=== PATIENT | female | born 1945 | race Caucasian/White ===

== ENCOUNTER 2017-09-20 18:25 | Inpatient (IN) | payer MEDICARE, OTHER ==
[~2017-09-20] VITALS: Ht 157.5 cm; Wt 59.2 kg
--- NOTE | 2017-09-20 18:32 | ED.ADGEN ---
Past History Past Medical History: Dementia, Depression, Other Adult General Chief Complaint Chief Complaint ".. Why am I here... I don't want to be here.. 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 I don't need to be here... My brother.. Juwan Camargo... I am really mad.. 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 Pt. recently in rehab. [facility] since after a fall. Pt. discharged today to [facility]. eval. to be completed by Dr. Bunn. Pt. POA is Juwan Camargo- brother [phone]. Pt. felt to have presentation of alcoholic encephalopathy, GERD, Neuropathy peripheral, delirium, alcoholic, T-4 compression fx, agitation, and depression. Pt. Follows with Dr. Lm Franz. Pt. follows agitation has not been moderated with Seroquel and Ativan. Review of Systems Review of Systems Pt. has no complaints- other than chronic pain Constitutional: Denies fever or chills [] Eyes: Denies change in visual acuity, redness, or eye pain [] HENT: Denies nasal congestion or sore throat [] Respiratory: Denies cough or shortness of breath [] Cardiovascular: No additional information not addressed in HPI [] GI: Denies abdominal pain, nausea, vomiting, bloody stools or diarrhea [] : Denies dysuria or hematuria [] Musculoskeletal: Denies back pain or joint pain [] Integument: Denies rash or skin lesions [] Neurologic: Denies headache, focal weakness or sensory changes [] Endocrine: Denies polyuria or polydipsia [] All other systems were reviewed and found to be within normal limits, except as documented in this note. Family History Family History Denies Current Medications Current Medications Current Medications Medications (Trade) Dose Ordered Sig/Yue Start Time Stop Time Status Last Admin Dose Admin Lactated Ringer's 1,000 ml @ 1,000 mls/hr 1X ONCE 09/20/17 21:00 09/20/17 21:59 Lorazepam (Ativan) 2 mg 1X ONCE 09/20/17 20:00 09/20/17 20:01 DC 09/20/17 20:00 2 MG Oxycodone/ Acetaminophen (Percocet 7.5/ 325) 2 tab 1X ONCE 09/20/17 20:00 09/20/17 20:01 DC 09/20/17 19:45 2 TAB See Nursing for homoe meds Allergies Allergies Allergies Coded Allergies Type Severity Reaction Last Updated Verified Sulfa (Sulfonamide Antibiotics) Allergy Unknown 09/20/17 Yes Physical Exam Physical Exam Constitutional: In acute emotional distress, non-toxic appearance. [] HENT: Normocephalic, atraumatic, bilateral external ears normal, oropharynx moist, no oral exudates, nose normal. [] Eyes: PERRLA, EOMI, conjunctiva normal, no discharge. [] Neck: Normal range of motion, no tenderness, supple, no stridor. [] Cardiovascular: Tachycardia Heart rate regular rhythm, no murmur [] Lungs & Thorax: Bilateral breath sounds equal at apex and few scattered wheezes on auscultation [] Abdomen: Bowel sounds normal, soft, no tenderness, no masses, no pulsatile masses. [] Old scar. Skin: Warm, dry, no erythema, no rash. [] Back: No tenderness, no CVA tenderness. [] Extremities: No tenderness, no cyanosis, no clubbing, ROM intact, no edema. [] Neurologic: Alert and oriented X 3, normal motor function, decrease plantar sensory function, no focal deficits noted. [] Psychologic: Affect anxious, judgement limited insight, mood depressed. Current Patient Data Vital Signs Vital Signs Date Time Temp Pulse Resp B/P (MAP) Pulse Ox O2 Delivery O2 Flow Rate FiO2 09/20/17 21:03 98.1 106 20 122/57 (78) 98 Room Air Lab Results Laboratory Tests Test 09/20/17 18:48 White Blood Count 5.5 x10^3/uL (4.0-11.0) Red Blood Count 3.03 x10^6/uL (3.50-5.40) L Hemoglobin 9.8 g/dL (12.0-15.5) L Hematocrit 29.0 % (36.0-47.0) L Mean Corpuscular Volume 96 fL (79-100) Mean Corpuscular Hemoglobin 33 pg (25-35) Mean Corpuscular Hemoglobin Concent 34 g/dL (31-37) Red Cell Distribution Width 16.1 % (11.5-14.5) H Platelet Count 442 x10^3/uL (140-400) H Neutrophils (%) (Auto) 59 % (31-73) Lymphocytes (%) (Auto) 26 % (24-48) Monocytes (%) (Auto) 11 % (0-9) H Eosinophils (%) (Auto) 4 % (0-3) H Basophils (%) (Auto) 1 % (0-3) Neutrophils # (Auto) 3.2 x10^3uL (1.8-7.7) Lymphocytes # (Auto) 1.4 x10^3/uL (1.0-4.8) Monocytes # (Auto) 0.6 x10^3/uL (0.0-1.1) Eosinophils # (Auto) 0.2 x10^3/uL (0.0-0.7) Basophils # (Auto) 0.0 x10^3/uL (0.0-0.2) Erythrocyte Sedimentation Rate 73 (0-25) H Prothrombin Time < 9.3 SEC (9.4-11.4) L Prothrombin Time INR 0.9 (0.9-1.1) PTT 22 SEC (23-33) L Urine Collection Type Unknown Urine Color Yellow Urine Clarity Clear Urine pH 6.0 Urine Specific [place] 1.015 Urine Protein Neg (NEG-TRACE) Urine Glucose (UA) Neg mg/dL (NEG) Urine Ketones (Stick) Neg mg/dL (NEG) Urine Blood Neg (NEG) Urine Nitrite Neg (NEG) Urine Bilirubin Neg (NEG) Urine Urobilinogen Dipstick 0.2 mg/dL (0.2 mg/dL) Urine Leukocyte Esterase Neg (NEG) Urine RBC Occ /HPF (0-2) Urine WBC 1-4 /HPF (0-4) Urine Squamous Epithelial Cells Few /LPF Urine Bacteria Few /HPF (0-FEW) Sodium Level 141 mmol/L (136-145) Potassium Level 4.3 mmol/L (3.5-5.1) Chloride Level 103 mmol/L (98-107) Carbon Dioxide Level 27 mmol/L (21-32) Anion Gap 11 (6-14) Blood Urea Nitrogen 15 mg/dL (7-20) Creatinine 0.9 mg/dL (0.6-1.0) Estimated GFR (Cockcroft-Gault) 61.9 Glucose Level 85 mg/dL (70-99) Calcium Level 8.9 mg/dL (8.5-10.1) Magnesium Level 1.9 mg/dL (1.8-2.4) Creatine Kinase 88 U/L (26-192) Creatine Kinase MB (Mass) 0.8 ng/mL (0.0-3.6) Creatine Kinase MB Relative Index 0.9 % (0-4) Troponin I Quantitative < 0.017 ng/mL (0-0.055) VY-Orz-T-Type Natriuretic Peptide 234 pg/mL (0-124) H Urine Opiates Screen Pos (NEG) Urine Methadone Screen Neg (NEG) Urine Barbiturates Neg (NEG) Urine Phencyclidine Screen Neg (NEG) Urine Amphetamine/Methamphetamine Neg (NEG) Urine Benzodiazepines Screen Neg (NEG) Urine Cocaine Screen Neg (NEG) Urine Cannabinoids Screen Neg (NEG) Urine Ethyl Alcohol Neg (NEG) EKG EKG My interpretation EKG shows a sinus tachycardia 109 bpm. No findings acute STEMI with contralateral changes.[] Radiology/Procedures Radiology/Procedures My interpretation of chest x-ray shows emphysematous type changes. Some blunting a left closed phrenic angle. Old clips right abdomen. Scoliosis, my interpretation CT shows no shift, mass, edema, bleed, or fracture. Does have findings of atrophy. I interpretation CT cervical shows multilevel degenerative joint changes. No finding to acute fracture. Course & Med Decision Making Course & Med Decision Making Pertinent Labs and Imaging studies reviewed. (See chart for details)- Admit to , Consult Dr. Andrew to follow up pending labs and medical issues. [] Final Impression Final Impression 1. Mental Status Change 2. Anxiety 3. Depression 4. Hx. of Alcoholic Encephalopathy 5. Anemia 6. Dehydration[] Problems: Dragon Disclaimer Dragon Disclaimer This electronic medical record was generated, in whole or in part, using a voice recognition dictation system. JUAN MORALES MD Sep 20, 2017 18:32
[2017-09-20 19:18] LABS: BASO % 1 % (0-3); EOS # 0.2 x10^3/uL (0.0-0.7); EOS % 4 % (0-3); HEMOGLOBIN 9.8 g/dL (12.0-15.5); LYMPH # 1.4 x10^3/uL (1.0-4.8); LYMPH % 26 % (24-48); MEAN CORPUSCULAR HEMOGLOBIN 33 pg (25-35); MEAN CORPUSCULAR HGB CONC 34 g/dL (31-37); MEAN CORPUSCULAR VOLUME 96 fL (79-100); MONO # 0.6 x10^3/uL (0.0-1.1); MONO % 11 % (0-9); NEUT # 3.2 x10^3uL (1.8-7.7); NEUT % 59 % (31-73); PLATELET COUNT 442 x10^3/uL (140-400); RED BLOOD COUNT 3.03 x10^6/uL (3.50-5.40); RED CELL DISTRIBUTION WIDTH 16.1 % (11.5-14.5); WHITE BLOOD COUNT 5.5 x10^3/uL (4.0-11.0)
[2017-09-20 19:22] LABS: AMPHETAMINE/METHAMPHETAMINE NEG (NEG); BARBITURATES NEG (NEG); BENZODIAZEPINES NEG (NEG); CANNABINOIDS NEG (NEG); COCAINE NEG (NEG); METHADONE NEG (NEG); OPIATES POS (NEG); PHENCYCLIDINE NEG (NEG)
[2017-09-20 19:34] LABS: BILIRUBIN,URINE NEG (NEG); CLARITY,URINE CLEAR; COLOR,URINE YELLOW; GLUCOSE,URINE NEG (NEG)
[2017-09-20 19:36] LABS: CALCIUM 8.9 mg/dL (8.5-10.1); CREATININE 0.9 mg/dL (0.6-1.0); GFR 61.9; MAGNESIUM 1.9 mg/dL (1.8-2.4); POTASSIUM 4.3 mmol/L (3.5-5.1)
[2017-09-20 19:37] LABS: BACTERIA,URINE FEW /HPF (0-FEW); NITRITE,URINE NEG (NEG); RBC,URINE OCC /HPF (0-2); SQUAMOUS EPITHELIAL CELL,UR FEW /LPF; UROBILINOGEN,URINE 0.2 mg/dL (0.2 mg/dL)
[2017-09-20] MEDS ORDERED: oxyCODONE/APAP 7.5/325 1 TAB TABLET ONE (19:44)
[2017-09-20] MEDS ORDERED: LORazepam 2 MG/ML VIAL IV ONE (20:00)
[2017-09-20] MEDS ORDERED: oxyCODONE/APAP 7.5/325 1 TAB TABLET PO ONE (20:00)
--- NOTE | 2017-09-20 20:22 | RAD ---
Indication: Confusion, possible fall. TECHNIQUE: CT had without IV contrast. CT cervical spine without IV contrast. COMPARISON: None FINDINGS: No pathologic extra-axial or intra-axial fluid collection. Mild diffuse cerebral and cerebellar atrophy noted. The ventricles and basal cisterns are within normal limits. No acute intracranial bleed. No focal loss of goode-white differentiation. Visualized orbits within normal limits. No calvarial fractures. There is opacification of the partially visualized ethmoid air cells and left sinus. IMPRESSION: 1. No acute intracranial process on this noncontrast CT. 2. Left frontal and ethmoid sinus disease. CT cervical spine: FINDINGS: Cervical spine is in normal anatomic alignment. Atlantoaxial joint interval is preserved with degenerative changes. No compression deformities. Facet joints are in normal anatomic alignment. Multilevel intervertebral disc space narrowing is seen with anterior and posterior osteophyte formation. No acute fractures. Visualized noncontrast soft tissues within the neck are within normal limits. IMPRESSION: 1. No acute fractures. 2. Multilevel degenerative disc disease with advanced facet arthropathy. Electronically signed by: Duke Siegel DO (09/20/2017 8:19 PM) [facility]
[2017-09-20 20:35] LABS: SEDIMENTATION RATE 73 (0-25)
--- NOTE | 2017-09-20 20:38 | EKG ---
[address] [address] Test Date: 2017-09-20 Test Time: 18:53:17 Pat Name: EMANUEL XIAO Department: Room: Gender: F Respiratory Manager: CASEY : 1945 Requested By: JUAN MORALES Order Number: [id number] Reading MD: Demetrius Stiles MD Measurements Intervals [place] Rate: 109 P: 42 ID: [id number] QRS: 67 QRSD: 66 T: 22 QT: 310 QTc: 419 Interpretive Statements SINUS TACHYCARDIA Electronically Signed On 09-23-2017 16:33:07 CDT by Demetrius Stiles MD
[2017-09-20] MEDS ORDERED: CALC500T PO (20:58)
[2017-09-20] MEDS ORDERED: LORA10TA68 PO (20:58)
[2017-09-20] MEDS ORDERED: FOLI1TAB16 PO (20:58)
[2017-09-20] MEDS ORDERED: MENT118G TP (20:58)
[2017-09-20] MEDS ORDERED: TRAM-48 PO (20:58)
[2017-09-20] MEDS ORDERED: FLUT16SP21 NS (20:58)
[2017-09-20] MEDS ORDERED: THIA100T22 PO (20:58)
[2017-09-20] MEDS ORDERED: DIPH25CA58 PO (20:58)
[2017-09-20] MEDS ORDERED: MULT-638 PO (20:58)
[2017-09-20] MEDS ORDERED: HYDR-971 PO (20:58)
[2017-09-20] MEDS ORDERED: LIDO700A39 TP (20:58)
[2017-09-20] MEDS ORDERED: QUET25TA5 PO (20:58)
[2017-09-20] MEDS ORDERED: LACT10SO PO (20:58)
[2017-09-20] MEDS ORDERED: LORA0.5T96 PO (20:58)
[2017-09-20] MEDS ORDERED: SODI44SP NS (20:58)
[2017-09-20] MEDS: PATCH REMOVAL. MC SCH (21:00)
[2017-09-20] MEDS ORDERED: IV RINGERS SOLUTION,LACTATED 1,000 ML IV ONE (21:00)
[2017-09-20] MEDS ORDERED: NON FORMULARY ITEM (Menthol (Biofreeze) 1 APP) TP PRN (22:00)
[2017-09-20] MEDS ORDERED: MAG HYDROX/AL HYDROX/SIMETH 30 ML ORAL.SUSP PO PRN (22:00)
[2017-09-20] MEDS ORDERED: METHYL SALICYLATE/MENTHOL TOPICAL OINTMENT 29GM TUBE. TP PRN (22:00)
[2017-09-20] MEDS ORDERED: MAGNESIUM HYDROXIDE 2,400 MG/30 ML ORAL.SUSP. PO PRN (22:00)
[2017-09-20] MEDS ORDERED: LACTULOSE 20 GM/30 ML SOLUTION. PO PRN (22:15)
[2017-09-20] MEDS: diphenhydrAMINE HCL 25 MG CAPSULE PO PRN (23:03)
[2017-09-20] MEDS: QUEtiapine 25 MG TABLET. PO SCH (23:15)
[2017-09-20 23:22] VITALS: BP 122/72
[2017-09-21] MEDS: HYDROcodone/APAP 5/325MG 1 TAB TABLET PO PRN ×3 (03:55→19:37)
[2017-09-21] MEDS: LORazepam 0.5 MG TABLET PO PRN ×3 (06:18→19:52)
[2017-09-21 06:31] VITALS: BP 105/51
[2017-09-21 08:10] LABS: BASO # 0.1 x10^3/uL (0.0-0.2); BASO % 2 % (0-3); EOS # 0.2 x10^3/uL (0.0-0.7); EOS % 5 % (0-3); HEMATOCRIT 27.3 % (36.0-47.0); HEMOGLOBIN 9.2 g/dL (12.0-15.5); LYMPH # 1.2 x10^3/uL (1.0-4.8); LYMPH % 26 % (24-48); MEAN CORPUSCULAR HEMOGLOBIN 33 pg (25-35); MEAN CORPUSCULAR HGB CONC 34 g/dL (31-37); MEAN CORPUSCULAR VOLUME 97 fL (79-100); MONO # 0.5 x10^3/uL (0.0-1.1); MONO % 11 % (0-9); NEUT # 2.5 x10^3uL (1.8-7.7); NEUT % 55 % (31-73); PLATELET COUNT 424 x10^3/uL (140-400); RED BLOOD COUNT 2.83 x10^6/uL (3.50-5.40); RED CELL DISTRIBUTION WIDTH 16.1 % (11.5-14.5); WHITE BLOOD COUNT 4.6 x10^3/uL (4.0-11.0)
[2017-09-21 08:25] LABS: CALCIUM 9.1 mg/dL (8.5-10.1); CREATININE 0.8 mg/dL (0.6-1.0); GFR 70.9; POTASSIUM 3.8 mmol/L (3.5-5.1)
--- NOTE | 2017-09-21 09:10 | RAD ---
EXAM: Chest one view. HISTORY: Dyspnea. COMPARISON: None. FINDINGS: A frontal view of the chest is obtained. There is rotation to the left. Mild opacities in the left base most likely indicate atelectasis or scarring. There is no pneumothorax or pleural effusion. The heart is not enlarged. Cholecystectomy clips are noted. IMPRESSION: 1. No confluent infiltrates. Mild opacities in the left base most likely indicate atelectasis or scarring. Comparison with older radiographs could confirm long-term stability.
[2017-09-21] MEDS: CETIRIZINE HCL 10 MG TABLET PO SCH (09:24)
[2017-09-21] MEDS: MULTIVITAMIN with MINERAL TABLET. PO SCH (09:24)
[2017-09-21] MEDS: FOLIC ACID 1 MG TABLET PO SCH (09:24)
[2017-09-21] MEDS: QUEtiapine 25 MG TABLET. PO SCH ×2 (09:24→14:08)
[2017-09-21] MEDS: THIAMINE 100 MG TABLET. PO SCH ×2 (09:24→19:33)
[2017-09-21] MEDS: LIDOCAINE (700MG/PATCH) PATCH. TP SCH (09:25)
[2017-09-21] MEDS: FLUTICASONE 50MCG/NASAL SPRAY 16GM BOTTLE. NS SCH ×2 (09:25→19:36)
[2017-09-21 14:08] LABS: THYROXINE 4.9 ug/dL (4.5-12.0)
--- NOTE | 2017-09-21 16:02 | EKG ---
[address] [address] Test Date: 2017-09-21 Test Time: 15:54:34 Pat Name: EMANUEL XIAO Department: Room: [address] [place] [address] Gender: F Sample Sawyer: ROBERT : 1945 Requested By: TEO FINN Order Number: [id number] Reading MD: Demetrius Stiles MD Measurements Intervals [place] Rate: 119 P: 42 IA: 140 QRS: 57 QRSD: 72 T: 16 QT: 302 QTc: 431 Interpretive Statements SINUS TACHYCARDIA LOW VOLTAGE Electronically Signed On 09-30-2017 11:44:55 CDT by Demetrius Stiles MD
[2017-09-21 16:30] VITALS: BP 117/58
--- NOTE | 2017-09-21 18:24 | PDOC ---
Exam Note: Brandon Note: Please also refer to the separate dictated note~for this date of service dictated separately.~Patient seen individually. Discussed the patient with Nursing staff reviewed the chart.~Reviewed interim history and current functioning. Reviewed vital signs,~Labs/ Radiology~and current medications noted below. Continue current treatment with the changes noted in the dictated addendum note Assessment: Vital Signs: Vital Signs Date Time Temp Pulse Resp B/P (MAP) Pulse Ox O2 Delivery O2 Flow Rate FiO2 09/21/17 16:30 97.3 126 18 117/58 (77) 100 Room Air I&O Intake and Output 09/21/17 07:00 Intake Total 120 ml Balance 120 ml Intake Oral 120 ml Labs: Laboratory Tests Test 09/20/17 18:48 09/20/17 20:25 09/20/17 20:36 09/21/17 07:44 White Blood Count 5.5 x10^3/uL (4.0-11.0) 4.6 x10^3/uL (4.0-11.0) Red Blood Count 3.03 x10^6/uL (3.50-5.40) L 2.83 x10^6/uL (3.50-5.40) L Hemoglobin 9.8 g/dL (12.0-15.5) L 9.2 g/dL (12.0-15.5) L Hematocrit 29.0 % (36.0-47.0) L 27.3 % (36.0-47.0) L Mean Corpuscular Volume 96 fL (79-100) 97 fL (79-100) Mean Corpuscular Hemoglobin 33 pg (25-35) 33 pg (25-35) Mean Corpuscular Hemoglobin Concent 34 g/dL (31-37) 34 g/dL (31-37) Red Cell Distribution Width 16.1 % (11.5-14.5) H 16.1 % (11.5-14.5) H Platelet Count 442 x10^3/uL (140-400) H 424 x10^3/uL (140-400) H Neutrophils (%) (Auto) 59 % (31-73) 55 % (31-73) Lymphocytes (%) (Auto) 26 % (24-48) 26 % (24-48) Monocytes (%) (Auto) 11 % (0-9) H 11 % (0-9) H Eosinophils (%) (Auto) 4 % (0-3) H 5 % (0-3) H Basophils (%) (Auto) 1 % (0-3) 2 % (0-3) Neutrophils # (Auto) 3.2 x10^3uL (1.8-7.7) 2.5 x10^3uL (1.8-7.7) Lymphocytes # (Auto) 1.4 x10^3/uL (1.0-4.8) 1.2 x10^3/uL (1.0-4.8) Monocytes # (Auto) 0.6 x10^3/uL (0.0-1.1) 0.5 x10^3/uL (0.0-1.1) Eosinophils # (Auto) 0.2 x10^3/uL (0.0-0.7) 0.2 x10^3/uL (0.0-0.7) Basophils # (Auto) 0.0 x10^3/uL (0.0-0.2) 0.1 x10^3/uL (0.0-0.2) Erythrocyte Sedimentation Rate 73 (0-25) H Prothrombin Time < 9.3 SEC (9.4-11.4) L Prothrombin Time INR 0.9 (0.9-1.1) PTT 22 SEC (23-33) L Urine Collection Type Unknown Urine Color Yellow Urine Clarity Clear Urine pH 6.0 Urine Specific [place] 1.015 Urine Protein Neg (NEG-TRACE) Urine Glucose (UA) Neg mg/dL (NEG) Urine Ketones (Stick) Neg mg/dL (NEG) Urine Blood Neg (NEG) Urine Nitrite Neg (NEG) Urine Bilirubin Neg (NEG) Urine Urobilinogen Dipstick 0.2 mg/dL (0.2 mg/dL) Urine Leukocyte Esterase Neg (NEG) Urine RBC Occ /HPF (0-2) Urine WBC 1-4 /HPF (0-4) Urine Squamous Epithelial Cells Few /LPF Urine Bacteria Few /HPF (0-FEW) Sodium Level 141 mmol/L (136-145) 144 mmol/L (136-145) Potassium Level 4.3 mmol/L (3.5-5.1) 3.8 mmol/L (3.5-5.1) Chloride Level 103 mmol/L (98-107) 107 mmol/L (98-107) Carbon Dioxide Level 27 mmol/L (21-32) 27 mmol/L (21-32) Anion Gap 11 (6-14) 10 (6-14) Blood Urea Nitrogen 15 mg/dL (7-20) 12 mg/dL (7-20) Creatinine 0.9 mg/dL (0.6-1.0) 0.8 mg/dL (0.6-1.0) Estimated GFR (Cockcroft-Gault) 61.9 70.9 Glucose Level 85 mg/dL (70-99) 108 mg/dL (70-99) H Calcium Level 8.9 mg/dL (8.5-10.1) 9.1 mg/dL (8.5-10.1) Magnesium Level 1.9 mg/dL (1.8-2.4) Creatine Kinase 88 U/L (26-192) Creatine Kinase MB (Mass) 0.8 ng/mL (0.0-3.6) Creatine Kinase MB Relative Index 0.9 % (0-4) Troponin I Quantitative < 0.017 ng/mL (0-0.055) IR-Sfn-I-Type Natriuretic Peptide 234 pg/mL (0-124) H Thyroid Stimulating Hormone (TSH) 2.251 uIU/mL (0.358-3.740) Urine Opiates Screen Pos (NEG) Urine Methadone Screen Neg (NEG) Urine Barbiturates Neg (NEG) Urine Phencyclidine Screen Neg (NEG) Urine Amphetamine/Methamphetamine Neg (NEG) Urine Benzodiazepines Screen Neg (NEG) Urine Cocaine Screen Neg (NEG) Urine Cannabinoids Screen Neg (NEG) Urine Ethyl Alcohol Neg (NEG) Iron Level 53 ug/dL (50-170) Total Iron Binding Capacity 241 ug/dL (250-450) L Iron Saturation 22 % (15-34) Triglycerides Level 159 mg/dL (0-150) H Cholesterol Level 219 mg/dL (0-200) H LDL Cholesterol, Calculated 110 mg/dL (0-100) H VLDL Cholesterol, Calculated 31 mg/dL (0-40) Non-HDL Cholesterol Calculated 141 mg/dL (0-129) H HDL Cholesterol 78 mg/dL (40-60) H Cholesterol/HDL Ratio 2.0 Thyroxine (T4) 4.9 ug/dL (4.5-12.0) Total Triiodothyronine (TT3) 107 ng/dL (71-180) Reticulocyte Count (auto) 1.4 % (0.5-2.5) Current Medications: Meds: Current Medications Lorazepam (Ativan) 2 mg 1X ONCE IV Last administered on 09/20/17at 20:00; Start 09/20/17 at 20:00; Stop 09/20/17 at 20:01; Status DC Oxycodone/ Acetaminophen (Percocet 7.5/ 325) 1 tab STK-MED ONCE .ROUTE ; Start 09/20/17 at 19:44; Stop 09/20/17 at 19:45; Status DC Oxycodone/ Acetaminophen (Percocet 7.5/ 325) 2 tab 1X ONCE PO Last administered on 09/20/17at 19:45; Start 09/20/17 at 20:00; Stop 09/20/17 at 20:01 ; Status DC Lactated Ringer's 1,000 ml @ 1,000 mls/hr 1X ONCE IV ; Start 09/20/17 at 21:00 ; Stop 09/20/17 at 21:59; Status DC Acetaminophen (Tylenol) 650 mg PRN Q6HRS PRN PO PAIN / TEMP; Start 09/20/17 at 22:00 Multi-Ingredient Ointment (Analgesic [place]) 1 kenneth PRN QID PRN TP MUSCLE PAIN; Start 09/20/17 at 22:00 Al Hydroxide/Mg Hydroxide (Mylanta Plus Xs) 15 ml PRN AFTMEALHC PRN PO DYSPEPSIA Last administered on 09/21/17at 01:24; Start 09/20/17 at 22:00 Magnesium Hydroxide (Milk Of Magnesia) 2,400 mg PRN QHS PRN PO CONSTIPATION; Start 09/20/17 at 22:00 Lorazepam (Ativan) 0.5 mg PRN Q4HRS PRN PO ANXIETY / AGITATION Last administered on 09/21/17at 15:28; Start 09/20/17 at 22:00 Quetiapine Fumarate (SEROquel) 25 mg TID PO Last administered on 09/21/17at 14: 08; Start 09/20/17 at 22:30 Calcium Carbonate/ Glycine (Tums) 500 mg PRN QID PRN PO DYSPEPSIA; Start at 22:00 Diphenhydramine HCl (Benadryl) 25 mg PRN BID PRN PO ALLERGIES Last administered on 09/20/17 23:03; Start 09/20/17 at 22:00 Fluticasone Propionate (Flonase) 2 spray BID NS Last administered on 09/21/17 09:25; Start 09/21/17 at 09:00 Folic Acid (Folic Acid) 1 mg DAILY PO Last administered on 09/21/17 09:24; Start 09/21/17 at 09:00 Acetaminophen/ Hydrocodone Bitart (Lortab 5/325) 1 tab PRN Q6HRS PRN PO MODERATE PAIN Last administered on 09/21/17at 11:37; Start 09/20/17 at 22:00 Acetaminophen/ Hydrocodone Bitart (Lortab 5/325) 2 tab PRN Q6HRS PRN PO SEVERE PAIN Last administered on 09/21/17 03:55; Start 09/20/17 at 22:00 Lidocaine (Lidoderm) 1 patch DAILY TP Last administered on 09/21/17 09:25; Start 09/21/17 at 09:00 Multivitamins/ Calcium (Thera-M Plus) 1 tab DAILY PO Last administered on 09:24; Start 09/21/17 at 09:00 Sodium Chloride (Saline Mist Nasal) 2 kenneth PRN Q2HR PRN NS Nasal Congestion; Start 09/20/17 at 22:00 Tramadol HCl (Ultram) 50 mg PRN Q6HRS PRN PO PAIN; Start 09/20/17 at 22:00 Lactulose (Lactulose) 10 gm PRN QID PRN PO CONSTIPATION; Start 09/20/17 at 22: 15 Cetirizine HCl (ZyrTEC) 10 mg DAILY PO Last administered on 09/21/17 09:24; Start 09/21/17 at 09:00 Non-Formulary Medication (Menthol (Biofreeze)) 1 kenneth PRN TID PRN TP MUSCLE PAIN ; Start 09/20/17 at 22:00; Status UNV Thiamine HCl (Vitamin B-1) 100 mg BID PO Last administered on 09/21/17at 09:24; Start 09/21/17 at 09:00 Miscellaneous (Lidoderm Patch Removal) 1 ea QHS MC Last administered on at 21:00; Start 09/20/17 at 21:00 Active Scripts Active Reported Claritin (Loratadine) 10 Mg Tablet 10 Mg PO DAILY [place] (Sodium Chloride) 44 Ml Anna 1 Anna NS PRN Q2HR PRN Fluticasone Propionate Nasal Anna (Fluticasone Propionate) 16 Gm Anna.susp 2 Anna NS BID Benadryl (Diphenhydramine Hcl) 25 Mg Capsule 25 Mg PO PRN BID PRN Ultram (Tramadol HCl) 50 Mg Tablet 50 Mg PO PRN Q6HRS PRN Ativan (Lorazepam) 0.5 Mg Tablet 0.5 Mg PO PRN Q4HRS PRN Seroquel (Quetiapine Fumarate) 25 Mg Tablet 25 Mg PO TID Calcium Carbonate 500 Mg Tablet 500 Mg PO PRN QID PRN Biofreeze (Menthol) 118 Ml Gel..ml. 1 Kenneth TP PRN TID PRN Lactulose 10 Gm/15 Ml Solution 10 Gm PO PRN QID PRN Vitamin B-1 (Thiamine Mononitrate) 100 Mg Tablet 100 Mg PO BID Thera M Plus Tablet (Multivits,Ca,Minerals/Iron/FA) 1 Each Tablet 1 Tab PO DAILY Lidocaine 1 Each Adh..patch 1 Patch TP DAILY [place] 5-325 Tablet (Hydrocodone Bit/Acetaminophen) 1 Each Tablet 2 Tab PO PRN Q6HRS PRN [place] 5-325 Tablet (Hydrocodone Bit/Acetaminophen) 1 Each Tablet 1 Tab PO PRN Q6HRS PRN Folic Acid 1 Mg Tablet 1 Mg PO DAILY I have reviewed the current psychotropics carefully including drug interactions. Risk benefit ratio favors no change other than as noted in my dictated progress note. Diagnosis: Problems: (1) Major depressive disorder, recurrent episode (2) Anxiety disorder (3) Alcohol-induced persisting dementia (4) Alcohol dependence (5) Impulse control disorder DAVID SWAN MD Sep 21, 2017 18:24
[2017-09-21] MEDS: PATCH REMOVAL. MC SCH (19:37)
[2017-09-21] MEDS: QUEtiapine 50 MG TABLET. PO SCH (19:37)
--- NOTE | 2017-09-21 19:53 | PDOC ---
Exam Note: Brandon Note: Please also refer to the separate dictated note~for this date of service dictated separately.~Patient seen individually. Discussed the patient with Nursing staff reviewed the chart.~Reviewed interim history and current functioning. Reviewed vital signs,~Labs/ Radiology~and current medications noted below. Continue current treatment with the changes noted in the dictated addendum note Assessment: Vital Signs: Vital Signs Date Time Temp Pulse Resp B/P (MAP) Pulse Ox O2 Delivery O2 Flow Rate FiO2 09/21/17 19:37 20 Room Air 09/21/17 16:30 97.3 126 117/58 (77) 100 I&O Intake and Output 09/21/17 07:00 Intake Total 120 ml Balance 120 ml Intake Oral 120 ml Labs: Laboratory Tests Test 09/20/17 20:25 09/20/17 20:36 09/21/17 07:44 Iron Level 53 ug/dL (50-170) Total Iron Binding Capacity 241 ug/dL (250-450) L Iron Saturation 22 % (15-34) Triglycerides Level 159 mg/dL (0-150) H Cholesterol Level 219 mg/dL (0-200) H LDL Cholesterol, Calculated 110 mg/dL (0-100) H VLDL Cholesterol, Calculated 31 mg/dL (0-40) Non-HDL Cholesterol Calculated 141 mg/dL (0-129) H HDL Cholesterol 78 mg/dL (40-60) H Cholesterol/HDL Ratio 2.0 Thyroxine (T4) 4.9 ug/dL (4.5-12.0) Total Triiodothyronine (TT3) 107 ng/dL (71-180) Reticulocyte Count (auto) 1.4 % (0.5-2.5) White Blood Count 4.6 x10^3/uL (4.0-11.0) Red Blood Count 2.83 x10^6/uL (3.50-5.40) L Hemoglobin 9.2 g/dL (12.0-15.5) L Hematocrit 27.3 % (36.0-47.0) L Mean Corpuscular Volume 97 fL (79-100) Mean Corpuscular Hemoglobin 33 pg (25-35) Mean Corpuscular Hemoglobin Concent 34 g/dL (31-37) Red Cell Distribution Width 16.1 % (11.5-14.5) H Platelet Count 424 x10^3/uL (140-400) H Neutrophils (%) (Auto) 55 % (31-73) Lymphocytes (%) (Auto) 26 % (24-48) Monocytes (%) (Auto) 11 % (0-9) H Eosinophils (%) (Auto) 5 % (0-3) H Basophils (%) (Auto) 2 % (0-3) Neutrophils # (Auto) 2.5 x10^3uL (1.8-7.7) Lymphocytes # (Auto) 1.2 x10^3/uL (1.0-4.8) Monocytes # (Auto) 0.5 x10^3/uL (0.0-1.1) Eosinophils # (Auto) 0.2 x10^3/uL (0.0-0.7) Basophils # (Auto) 0.1 x10^3/uL (0.0-0.2) Sodium Level 144 mmol/L (136-145) Potassium Level 3.8 mmol/L (3.5-5.1) Chloride Level 107 mmol/L (98-107) Carbon Dioxide Level 27 mmol/L (21-32) Anion Gap 10 (6-14) Blood Urea Nitrogen 12 mg/dL (7-20) Creatinine 0.8 mg/dL (0.6-1.0) Estimated GFR (Cockcroft-Gault) 70.9 Glucose Level 108 mg/dL (70-99) H Calcium Level 9.1 mg/dL (8.5-10.1) Current Medications: Meds: Current Medications Lorazepam (Ativan) 2 mg 1X ONCE IV Last administered on 09/20/17at 20:00; Start 09/20/17 at 20:00; Stop 09/20/17 at 20:01; Status DC Oxycodone/ Acetaminophen (Percocet 7.5/ 325) 1 tab STK-MED ONCE .ROUTE ; Start 09/20/17 at 19:44; Stop 09/20/17 at 19:45; Status DC Oxycodone/ Acetaminophen (Percocet 7.5/ 325) 2 tab 1X ONCE PO Last administered on 09/20/17at 19:45; Start 09/20/17 at 20:00; Stop 09/20/17 at 20:01 ; Status DC Lactated Ringer's 1,000 ml @ 1,000 mls/hr 1X ONCE IV ; Start 09/20/17 at 21:00 ; Stop 09/20/17 at 21:59; Status DC Acetaminophen (Tylenol) 650 mg PRN Q6HRS PRN PO PAIN / TEMP; Start 09/20/17 at 22:00 Multi-Ingredient Ointment (Analgesic [place]) 1 kenneth PRN QID PRN TP MUSCLE PAIN; Start 09/20/17 at 22:00 Al Hydroxide/Mg Hydroxide (Mylanta Plus Xs) 15 ml PRN AFTMEALHC PRN PO DYSPEPSIA Last administered on 09/21/17at 01:24; Start 09/20/17 at 22:00 Magnesium Hydroxide (Milk Of Magnesia) 2,400 mg PRN QHS PRN PO CONSTIPATION; Start 09/20/17 at 22:00 Lorazepam (Ativan) 0.5 mg PRN Q4HRS PRN PO ANXIETY / AGITATION Last administered on 09/21/17at 15:28; Start 09/20/17 at 22:00 Quetiapine Fumarate (SEROquel) 25 mg TID PO Last administered on 09/21/17at 14: 08; Start 09/20/17 at 22:30; Stop 09/21/17 at 18:38; Status DC Calcium Carbonate/ Glycine (Tums) 500 mg PRN QID PRN PO DYSPEPSIA; Start at 22:00 Diphenhydramine HCl (Benadryl) 25 mg PRN BID PRN PO ALLERGIES Last administered on 09/20/17at 23:03; Start 09/20/17 at 22:00 Fluticasone Propionate (Flonase) 2 spray BID NS Last administered on 09/21/17at 19:36; Start 09/21/17 at 09:00 Folic Acid (Folic Acid) 1 mg DAILY PO Last administered on 09/21/17at 09:24; Start 09/21/17 at 09:00 Acetaminophen/ Hydrocodone Bitart (Lortab 5/325) 1 tab PRN Q6HRS PRN PO MODERATE PAIN Last administered on 09/21/17at 19:37; Start 09/20/17 at 22:00 Acetaminophen/ Hydrocodone Bitart (Lortab 5/325) 2 tab PRN Q6HRS PRN PO SEVERE PAIN Last administered on 09/21/17 03:55; Start 09/20/17 at 22:00 Lidocaine (Lidoderm) 1 patch DAILY TP Last administered on 09/21/17 09:25; Start 09/21/17 at 09:00 Multivitamins/ Calcium (Thera-M Plus) 1 tab DAILY PO Last administered on 09:24; Start 09/21/17 at 09:00 Sodium Chloride (Saline Mist Nasal) 2 kenneth PRN Q2HR PRN NS Nasal Congestion; Start 09/20/17 at 22:00 Tramadol HCl (Ultram) 50 mg PRN Q6HRS PRN PO PAIN; Start 09/20/17 at 22:00 Lactulose (Lactulose) 10 gm PRN QID PRN PO CONSTIPATION; Start 09/20/17 at 22: 15 Cetirizine HCl (ZyrTEC) 10 mg DAILY PO Last administered on 09/21/17 09:24; Start 09/21/17 at 09:00 Non-Formulary Medication (Menthol (Biofreeze)) 1 kenneth PRN TID PRN TP MUSCLE PAIN ; Start 09/20/17 at 22:00; Status UNV Thiamine HCl (Vitamin B-1) 100 mg BID PO Last administered on 09/21/17 19:33; Start 09/21/17 at 09:00 Miscellaneous (Lidoderm Patch Removal) 1 ea QHS MC Last administered on 19:37; Start 09/20/17 at 21:00 Quetiapine Fumarate (SEROquel) 25 mg BID92 PO ; Start 09/22/17 at 09:00 Quetiapine Fumarate (SEROquel) 50 mg QHS PO Last administered on 09/21/17 19: 37; Start 09/21/17 at 21:00 Active Scripts Active Reported Claritin (Loratadine) 10 Mg Tablet 10 Mg PO DAILY [place] (Sodium Chloride) 44 Ml [place] 1 [place] NS PRN Q2HR PRN Fluticasone Propionate Nasal [place] (Fluticasone Propionate) 16 Gm [place].susp 2 [place] NS BID Benadryl (Diphenhydramine Hcl) 25 Mg Capsule 25 Mg PO PRN BID PRN Ultram (Tramadol HCl) 50 Mg Tablet 50 Mg PO PRN Q6HRS PRN Ativan (Lorazepam) 0.5 Mg Tablet 0.5 Mg PO PRN Q4HRS PRN Seroquel (Quetiapine Fumarate) 25 Mg Tablet 25 Mg PO TID Calcium Carbonate 500 Mg Tablet 500 Mg PO PRN QID PRN Biofreeze (Menthol) 118 Ml Gel..ml. 1 Kenneth TP PRN TID PRN Lactulose 10 Gm/15 Ml Solution 10 Gm PO PRN QID PRN Vitamin B-1 (Thiamine Mononitrate) 100 Mg Tablet 100 Mg PO BID Thera M Plus Tablet (Multivits,Ca,Minerals/Iron/FA) 1 Each Tablet 1 Tab PO DAILY Lidocaine 1 Each Adh..patch 1 Patch TP DAILY [place] 5-325 Tablet (Hydrocodone Bit/Acetaminophen) 1 Each Tablet 2 Tab PO PRN Q6HRS PRN [place] 5-325 Tablet (Hydrocodone Bit/Acetaminophen) 1 Each Tablet 1 Tab PO PRN Q6HRS PRN Folic Acid 1 Mg Tablet 1 Mg PO DAILY I have reviewed the current psychotropics carefully including drug interactions. Risk benefit ratio favors no change other than as noted in my dictated progress note. Diagnosis: Problems: (1) Depression (2) Alcohol-induced persisting dementia (3) Alcohol dependence (4) Anxiety disorder (5) Impulse control disorder (6) Major depressive disorder, recurrent episode DAVID SWAN MD Sep 21, 2017 19:53
[2017-09-21] MEDS: SODIUM CHLORIDE 0.65% NASAL SPRAY 45ML BOTTLE. NS PRN (20:49)
[2017-09-22 03:10] LABS: HEMOGLOBIN A1C 4.5 % (4.8-5.6)
[2017-09-22] MEDS: HYDROcodone/APAP 5/325MG 1 TAB TABLET PO PRN ×3 (06:15→17:49)
[2017-09-22 06:25] VITALS: BP 134/73
--- NOTE | 2017-09-22 08:14 | HP ---
ADMIT DATE: 09/20/2017 PSYCHIATRIC ADMISSION HISTORY/EVALUATION This note covers the elements not covered in my initial note for of 09/21/2017. IDENTIFYING DATA: The patient is a 72-year-old female referred to us from [facility] by Dr. Lm Franz, her primary care physician and admitted by Juwan Camargo, her brother who is the power of real estate attorney after the power of real estate attorney was activated following neuropsychological testing by a psychologist at the facility after the patient was voicing suicidal ideation, even though she has denied having a plan, was noted to be emotionally labile, hopeless, helpless, worthless. Apparently, her 5 weeks ago. Since then, she has been extremely depressed, recommended inpatient psychiatric stabilization and close observation due to her suicidal risk for depression within the context of her dementia secondary to alcohol abuse. The patient was seen individually, discussed with nursing staff, reviewed the chart. CHIEF COMPLAINT: "My back is hurting." HISTORY OF PRESENT ILLNESS: The patient has a history of worsening symptoms of depression over the past few weeks, worse since her 5 weeks ago. She has had sleep and appetite changes. Admits to feeling helpless, hopeless, worthless and has been more confused secondary to dementia related to alcohol abuse. No clear history of bipolar disorder or homicidal ideation. PAST PSYCHIATRIC HISTORY: As above. PAST MEDICAL HISTORY: Positive alcoholic encephalopathy, GERD, neuropathy, alcohol related delirium, history of alcohol abuse, T4 compression fracture. DRUG ALLERGIES: SULFA. CODE STATUS: Full code. CURRENT PSYCHOTROPICS: Ativan 0.5 mg q. 4 hours p.r.n. anxiety, Seroquel 25 mg 3 times a day. The patient has a TLSO brace that needs to be worn ____ . FAMILY HISTORY: Noncontributory. SOCIAL HISTORY: Positive history of alcohol abuse. No physical, sexual or elder abuse history is noted. She is not known to be a perpetrator. MENTAL STATUS EXAMINATION: The patient was seen individually in the evening of 09/21/2017. She is oriented to her name, date of and age, but little else. She complains of back pain. REVIEW OF SYSTEMS: No CV, , pulmonary, eye, ENT system symptoms on review. Speech is coherent, rapid at times. Abstraction fair, computation impaired, language function intact, attention span short. Mood and affect remains somewhat labile. LABORATORY DATA: Reviewed. REACTION TO HOSPITALIZATION: The patient oblivious of this assets, supportive brother who is her power of real estate attorney. 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 Rest as above. PLAN: Admit to geropsychiatry unit at [facility]. I will see the patient daily individually from a psychiatric standpoint, medical followup per Dr. Andrew/Dr. Ledesma. 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 We will go ahead and increase the Seroquel from 25 mg 3 times a day to 25 mg twice a day, 50 mg at bedtime; add Zyprexa 2.5 mg q. 2 hours p.r.n. psychosis, agitation, max 10 mg in 24 hours. Rest will be decided after baseline assessment. MAN Dannielle SWAN MD DR: KATHERINE/mauro JOB#: [id number] / [id number]
[2017-09-22] MEDS: FOLIC ACID 1 MG TABLET PO SCH (08:19)
[2017-09-22] MEDS: THIAMINE 100 MG TABLET. PO SCH ×2 (08:19→19:18)
[2017-09-22] MEDS: diphenhydrAMINE HCL 25 MG CAPSULE PO PRN (08:19)
[2017-09-22] MEDS: MULTIVITAMIN with MINERAL TABLET. PO SCH (08:19)
[2017-09-22] MEDS: CETIRIZINE HCL 10 MG TABLET PO SCH (08:19)
[2017-09-22] MEDS: LIDOCAINE (700MG/PATCH) PATCH. TP SCH (08:20)
[2017-09-22] MEDS: QUEtiapine 25 MG TABLET. PO SCH ×2 (08:21→13:08)
[2017-09-22] MEDS: FLUTICASONE 50MCG/NASAL SPRAY 16GM BOTTLE. NS SCH ×2 (08:21→19:19)
--- NOTE | 2017-09-22 13:01 | CONS ---
DATE OF CONSULTATION: 09/21/2017 REASON FOR CONSULTATION: Medical management. HISTORY OF PRESENT ILLNESS: The patient is a 72-year-old female patient, who was admitted from [facility]. She has been making suicidal ideation statements with no glans. She is labile. She has lost her about 5 weeks ago. She has depressed affect and was admitted. All this in a background of major neurocognitive disorder, alcohol abuse and adjustment disorder. She is here for inpatient psychiatric stabilization. PAST MEDICAL HISTORY: Significant for alcohol encephalopathy, gastroesophageal reflux disease, neuropathy, delirium, tachycardia and T4 compression fracture. PAST SURGICAL HISTORY: Significant for cataract and hysterectomy. FAMILY HISTORY: Unremarkable. SOCIAL HISTORY: She came from [facility]. Before that she used to live with her . She does not smoke. She actually has two 2 sons, one live in [place] and another is an [place]. She does not smoke, but apparently drinks alcohol heavily. REVIEW OF SYSTEMS: The patient's labs per history of present illness. ALLERGIES: She is allergic to SULFA. MEDICATIONS: She is currently on following medications: She is on diphenhydramine 25 mg twice a day as needed, loratadine 10 mg daily, hydrocodone/APAP 5/325 one tablet every 6 hours and one to two tablets every 6 hours. She is on tramadol 50 mg every 6 hours, Seroquel 25 mg 3 times a day, lorazepam 0.5 mg every 4 hours, lactulose 20 mL q.i.d. p.r.n. for constipation, calcium carbonate 500 mg 4 times a day, Flonase 2 sprays to each nostril once a day. [place] nasal spray one spray to each nostril every 2 hours, Lidoderm patches topically once a day, vitamin B1 for thiamine 100 mg twice a day, folic acid 1 mg once a day, multivitamin once a day. PHYSICAL EXAMINATION: GENERAL: On examining her, she was sitting comfortably in her chair, in no apparent distress. She was pale, somewhat cachectic, but no jaundice, cyanosis or thyromegaly. No jugular venous distension. No limb edema. VITAL SIGNS: Her heart rate was 108, blood pressure was 105/51, temperature was 98.9, respiratory rate was 14 and oxygen saturation was 90%. HEAD, EYES, EARS, NOSE AND THROAT: Showed normocephalic, atraumatic. NECK: Supple. HEART: Showed normal first and second heart sounds. No gallop, rub or murmur. CHEST: Clear to auscultation. No crepitation or rhonchi. ABDOMEN: Distended, soft, nontender. No guarding or rigidity. No organomegaly. All hernial orifice intact. Bowel sounds normal. NEUROLOGIC: She was awake, alert, but somewhat confused. All her cranial nerves intact. EXTREMITIES: She moves her extremities without difficulty. She ambulates without assistance or assistive devices. LABORATORY DATA: Showed serum sodium of 141, potassium 4.3, chloride 103, bicarbonate 27, anion gap of 11, BUN 15, creatinine 0.9, estimated GFR was 63 mL per minute. Her glucose was 85, calcium was 8.9, magnesium was 1.9. Her serum iron was 53. TIBC was . Her TSH was 2.251, total T4 was 4.9, total T3 was 107, her serum triglyceride 159, total cholesterol 219. The LDL cholesterol was 110, VLDL was 51, HDL cholesterol was 78 and ratio was 2. Her prothrombin time was 9.3, INR of 0.9, aPTT was 22. Urinalysis was essentially unremarkable and toxic screen was positive for opiates, negative for all other drugs. IMPRESSION AND PLAN: In summary, this is a 72-year-old female patient, who was transferred from [facility] on account of making statement regarding suicidal ideation with no plans, labile. Apparently lost her recently about 5 weeks ago. She is depressed. All this in a background of major neurocognitive disorder, alcohol abuse and adjustment disorder. She apparently is known to have alcoholism and episode of delirium as well as compression fracture. From a medical point of view the patient seems to be medically stable. I would currently continue with all these medications. She has sinus tachycardia. Her thyroid function is normal. She is mildly anemic. I will await the result of vitamin B12, probably check UTI for urinary tract infection if she has he spiked her temperature. Thank you, Dr. Bunn, for allowing me to participate in the care of this patient. TEO FINN MD DR: SHALOM/mauro JOB#: [id number] / [id number]
[2017-09-22] MEDS: traMADol 50 MG TABLET PO PRN ×2 (15:37→22:41)
[2017-09-22 17:02] VITALS: BP 96/68
[2017-09-22] MEDS: QUEtiapine 50 MG TABLET. PO SCH (19:18)
[2017-09-22] MEDS: PATCH REMOVAL. MC SCH (19:19)
[2017-09-22] MEDS: LORazepam 0.5 MG TABLET PO PRN (19:21)
--- NOTE | 2017-09-22 22:15 | PDOC ---
Exam Note: Brandon Note: Please also refer to the separate dictated note~for this date of service dictated separately.~Patient seen individually. Discussed the patient with Nursing staff reviewed the chart.~Reviewed interim history and current functioning. Reviewed vital signs,~Labs/ Radiology~and current medications noted below. Continue current treatment with the changes noted in the dictated addendum note Assessment: Vital Signs: Vital Signs Date Time Temp Pulse Resp B/P (MAP) Pulse Ox O2 Delivery O2 Flow Rate FiO2 09/22/17 18:57 20 98 Room Air 09/22/17 17:02 98.0 105 96/68 (77) I&O Intake and Output 09/22/17 07:00 Intake Total 1500 ml Balance 1500 ml Intake Oral 1500 ml Current Medications: Meds: Current Medications Lorazepam (Ativan) 2 mg 1X ONCE IV Last administered on 09/20/17at 20:00; Start 09/20/17 at 20:00; Stop 09/20/17 at 20:01; Status DC Oxycodone/ Acetaminophen (Percocet 7.5/ 325) 1 tab STK-MED ONCE .ROUTE ; Start 09/20/17 at 19:44; Stop 09/20/17 at 19:45; Status DC Oxycodone/ Acetaminophen (Percocet 7.5/ 325) 2 tab 1X ONCE PO Last administered on 09/20/17at 19:45; Start 09/20/17 at 20:00; Stop 09/20/17 at 20:01 ; Status DC Lactated Ringer's 1,000 ml @ 1,000 mls/hr 1X ONCE IV ; Start 09/20/17 at 21:00 ; Stop 09/20/17 at 21:59; Status DC Acetaminophen (Tylenol) 650 mg PRN Q6HRS PRN PO PAIN / TEMP; Start 09/20/17 at 22:00 Multi-Ingredient Ointment (Analgesic [place]) 1 kenneth PRN QID PRN TP MUSCLE PAIN; Start 09/20/17 at 22:00 Al Hydroxide/Mg Hydroxide (Mylanta Plus Xs) 15 ml PRN AFTMEALHC PRN PO DYSPEPSIA Last administered on 09/21/17at 01:24; Start 09/20/17 at 22:00 Magnesium Hydroxide (Milk Of Magnesia) 2,400 mg PRN QHS PRN PO CONSTIPATION; Start 09/20/17 at 22:00 Lorazepam (Ativan) 0.5 mg PRN Q4HRS PRN PO ANXIETY / AGITATION Last administered on 09/22/17 19:21; Start 09/20/17 at 22:00 Quetiapine Fumarate (SEROquel) 25 mg TID PO Last administered on 09/21/17 14: 08; Start 09/20/17 at 22:30; Stop 09/21/17 at 18:38; Status DC Calcium Carbonate/ Glycine (Tums) 500 mg PRN QID PRN PO DYSPEPSIA; Start at 22:00 Diphenhydramine HCl (Benadryl) 25 mg PRN BID PRN PO ALLERGIES Last administered on 09/22/17 08:19; Start 09/20/17 at 22:00 Fluticasone Propionate (Flonase) 2 spray BID NS Last administered on 09/22/17 19:19; Start 09/21/17 at 09:00 Folic Acid (Folic Acid) 1 mg DAILY PO Last administered on 09/22/17 08:19; Start 09/21/17 at 09:00 Acetaminophen/ Hydrocodone Bitart (Lortab 5/325) 1 tab PRN Q6HRS PRN PO MODERATE PAIN Last administered on 09/22/17 10:45; Start 09/20/17 at 22:00 Acetaminophen/ Hydrocodone Bitart (Lortab 5/325) 2 tab PRN Q6HRS PRN PO SEVERE PAIN Last administered on 09/22/17 17:49; Start 09/20/17 at 22:00 Lidocaine (Lidoderm) 1 patch DAILY TP Last administered on 09/22/17 08:20; Start 09/21/17 at 09:00 Multivitamins/ Calcium (Thera-M Plus) 1 tab DAILY PO Last administered on 08:19; Start 09/21/17 at 09:00 Sodium Chloride (Saline Mist Nasal) 2 kenneth PRN Q2HR PRN NS Nasal Congestion Last administered on 09/21/17 20:49; Start 09/20/17 at 22:00 Tramadol HCl (Ultram) 50 mg PRN Q6HRS PRN PO PAIN Last administered on 15:37; Start 09/20/17 at 22:00 Lactulose (Lactulose) 10 gm PRN QID PRN PO CONSTIPATION; Start 09/20/17 at 22: 15 Cetirizine HCl (ZyrTEC) 10 mg DAILY PO Last administered on 09/22/17at 08:19; Start 09/21/17 at 09:00 Non-Formulary Medication (Menthol (Biofreeze)) 1 kenneth PRN TID PRN TP MUSCLE PAIN ; Start 09/20/17 at 22:00; Status UNV Thiamine HCl (Vitamin B-1) 100 mg BID PO Last administered on 09/22/17 19:18; Start 09/21/17 at 09:00 Miscellaneous (Lidoderm Patch Removal) 1 ea QHS MC Last administered on 19:19; Start 09/20/17 at 21:00 Quetiapine Fumarate (SEROquel) 25 mg BID92 PO Last administered on 09/22/17at 13 :08; Start 09/22/17 at 09:00 Quetiapine Fumarate (SEROquel) 50 mg QHS PO Last administered on 09/22/17at 19: 18; Start 09/21/17 at 21:00 Active Scripts Active Reported Claritin (Loratadine) 10 Mg Tablet 10 Mg PO DAILY [place] (Sodium Chloride) 44 Ml [place] 1 [place] NS PRN Q2HR PRN Fluticasone Propionate Nasal [place] (Fluticasone Propionate) 16 Gm [place].susp 2 [place] NS BID Benadryl (Diphenhydramine Hcl) 25 Mg Capsule 25 Mg PO PRN BID PRN Ultram (Tramadol HCl) 50 Mg Tablet 50 Mg PO PRN Q6HRS PRN Ativan (Lorazepam) 0.5 Mg Tablet 0.5 Mg PO PRN Q4HRS PRN Seroquel (Quetiapine Fumarate) 25 Mg Tablet 25 Mg PO TID Calcium Carbonate 500 Mg Tablet 500 Mg PO PRN QID PRN Biofreeze (Menthol) 118 Ml Gel..ml. 1 Kenneth TP PRN TID PRN Lactulose 10 Gm/15 Ml Solution 10 Gm PO PRN QID PRN Vitamin B-1 (Thiamine Mononitrate) 100 Mg Tablet 100 Mg PO BID Thera M Plus Tablet (Multivits,Ca,Minerals/Iron/FA) 1 Each Tablet 1 Tab PO DAILY Lidocaine 1 Each Adh..patch 1 Patch TP DAILY [place] 5-325 Tablet (Hydrocodone Bit/Acetaminophen) 1 Each Tablet 2 Tab PO PRN Q6HRS PRN [place] 5-325 Tablet (Hydrocodone Bit/Acetaminophen) 1 Each Tablet 1 Tab PO PRN Q6HRS PRN Folic Acid 1 Mg Tablet 1 Mg PO DAILY I have reviewed the current psychotropics carefully including drug interactions. Risk benefit ratio favors no change other than as noted in my dictated progress note. Diagnosis: Problems: (1) Depression (2) Alcohol-induced persisting dementia (3) Alcohol dependence (4) Anxiety disorder (5) Impulse control disorder (6) Major depressive disorder, recurrent episode DAVID SWAN MD Sep 22, 2017 22:15
[2017-09-23] MEDS: HYDROcodone/APAP 5/325MG 1 TAB TABLET PO PRN ×2 (03:31→09:47)
[2017-09-23 06:13] VITALS: BP 117/74
[2017-09-23] MEDS: FOLIC ACID 1 MG TABLET PO SCH (09:45)
[2017-09-23] MEDS: MULTIVITAMIN with MINERAL TABLET. PO SCH (09:45)
[2017-09-23] MEDS: CETIRIZINE HCL 10 MG TABLET PO SCH (09:45)
[2017-09-23] MEDS: THIAMINE 100 MG TABLET. PO SCH ×2 (09:45→19:51)
[2017-09-23] MEDS: FLUTICASONE 50MCG/NASAL SPRAY 16GM BOTTLE. NS SCH ×2 (09:45→19:51)
[2017-09-23] MEDS: LIDOCAINE (700MG/PATCH) PATCH. TP SCH (09:46)
[2017-09-23] MEDS: QUEtiapine 25 MG TABLET. PO SCH ×2 (09:46→14:01)
[2017-09-23] MEDS: ACETAMINOPHEN 325 MG TABLET PO PRN (14:01)
[2017-09-23 15:55] VITALS: BP 91/57
[2017-09-23] MEDS: QUEtiapine 50 MG TABLET. PO SCH (19:51)
[2017-09-23] MEDS: PATCH REMOVAL. MC SCH (21:00)
--- NOTE | 2017-09-23 21:13 | PDOC ---
Exam Note: Brandon Note: Please also refer to the separate dictated note~for this date of service dictated separately.~Patient seen individually. Discussed the patient with Nursing staff reviewed the chart.~Reviewed interim history and current functioning. Reviewed vital signs,~Labs/ Radiology~and current medications noted below. Continue current treatment with the changes noted in the dictated addendum note Assessment: Vital Signs: Vital Signs Date Time Temp Pulse Resp B/P (MAP) Pulse Ox O2 Delivery O2 Flow Rate FiO2 09/23/17 15:55 97.7 99 16 91/57 (68) 100 09/23/17 04:35 Room Air I&O Intake and Output 09/23/17 07:00 Intake Total 1440 ml Balance 1440 ml Intake Oral 1440 ml # Voids 2 Current Medications: Meds: Current Medications Lorazepam (Ativan) 2 mg 1X ONCE IV Last administered on 09/20/17at 20:00; Start 09/20/17 at 20:00; Stop 09/20/17 at 20:01; Status DC Oxycodone/ Acetaminophen (Percocet 7.5/ 325) 1 tab STK-MED ONCE .ROUTE ; Start 09/20/17 at 19:44; Stop 09/20/17 at 19:45; Status DC Oxycodone/ Acetaminophen (Percocet 7.5/ 325) 2 tab 1X ONCE PO Last administered on 09/20/17at 19:45; Start 09/20/17 at 20:00; Stop 09/20/17 at 20:01 ; Status DC Lactated Ringer's 1,000 ml @ 1,000 mls/hr 1X ONCE IV ; Start 09/20/17 at 21:00 ; Stop 09/20/17 at 21:59; Status DC Acetaminophen (Tylenol) 650 mg PRN Q6HRS PRN PO PAIN / TEMP Last administered on 09/23/17at 14:01; Start 09/20/17 at 22:00 Multi-Ingredient Ointment (Analgesic [place]) 1 kenneth PRN QID PRN TP MUSCLE PAIN; Start 09/20/17 at 22:00 Al Hydroxide/Mg Hydroxide (Mylanta Plus Xs) 15 ml PRN AFTMEALHC PRN PO DYSPEPSIA Last administered on 09/21/17at 01:24; Start 09/20/17 at 22:00 Magnesium Hydroxide (Milk Of Magnesia) 2,400 mg PRN QHS PRN PO CONSTIPATION; Start 09/20/17 at 22:00 Lorazepam (Ativan) 0.5 mg PRN Q4HRS PRN PO ANXIETY / AGITATION Last administered on 09/22/17 19:21; Start 09/20/17 at 22:00 Quetiapine Fumarate (SEROquel) 25 mg TID PO Last administered on 09/21/17 14: 08; Start 09/20/17 at 22:30; Stop 09/21/17 at 18:38; Status DC Calcium Carbonate/ Glycine (Tums) 500 mg PRN QID PRN PO DYSPEPSIA; Start at 22:00 Diphenhydramine HCl (Benadryl) 25 mg PRN BID PRN PO ALLERGIES Last administered on 09/22/17 08:19; Start 09/20/17 at 22:00 Fluticasone Propionate (Flonase) 2 spray BID NS Last administered on 09/23/17 19:51; Start 09/21/17 at 09:00 Folic Acid (Folic Acid) 1 mg DAILY PO Last administered on 09/23/17 09:45; Start 09/21/17 at 09:00 Acetaminophen/ Hydrocodone Bitart (Lortab 5/325) 1 tab PRN Q6HRS PRN PO MODERATE PAIN Last administered on 09/23/17 09:47; Start 09/20/17 at 22:00 Acetaminophen/ Hydrocodone Bitart (Lortab 5/325) 2 tab PRN Q6HRS PRN PO SEVERE PAIN Last administered on 09/23/17 03:31; Start 09/20/17 at 22:00 Lidocaine (Lidoderm) 1 patch DAILY TP Last administered on 09/23/17 09:46; Start 09/21/17 at 09:00 Multivitamins/ Calcium (Thera-M Plus) 1 tab DAILY PO Last administered on 09:45; Start 09/21/17 at 09:00 Sodium Chloride (Saline Mist Nasal) 2 kenneth PRN Q2HR PRN NS Nasal Congestion Last administered on 09/21/17 20:49; Start 09/20/17 at 22:00 Tramadol HCl (Ultram) 50 mg PRN Q6HRS PRN PO PAIN Last administered on at 22:41; Start 09/20/17 at 22:00 Lactulose (Lactulose) 10 gm PRN QID PRN PO CONSTIPATION; Start 09/20/17 at 22: 15 Cetirizine HCl (ZyrTEC) 10 mg DAILY PO Last administered on 09/23/17at 09:45; Start 09/21/17 at 09:00 Non-Formulary Medication (Menthol (Biofreeze)) 1 kenneth PRN TID PRN TP MUSCLE PAIN ; Start 09/20/17 at 22:00; Status UNV Thiamine HCl (Vitamin B-1) 100 mg BID PO Last administered on 09/23/17at 19:51; Start 09/21/17 at 09:00 Miscellaneous (Lidoderm Patch Removal) 1 ea QHS MC Last administered on 19:19; Start 09/20/17 at 21:00 Quetiapine Fumarate (SEROquel) 25 mg BID92 PO Last administered on 09/23/17at 14 :01; Start 09/22/17 at 09:00 Quetiapine Fumarate (SEROquel) 50 mg QHS PO Last administered on 09/23/17at 19: 51; Start 09/21/17 at 21:00 Sertraline HCl (Zoloft) 25 mg DAILY PO ; Start 09/24/17 at 09:00; Stop 09/27/17 at 08:59 Sertraline HCl (Zoloft) 50 mg DAILY PO ; Start 09/27/17 at 09:00 Active Scripts Active Reported Claritin (Loratadine) 10 Mg Tablet 10 Mg PO DAILY [place] (Sodium Chloride) 44 Ml [place] 1 [place] NS PRN Q2HR PRN Fluticasone Propionate Nasal [place] (Fluticasone Propionate) 16 Gm [place].susp 2 [place] NS BID Benadryl (Diphenhydramine Hcl) 25 Mg Capsule 25 Mg PO PRN BID PRN Ultram (Tramadol HCl) 50 Mg Tablet 50 Mg PO PRN Q6HRS PRN Ativan (Lorazepam) 0.5 Mg Tablet 0.5 Mg PO PRN Q4HRS PRN Seroquel (Quetiapine Fumarate) 25 Mg Tablet 25 Mg PO TID Calcium Carbonate 500 Mg Tablet 500 Mg PO PRN QID PRN Biofreeze (Menthol) 118 Ml Gel..ml. 1 Kenneth TP PRN TID PRN Lactulose 10 Gm/15 Ml Solution 10 Gm PO PRN QID PRN Vitamin B-1 (Thiamine Mononitrate) 100 Mg Tablet 100 Mg PO BID Thera M Plus Tablet (Multivits,Ca,Minerals/Iron/FA) 1 Each Tablet 1 Tab PO DAILY Lidocaine 1 Each Adh..patch 1 Patch TP DAILY [place] 5-325 Tablet (Hydrocodone Bit/Acetaminophen) 1 Each Tablet 2 Tab PO PRN Q6HRS PRN [place] 5-325 Tablet (Hydrocodone Bit/Acetaminophen) 1 Each Tablet 1 Tab PO PRN Q6HRS PRN Folic Acid 1 Mg Tablet 1 Mg PO DAILY I have reviewed the current psychotropics carefully including drug interactions. Risk benefit ratio favors no change other than as noted in my dictated progress note. Diagnosis: Problems: (1) Depression (2) Alcohol-induced persisting dementia (3) Alcohol dependence (4) Anxiety disorder (5) Impulse control disorder (6) Major depressive disorder, recurrent episode DAVID SWAN MD Sep 23, 2017 21:13
[2017-09-24] MEDS: ACETAMINOPHEN 325 MG TABLET PO PRN ×2 (00:06→08:32)
[2017-09-24] MEDS: HYDROcodone/APAP 5/325MG 1 TAB TABLET PO PRN ×2 (01:50→10:07)
--- NOTE | 2017-09-24 04:38 | PN ---
DATE: 09/22/2017 PSYCHIATRIC PROGRESS NOTE This late entry 09/22/2017 covers elements not covered in my initial note 09/22/2017. SUBJECTIVE: I met with the patient in the evening of 09/22/2017. The patient has been irritable, intermittently agitated, exit seeking, cooperative with medications, forgetful, manipulative, strong-willed, struggles to control everything per nursing report. REVIEW OF SYSTEMS: I sat with the patient at some length individually. She talked about the loss of her a few weeks back and admitted to being depressed with fleeting suicidal ideation. Denies active suicidal ideation. No CV, , pulmonary, eye system symptoms on review. MENTAL STATUS EXAM: Oriented to herself and situation. Speech has some latency, coherent. Abstraction fair, computation impaired, language function intact, attention span short. Mood and affect remain somewhat labile. LABORATORY DATA: Reviewed. 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 Rest unchanged. PLAN: Continue psychotropics mentioned in my initial note including Seroquel, which was increased. We will also go ahead and add Lexapro 5 mg a day. Adjust further as clinically indicated. DAVID SWAN MD DR: KATHERINE/mauro JOB#: [id number] / [id number]
[2017-09-24] MEDS: FLUTICASONE 50MCG/NASAL SPRAY 16GM BOTTLE. NS SCH ×2 (08:31→19:40)
[2017-09-24] MEDS: MULTIVITAMIN with MINERAL TABLET. PO SCH (08:31)
[2017-09-24] MEDS: FOLIC ACID 1 MG TABLET PO SCH (08:31)
[2017-09-24] MEDS: CETIRIZINE HCL 10 MG TABLET PO SCH (08:31)
[2017-09-24] MEDS: THIAMINE 100 MG TABLET. PO SCH ×2 (08:31→19:40)
[2017-09-24] MEDS: LIDOCAINE (700MG/PATCH) PATCH. TP SCH ×2 (08:31→08:45)
[2017-09-24] MEDS: QUEtiapine 25 MG TABLET. PO SCH ×2 (08:31→13:21)
[2017-09-24] MEDS: SERTRALINE 25 MG TABLET. PO SCH (08:32)
[2017-09-24 15:47] VITALS: BP 97/58
[2017-09-24] MEDS: traMADol 50 MG TABLET PO PRN (17:13)
[2017-09-24] MEDS: QUEtiapine 50 MG TABLET. PO SCH (19:40)
[2017-09-24] MEDS: PATCH REMOVAL. MC SCH (19:41)
[2017-09-24] MEDS: GABAPENTIN 100 MG CAPSULE. PO SCH (19:42)
[2017-09-24] MEDS: CHOLECALCIFEROL (VITAMIN D3) 50,000 UNIT CAPSULE PO SCH (19:42)
--- NOTE | 2017-09-24 21:00 | PDOC ---
Exam Note: Brandon Note: Please also refer to the separate dictated note~for this date of service dictated separately.~Patient seen individually. Discussed the patient with Nursing staff reviewed the chart.~Reviewed interim history and current functioning. Reviewed vital signs,~Labs/ Radiology~and current medications noted below. Continue current treatment with the changes noted in the dictated addendum note Assessment: Vital Signs: Vital Signs Date Time Temp Pulse Resp B/P (MAP) Pulse Ox O2 Delivery O2 Flow Rate FiO2 09/24/17 15:47 97.0 101 16 97/58 (71) 98 09/24/17 02:50 Room Air I&O Intake and Output 09/24/17 07:00 Intake Total 840 ml Balance 840 ml Intake Oral 840 ml # Voids 2 # Bowel Movements 2 Current Medications: Meds: Current Medications Lorazepam (Ativan) 2 mg 1X ONCE IV Last administered on 09/20/17at 20:00; Start 09/20/17 at 20:00; Stop 09/20/17 at 20:01; Status DC Oxycodone/ Acetaminophen (Percocet 7.5/ 325) 1 tab STK-MED ONCE .ROUTE ; Start 09/20/17 at 19:44; Stop 09/20/17 at 19:45; Status DC Oxycodone/ Acetaminophen (Percocet 7.5/ 325) 2 tab 1X ONCE PO Last administered on 09/20/17at 19:45; Start 09/20/17 at 20:00; Stop 09/20/17 at 20:01 ; Status DC Lactated Ringer's 1,000 ml @ 1,000 mls/hr 1X ONCE IV ; Start 09/20/17 at 21:00 ; Stop 09/20/17 at 21:59; Status DC Acetaminophen (Tylenol) 650 mg PRN Q6HRS PRN PO PAIN / TEMP Last administered on 09/24/17at 08:32; Start 09/20/17 at 22:00 Multi-Ingredient Ointment (Analgesic [place]) 1 kenneth PRN QID PRN TP MUSCLE PAIN; Start 09/20/17 at 22:00 Al Hydroxide/Mg Hydroxide (Mylanta Plus Xs) 15 ml PRN AFTMEALHC PRN PO DYSPEPSIA Last administered on 09/21/17at 01:24; Start 09/20/17 at 22:00 Magnesium Hydroxide (Milk Of Magnesia) 2,400 mg PRN QHS PRN PO CONSTIPATION; Start 09/20/17 at 22:00 Lorazepam (Ativan) 0.5 mg PRN Q4HRS PRN PO ANXIETY / AGITATION Last administered on 09/22/17 19:21; Start 09/20/17 at 22:00 Quetiapine Fumarate (SEROquel) 25 mg TID PO Last administered on 09/21/17 14: 08; Start 09/20/17 at 22:30; Stop 09/21/17 at 18:38; Status DC Calcium Carbonate/ Glycine (Tums) 500 mg PRN QID PRN PO DYSPEPSIA; Start at 22:00 Diphenhydramine HCl (Benadryl) 25 mg PRN BID PRN PO ALLERGIES Last administered on 09/22/17 08:19; Start 09/20/17 at 22:00 Fluticasone Propionate (Flonase) 2 spray BID NS Last administered on 09/24/17 19:40; Start 09/21/17 at 09:00 Folic Acid (Folic Acid) 1 mg DAILY PO Last administered on 09/24/17 08:31; Start 09/21/17 at 09:00 Acetaminophen/ Hydrocodone Bitart (Lortab 5/325) 1 tab PRN Q6HRS PRN PO MODERATE PAIN Last administered on 09/24/17 10:07; Start 09/20/17 at 22:00 Acetaminophen/ Hydrocodone Bitart (Lortab 5/325) 2 tab PRN Q6HRS PRN PO SEVERE PAIN Last administered on 09/24/17 01:50; Start 09/20/17 at 22:00 Lidocaine (Lidoderm) 1 patch DAILY TP Last administered on 09/23/17 09:46; Start 09/21/17 at 09:00 Multivitamins/ Calcium (Thera-M Plus) 1 tab DAILY PO Last administered on 08:31; Start 09/21/17 at 09:00 Sodium Chloride (Saline Mist Nasal) 2 kenneth PRN Q2HR PRN NS Nasal Congestion Last administered on 09/21/17 20:49; Start 09/20/17 at 22:00 Tramadol HCl (Ultram) 50 mg PRN Q6HRS PRN PO PAIN Last administered on 17:13; Start 09/20/17 at 22:00 Lactulose (Lactulose) 10 gm PRN QID PRN PO CONSTIPATION; Start 09/20/17 at 22: 15 Cetirizine HCl (ZyrTEC) 10 mg DAILY PO Last administered on 09/24/17at 08:31; Start 09/21/17 at 09:00 Non-Formulary Medication (Menthol (Biofreeze)) 1 kenneth PRN TID PRN TP MUSCLE PAIN ; Start 09/20/17 at 22:00; Status UNV Thiamine HCl (Vitamin B-1) 100 mg BID PO Last administered on 09/24/17 19:40; Start 09/21/17 at 09:00 Miscellaneous (Lidoderm Patch Removal) 1 ea QHS MC Last administered on 19:41; Start 09/20/17 at 21:00 Quetiapine Fumarate (SEROquel) 25 mg BID92 PO Last administered on 09/24/17at 13 :21; Start 09/22/17 at 09:00 Quetiapine Fumarate (SEROquel) 50 mg QHS PO Last administered on 09/24/17at 19: 40; Start 09/21/17 at 21:00 Sertraline HCl (Zoloft) 25 mg DAILY PO Last administered on 09/24/17at 08:32; Start 09/24/17 at 09:00; Stop 09/27/17 at 08:59 Sertraline HCl (Zoloft) 50 mg DAILY PO ; Start 09/27/17 at 09:00 Vitamin D (Vitamin D3) 50,000 unit WEEKLY PO Last administered on 09/24/17at 19: 42; Start 09/24/17 at 20:00 Gabapentin (Neurontin) 100 mg TID PO Last administered on 09/24/17 19:42; Start 09/24/17 at 21:00 Active Scripts Active Reported Claritin (Loratadine) 10 Mg Tablet 10 Mg PO DAILY [place] (Sodium Chloride) 44 Ml [place] 1 [place] NS PRN Q2HR PRN Fluticasone Propionate Nasal [place] (Fluticasone Propionate) 16 Gm [place].susp 2 [place] NS BID Benadryl (Diphenhydramine Hcl) 25 Mg Capsule 25 Mg PO PRN BID PRN Ultram (Tramadol HCl) 50 Mg Tablet 50 Mg PO PRN Q6HRS PRN Ativan (Lorazepam) 0.5 Mg Tablet 0.5 Mg PO PRN Q4HRS PRN Seroquel (Quetiapine Fumarate) 25 Mg Tablet 25 Mg PO TID Calcium Carbonate 500 Mg Tablet 500 Mg PO PRN QID PRN Biofreeze (Menthol) 118 Ml Gel..ml. 1 [place] TP PRN TID PRN Lactulose 10 Gm/15 Ml Solution 10 Gm PO PRN QID PRN Vitamin B-1 (Thiamine Mononitrate) 100 Mg Tablet 100 Mg PO BID Thera M Plus Tablet (Multivits,Ca,Minerals/Iron/FA) 1 Each Tablet 1 Tab PO DAILY Lidocaine 1 Each Adh..patch 1 Patch TP DAILY [place] 5-325 Tablet (Hydrocodone Bit/Acetaminophen) 1 Each Tablet 2 Tab PO PRN Q6HRS PRN [place] 5-325 Tablet (Hydrocodone Bit/Acetaminophen) 1 Each Tablet 1 Tab PO PRN Q6HRS PRN Folic Acid 1 Mg Tablet 1 Mg PO DAILY I have reviewed the current psychotropics carefully including drug interactions. Risk benefit ratio favors no change other than as noted in my dictated progress note. Diagnosis: Problems: (1) Depression (2) Alcohol-induced persisting dementia (3) Alcohol dependence (4) Anxiety disorder (5) Impulse control disorder (6) Major depressive disorder, recurrent episode DAVID SWAN MD Sep 24, 2017 21:00
--- NOTE | 2017-09-24 22:59 | PN ---
DATE: 09/24/2017 This is a late entry 09/23/2016, covers elements not covered in my initial note 09/23/2017. Met with the patient in the evening of 09/23/2017. Overall, the patient remains somewhat depressed, withdrawn, has short-term memory deficits. She minimizes problems in her home. Reportedly, home was in significant disrepair. She is unable to return home, still depressed, misses her , processed at some length with her individually. No CV, , pulmonary, eye system symptoms on review. MENTAL STATUS EXAM: Oriented to herself and situation. Speech coherent, abstraction fair, computation impaired, language function intact. Mood and affect still dysphoric, but improved. 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 PLAN: Start Zoloft 25 mg a day. Rest continue unchanged from initial note. MAN Dannielle SWAN MD DR: KATHERINE/mauro JOB#: [id number] / [id number]
[2017-09-25 06:19] VITALS: BP 122/65
[2017-09-25] MEDS: GABAPENTIN 100 MG CAPSULE. PO SCH ×3 (08:30→19:52)
[2017-09-25] MEDS: SERTRALINE 25 MG TABLET. PO SCH (08:30)
[2017-09-25] MEDS: FOLIC ACID 1 MG TABLET PO SCH (08:30)
[2017-09-25] MEDS: QUEtiapine 25 MG TABLET. PO SCH ×2 (08:30→13:19)
[2017-09-25] MEDS: THIAMINE 100 MG TABLET. PO SCH ×2 (08:30→19:52)
[2017-09-25] MEDS: FLUTICASONE 50MCG/NASAL SPRAY 16GM BOTTLE. NS SCH ×2 (08:36→19:55)
[2017-09-25] MEDS: MULTIVITAMIN with MINERAL TABLET. PO SCH (08:36)
[2017-09-25] MEDS: CETIRIZINE HCL 10 MG TABLET PO SCH (08:36)
[2017-09-25] MEDS: HYDROcodone/APAP 5/325MG 1 TAB TABLET PO PRN ×2 (08:38→19:55)
[2017-09-25] MEDS: LIDOCAINE (700MG/PATCH) PATCH. TP SCH (08:47)
[2017-09-25] MEDS: ACETAMINOPHEN 325 MG TABLET PO PRN (13:09)
[2017-09-25] MEDS: traMADol 50 MG TABLET PO PRN (15:41)
[2017-09-25 16:27] VITALS: BP 110/66
[2017-09-25] MEDS: QUEtiapine 50 MG TABLET. PO SCH (19:52)
[2017-09-25] MEDS: PATCH REMOVAL. MC SCH (21:00)
--- NOTE | 2017-09-25 21:21 | PDOC ---
Exam Note: Brandon Note: Please also refer to the separate dictated note~for this date of service dictated separately.~Patient seen individually. Discussed the patient with Nursing staff reviewed the chart.~Reviewed interim history and current functioning. Reviewed vital signs,~Labs/ Radiology~and current medications noted below. Continue current treatment with the changes noted in the dictated addendum note Assessment: Vital Signs: Vital Signs Date Time Temp Pulse Resp B/P (MAP) Pulse Ox O2 Delivery O2 Flow Rate FiO2 09/25/17 19:55 Room Air 09/25/17 16:52 96 09/25/17 16:27 97.6 96 20 110/66 (81) I&O Intake and Output 09/25/17 07:00 Intake Total 1780 ml Balance 1780 ml Intake Oral 1780 ml # Bowel Movements 1 Current Medications: Meds: Current Medications Lorazepam (Ativan) 2 mg 1X ONCE IV Last administered on 09/20/17at 20:00; Start 09/20/17 at 20:00; Stop 09/20/17 at 20:01; Status DC Oxycodone/ Acetaminophen (Percocet 7.5/ 325) 1 tab STK-MED ONCE .ROUTE ; Start 09/20/17 at 19:44; Stop 09/20/17 at 19:45; Status DC Oxycodone/ Acetaminophen (Percocet 7.5/ 325) 2 tab 1X ONCE PO Last administered on 09/20/17at 19:45; Start 09/20/17 at 20:00; Stop 09/20/17 at 20:01 ; Status DC Lactated Ringer's 1,000 ml @ 1,000 mls/hr 1X ONCE IV ; Start 09/20/17 at 21:00 ; Stop 09/20/17 at 21:59; Status DC Acetaminophen (Tylenol) 650 mg PRN Q6HRS PRN PO PAIN / TEMP Last administered on 09/25/17at 13:09; Start 09/20/17 at 22:00 Multi-Ingredient Ointment (Analgesic [place]) 1 kenneth PRN QID PRN TP MUSCLE PAIN; Start 09/20/17 at 22:00 Al Hydroxide/Mg Hydroxide (Mylanta Plus Xs) 15 ml PRN AFTMEALHC PRN PO DYSPEPSIA Last administered on 09/21/17at 01:24; Start 09/20/17 at 22:00 Magnesium Hydroxide (Milk Of Magnesia) 2,400 mg PRN QHS PRN PO CONSTIPATION; Start 09/20/17 at 22:00 Lorazepam (Ativan) 0.5 mg PRN Q4HRS PRN PO ANXIETY / AGITATION Last administered on 09/22/17 19:21; Start 09/20/17 at 22:00 Quetiapine Fumarate (SEROquel) 25 mg TID PO Last administered on 09/21/17 14: 08; Start 09/20/17 at 22:30; Stop 09/21/17 at 18:38; Status DC Calcium Carbonate/ Glycine (Tums) 500 mg PRN QID PRN PO DYSPEPSIA; Start at 22:00 Diphenhydramine HCl (Benadryl) 25 mg PRN BID PRN PO ALLERGIES Last administered on 09/22/17 08:19; Start 09/20/17 at 22:00 Fluticasone Propionate (Flonase) 2 spray BID NS Last administered on 09/25/17 19:55; Start 09/21/17 at 09:00 Folic Acid (Folic Acid) 1 mg DAILY PO Last administered on 09/25/17 08:30; Start 09/21/17 at 09:00 Acetaminophen/ Hydrocodone Bitart (Lortab 5/325) 1 tab PRN Q6HRS PRN PO MODERATE PAIN Last administered on 09/25/17 19:55; Start 09/20/17 at 22:00 Acetaminophen/ Hydrocodone Bitart (Lortab 5/325) 2 tab PRN Q6HRS PRN PO SEVERE PAIN Last administered on 09/25/17 08:38; Start 09/20/17 at 22:00 Lidocaine (Lidoderm) 1 patch DAILY TP Last administered on 09/25/17 08:47; Start 09/21/17 at 09:00 Multivitamins/ Calcium (Thera-M Plus) 1 tab DAILY PO Last administered on 08:36; Start 09/21/17 at 09:00 Sodium Chloride (Saline Mist Nasal) 2 kenneth PRN Q2HR PRN NS Nasal Congestion Last administered on 09/21/17 20:49; Start 09/20/17 at 22:00 Tramadol HCl (Ultram) 50 mg PRN Q6HRS PRN PO PAIN Last administered on 15:41; Start 09/20/17 at 22:00 Lactulose (Lactulose) 10 gm PRN QID PRN PO CONSTIPATION; Start 09/20/17 at 22: 15 Cetirizine HCl (ZyrTEC) 10 mg DAILY PO Last administered on 09/25/17at 08:36; Start 09/21/17 at 09:00 Non-Formulary Medication (Menthol (Biofreeze)) 1 kenneth PRN TID PRN TP MUSCLE PAIN ; Start 09/20/17 at 22:00; Status UNV Thiamine HCl (Vitamin B-1) 100 mg BID PO Last administered on 09/25/17 19:52; Start 09/21/17 at 09:00 Miscellaneous (Lidoderm Patch Removal) 1 ea QHS MC Last administered on 19:41; Start 09/20/17 at 21:00 Quetiapine Fumarate (SEROquel) 25 mg BID92 PO Last administered on 09/25/17 13 :19; Start 09/22/17 at 09:00 Quetiapine Fumarate (SEROquel) 50 mg QHS PO Last administered on 09/25/17 19: 52; Start 09/21/17 at 21:00 Sertraline HCl (Zoloft) 25 mg DAILY PO Last administered on 09/25/17at 08:30; Start 09/24/17 at 09:00; Stop 09/27/17 at 08:59 Sertraline HCl (Zoloft) 50 mg DAILY PO ; Start 09/27/17 at 09:00 Vitamin D (Vitamin D3) 50,000 unit WEEKLY PO Last administered on 09/24/17at 19: 42; Start 09/24/17 at 20:00 Gabapentin (Neurontin) 100 mg TID PO Last administered on 09/25/17 19:52; Start 09/24/17 at 21:00 Buspirone HCl (Buspar) 5 mg BID@0900,1300 PO ; Start 09/26/17 at 09:00 Cyanocobalamin (Vitamin B-12) 1,000 mcg QMONTH IM ; Start 09/26/17 at 09:00 Active Scripts Active Reported Claritin (Loratadine) 10 Mg Tablet 10 Mg PO DAILY [place] (Sodium Chloride) 44 Ml [place] 1 [place] NS PRN Q2HR PRN Fluticasone Propionate Nasal [place] (Fluticasone Propionate) 16 Gm [place].susp 2 [place] NS BID Benadryl (Diphenhydramine Hcl) 25 Mg Capsule 25 Mg PO PRN BID PRN Ultram (Tramadol HCl) 50 Mg Tablet 50 Mg PO PRN Q6HRS PRN Ativan (Lorazepam) 0.5 Mg Tablet 0.5 Mg PO PRN Q4HRS PRN Seroquel (Quetiapine Fumarate) 25 Mg Tablet 25 Mg PO TID Calcium Carbonate 500 Mg Tablet 500 Mg PO PRN QID PRN Biofreeze (Menthol) 118 Ml Gel..ml. 1 [place] TP PRN TID PRN Lactulose 10 Gm/15 Ml Solution 10 Gm PO PRN QID PRN Vitamin B-1 (Thiamine Mononitrate) 100 Mg Tablet 100 Mg PO BID Thera M Plus Tablet (Multivits,Ca,Minerals/Iron/FA) 1 Each Tablet 1 Tab PO DAILY Lidocaine 1 Each Adh..patch 1 Patch TP DAILY [place] 5-325 Tablet (Hydrocodone Bit/Acetaminophen) 1 Each Tablet 2 Tab PO PRN Q6HRS PRN [place] 5-325 Tablet (Hydrocodone Bit/Acetaminophen) 1 Each Tablet 1 Tab PO PRN Q6HRS PRN Folic Acid 1 Mg Tablet 1 Mg PO DAILY I have reviewed the current psychotropics carefully including drug interactions. Risk benefit ratio favors no change other than as noted in my dictated progress note. Diagnosis: Problems: (1) Depression (2) Alcohol-induced persisting dementia (3) Alcohol dependence (4) Anxiety disorder (5) Impulse control disorder (6) Major depressive disorder, recurrent episode DAVID SWAN MD Sep 25, 2017 21:21
--- NOTE | 2017-09-25 21:47 | PN ---
DATE: 09/24/2017 PSYCHIATRIC PROGRESS NOTE This is late entry 09/24/2017 covers elements not covered in my initial note of 09/24/2017. SUBJECTIVE: Met with the patient in the evening of 09/24/2017. The patient slept 6-1/4 hours. She has short-term memory deficits, but nursing reported attention seeking, medication seeking, anxious, labile. REVIEW OF SYSTEMS: No CV, , pulmonary, eye system symptoms on review. Short term memory is impaired. She did not quite remember what we discussed during the individual psychotherapy sessions over the last 2 days, which at one point were fairly lengthy period. MENTAL STATUS EXAM: Insight shows improvement. Mood and affect remain somewhat anxious, dysphoric. Affect is dysphoric. No active suicidal or homicidal ideation. Attention span is short. Language function is intact. IMPRESSION: Major depressive disorder with psychotic features; major neurocognitive disorder, multifactorial possibly alcohol related with delusion, depression. Rest unchanged. PLAN: Continue psychotropics mentioned in my initial note, will increase the Zoloft to 50 mg a day on 09/27/2017. MAN Dannielle SWAN MD DR: KATHERINE/mauro JOB#: [id number] / [id number]
[2017-09-26 05:30] VITALS: BP 130/75
[2017-09-26] MEDS: HYDROcodone/APAP 5/325MG 1 TAB TABLET PO PRN ×3 (06:27→19:49)
[2017-09-26 08:00] LABS: ALBUMIN 2.9 g/dL (3.4-5.0); ALBUMIN/GLOBULIN RATIO 0.8 (1.0-1.7); BASO # 0.1 x10^3/uL (0.0-0.2); BASO % 1 % (0-3); CALCIUM 9.7 mg/dL (8.5-10.1); CREATININE 0.7 mg/dL (0.6-1.0); EOS # 0.3 x10^3/uL (0.0-0.7); EOS % 6 % (0-3); GFR 82.7; LYMPH # 1.4 x10^3/uL (1.0-4.8); LYMPH % 30 % (24-48); MAGNESIUM 1.9 mg/dL (1.8-2.4); MEAN CORPUSCULAR HEMOGLOBIN 32 pg (25-35); MEAN CORPUSCULAR HGB CONC 33 g/dL (31-37); MEAN CORPUSCULAR VOLUME 96 fL (79-100); MONO # 0.6 x10^3/uL (0.0-1.1); MONO % 14 % (0-9); NEUT # 2.3 x10^3uL (1.8-7.7); NEUT % 49 % (31-73); PLATELET COUNT 431 x10^3/uL (140-400); POTASSIUM 4.5 mmol/L (3.5-5.1); RED BLOOD COUNT 3.13 x10^6/uL (3.50-5.40); RED CELL DISTRIBUTION WIDTH 15.5 % (11.5-14.5); TOTAL BILIRUBIN 0.2 mg/dL (0.2-1.0); TOTAL PROTEIN 6.5 g/dL (6.4-8.2); WHITE BLOOD COUNT 4.6 x10^3/uL (4.0-11.0)
[2017-09-26] MEDS ORDERED: busPIRone 5 MG TABLET. PO SCH ×2 (09:00→13:00)
[2017-09-26] MEDS ORDERED: CYANOCOBALAMIN (VITAMIN B-12) 1,000 MCG/ML VIAL IM SCH (09:00)
[2017-09-26] MEDS: GABAPENTIN 100 MG CAPSULE. PO SCH ×3 (10:02→19:49)
[2017-09-26] MEDS: FOLIC ACID 1 MG TABLET PO SCH (10:02)
[2017-09-26] MEDS: THIAMINE 100 MG TABLET. PO SCH ×2 (10:02→19:49)
[2017-09-26] MEDS: CETIRIZINE HCL 10 MG TABLET PO SCH (10:02)
[2017-09-26] MEDS: MULTIVITAMIN with MINERAL TABLET. PO SCH (10:02)
[2017-09-26] MEDS: QUEtiapine 25 MG TABLET. PO SCH ×2 (10:03→12:46)
[2017-09-26] MEDS: SERTRALINE 25 MG TABLET. PO SCH (10:03)
[2017-09-26] MEDS: LIDOCAINE (700MG/PATCH) PATCH. TP SCH (10:03)
[2017-09-26] MEDS: FLUTICASONE 50MCG/NASAL SPRAY 16GM BOTTLE. NS SCH ×2 (10:05→19:48)
[2017-09-26 16:20] VITALS: BP 115/62
[2017-09-26] MEDS: busPIRone 5 MG TABLET. PO SCH (17:56)
[2017-09-26] MEDS: QUEtiapine 50 MG TABLET. PO SCH (19:49)
[2017-09-26] MEDS: PATCH REMOVAL. MC SCH (19:49)
--- NOTE | 2017-09-26 21:06 | PDOC ---
Exam Note: Brandon Note: Please also refer to the separate dictated note~for this date of service dictated separately.~Patient seen individually. Discussed the patient with Nursing staff reviewed the chart.~Reviewed interim history and current functioning. Reviewed vital signs,~Labs/ Radiology~and current medications noted below. Continue current treatment with the changes noted in the dictated addendum note Assessment: Vital Signs: Vital Signs Date Time Temp Pulse Resp B/P (MAP) Pulse Ox O2 Delivery O2 Flow Rate FiO2 09/26/17 19:49 Room Air 09/26/17 16:20 98.2 94 13 115/62 (79) 99 I&O Intake and Output 09/26/17 07:00 Intake Total 1440 ml Balance 1440 ml Intake Oral 1440 ml Labs: Laboratory Tests Test 09/26/17 06:47 White Blood Count 4.6 x10^3/uL (4.0-11.0) Red Blood Count 3.13 x10^6/uL (3.50-5.40) L Hemoglobin 10.0 g/dL (12.0-15.5) L Hematocrit 30.0 % (36.0-47.0) L Mean Corpuscular Volume 96 fL (79-100) Mean Corpuscular Hemoglobin 32 pg (25-35) Mean Corpuscular Hemoglobin Concent 33 g/dL (31-37) Red Cell Distribution Width 15.5 % (11.5-14.5) H Platelet Count 431 x10^3/uL (140-400) H Neutrophils (%) (Auto) 49 % (31-73) Lymphocytes (%) (Auto) 30 % (24-48) Monocytes (%) (Auto) 14 % (0-9) H Eosinophils (%) (Auto) 6 % (0-3) H Basophils (%) (Auto) 1 % (0-3) Neutrophils # (Auto) 2.3 x10^3uL (1.8-7.7) Lymphocytes # (Auto) 1.4 x10^3/uL (1.0-4.8) Monocytes # (Auto) 0.6 x10^3/uL (0.0-1.1) Eosinophils # (Auto) 0.3 x10^3/uL (0.0-0.7) Basophils # (Auto) 0.1 x10^3/uL (0.0-0.2) Sodium Level 142 mmol/L (136-145) Potassium Level 4.5 mmol/L (3.5-5.1) Chloride Level 105 mmol/L (98-107) Carbon Dioxide Level 30 mmol/L (21-32) Anion Gap 7 (6-14) Blood Urea Nitrogen 13 mg/dL (7-20) Creatinine 0.7 mg/dL (0.6-1.0) Estimated GFR (Cockcroft-Gault) 82.7 BUN/Creatinine Ratio 19 (6-20) Glucose Level 86 mg/dL (70-99) Calcium Level 9.7 mg/dL (8.5-10.1) Magnesium Level 1.9 mg/dL (1.8-2.4) Total Bilirubin 0.2 mg/dL (0.2-1.0) Aspartate Amino Transferase (AST) 15 U/L (15-37) Alanine Aminotransferase (ALT) 15 U/L (14-59) Alkaline Phosphatase 93 U/L (46-116) Total Protein 6.5 g/dL (6.4-8.2) Albumin 2.9 g/dL (3.4-5.0) L Albumin/Globulin Ratio 0.8 (1.0-1.7) L Current Medications: Meds: Current Medications Lorazepam (Ativan) 2 mg 1X ONCE IV Last administered on 09/20/17at 20:00; Start 09/20/17 at 20:00; Stop 09/20/17 at 20:01; Status DC Oxycodone/ Acetaminophen (Percocet 7.5/ 325) 1 tab STK-MED ONCE .ROUTE ; Start 09/20/17 at 19:44; Stop 09/20/17 at 19:45; Status DC Oxycodone/ Acetaminophen (Percocet 7.5/ 325) 2 tab 1X ONCE PO Last administered on 09/20/17at 19:45; Start 09/20/17 at 20:00; Stop 09/20/17 at 20:01 ; Status DC Lactated Ringer's 1,000 ml @ 1,000 mls/hr 1X ONCE IV ; Start 09/20/17 at 21:00 ; Stop 09/20/17 at 21:59; Status DC Acetaminophen (Tylenol) 650 mg PRN Q6HRS PRN PO PAIN / TEMP Last administered on 09/25/17 13:09; Start 09/20/17 at 22:00 Multi-Ingredient Ointment (Analgesic [place]) 1 kenneth PRN QID PRN TP MUSCLE PAIN; Start 09/20/17 at 22:00 Al Hydroxide/Mg Hydroxide (Mylanta Plus Xs) 15 ml PRN AFTMEALHC PRN PO DYSPEPSIA Last administered on 09/21/17 01:24; Start 09/20/17 at 22:00 Magnesium Hydroxide (Milk Of Magnesia) 2,400 mg PRN QHS PRN PO CONSTIPATION; Start 09/20/17 at 22:00 Lorazepam (Ativan) 0.5 mg PRN Q4HRS PRN PO ANXIETY / AGITATION Last administered on 09/22/17 19:21; Start 09/20/17 at 22:00 Quetiapine Fumarate (SEROquel) 25 mg TID PO Last administered on 09/21/17 14: 08; Start 09/20/17 at 22:30; Stop 09/21/17 at 18:38; Status DC Calcium Carbonate/ Glycine (Tums) 500 mg PRN QID PRN PO DYSPEPSIA; Start at 22:00 Diphenhydramine HCl (Benadryl) 25 mg PRN BID PRN PO ALLERGIES Last administered on 09/22/17 08:19; Start 09/20/17 at 22:00 Fluticasone Propionate (Flonase) 2 spray BID NS Last administered on 09/26/17 19:48; Start 09/21/17 at 09:00 Folic Acid (Folic Acid) 1 mg DAILY PO Last administered on 09/26/17at 10:02; Start 09/21/17 at 09:00 Acetaminophen/ Hydrocodone Bitart (Lortab 5/325) 1 tab PRN Q6HRS PRN PO MODERATE PAIN Last administered on 09/26/17 19:49; Start 09/20/17 at 22:00 Acetaminophen/ Hydrocodone Bitart (Lortab 5/325) 2 tab PRN Q6HRS PRN PO SEVERE PAIN Last administered on 09/25/17 08:38; Start 09/20/17 at 22:00 Lidocaine (Lidoderm) 1 patch DAILY TP Last administered on 09/26/17 10:03; Start 09/21/17 at 09:00 Multivitamins/ Calcium (Thera-M Plus) 1 tab DAILY PO Last administered on 10:02; Start 09/21/17 at 09:00 Sodium Chloride (Saline Mist Nasal) 2 kenneth PRN Q2HR PRN NS Nasal Congestion Last administered on 09/21/17 20:49; Start 09/20/17 at 22:00 Tramadol HCl (Ultram) 50 mg PRN Q6HRS PRN PO PAIN Last administered on 15:41; Start 09/20/17 at 22:00 Lactulose (Lactulose) 10 gm PRN QID PRN PO CONSTIPATION; Start 09/20/17 at 22: 15 Cetirizine HCl (ZyrTEC) 10 mg DAILY PO Last administered on 09/26/17 10:02; Start 09/21/17 at 09:00 Non-Formulary Medication (Menthol (Biofreeze)) 1 kenneth PRN TID PRN TP MUSCLE PAIN ; Start 09/20/17 at 22:00; Status UNV Thiamine HCl (Vitamin B-1) 100 mg BID PO Last administered on 09/26/17 19:49; Start 09/21/17 at 09:00 Miscellaneous (Lidoderm Patch Removal) 1 ea QHS MC Last administered on 19:49; Start 09/20/17 at 21:00 Quetiapine Fumarate (SEROquel) 25 mg BID92 PO Last administered on 09/26/17at 12 :46; Start 09/22/17 at 09:00 Quetiapine Fumarate (SEROquel) 50 mg QHS PO Last administered on 09/26/17 19: 49; Start 09/21/17 at 21:00 Sertraline HCl (Zoloft) 25 mg DAILY PO Last administered on 09/26/17 10:03; Start 09/24/17 at 09:00; Stop 09/27/17 at 08:59 Sertraline HCl (Zoloft) 50 mg DAILY PO ; Start 09/27/17 at 09:00 Vitamin D (Vitamin D3) 50,000 unit WEEKLY PO Last administered on 09/24/17at 19: 42; Start 09/24/17 at 20:00 Gabapentin (Neurontin) 100 mg TID PO Last administered on 09/26/17at 19:49; Start 09/24/17 at 21:00 Buspirone HCl (Buspar) 5 mg BID@0900,1300 PO Last administered on 09/26/17at 10: 05; Start 09/26/17 at 09:00; Stop 09/26/17 at 11:29; Status DC Cyanocobalamin (Vitamin B-12) 1,000 mcg QMONTH IM Last administered on at 10:05; Start 09/26/17 at 09:00 Buspirone HCl (Buspar) 5 mg TID@0900,1300,1500 PO Last administered on at 12:46; Start 09/26/17 at 13:00; Stop 09/26/17 at 13:00; Status DC Buspirone HCl (Buspar) 5 mg TID@0900,1300,1700 PO Last administered on at 17:56; Start 09/26/17 at 17:00 Active Scripts Active Reported Claritin (Loratadine) 10 Mg Tablet 10 Mg PO DAILY [place] (Sodium Chloride) 44 Ml [place] 1 [place] NS PRN Q2HR PRN Fluticasone Propionate Nasal [place] (Fluticasone Propionate) 16 Gm [place].susp 2 [place] NS BID Benadryl (Diphenhydramine Hcl) 25 Mg Capsule 25 Mg PO PRN BID PRN Ultram (Tramadol HCl) 50 Mg Tablet 50 Mg PO PRN Q6HRS PRN Ativan (Lorazepam) 0.5 Mg Tablet 0.5 Mg PO PRN Q4HRS PRN Seroquel (Quetiapine Fumarate) 25 Mg Tablet 25 Mg PO TID Calcium Carbonate 500 Mg Tablet 500 Mg PO PRN QID PRN Biofreeze (Menthol) 118 Ml Gel..ml. 1 Kenneth TP PRN TID PRN Lactulose 10 Gm/15 Ml Solution 10 Gm PO PRN QID PRN Vitamin B-1 (Thiamine Mononitrate) 100 Mg Tablet 100 Mg PO BID Thera M Plus Tablet (Multivits,Ca,Minerals/Iron/FA) 1 Each Tablet 1 Tab PO DAILY Lidocaine 1 Each Adh..patch 1 Patch TP DAILY [place] 5-325 Tablet (Hydrocodone Bit/Acetaminophen) 1 Each Tablet 2 Tab PO PRN Q6HRS PRN [place] 5-325 Tablet (Hydrocodone Bit/Acetaminophen) 1 Each Tablet 1 Tab PO PRN Q6HRS PRN Folic Acid 1 Mg Tablet 1 Mg PO DAILY I have reviewed the current psychotropics carefully including drug interactions. Risk benefit ratio favors no change other than as noted in my dictated progress note. Diagnosis: Problems: (1) Depression (2) Alcohol-induced persisting dementia (3) Alcohol dependence (4) Anxiety disorder (5) Impulse control disorder (6) Major depressive disorder, recurrent episode DAVID SWAN MD Sep 26, 2017 21:06
[2017-09-27] MEDS: HYDROcodone/APAP 5/325MG 1 TAB TABLET PO PRN ×3 (01:52→18:09)
[2017-09-27] MEDS: diphenhydrAMINE HCL 25 MG CAPSULE PO PRN (02:53)
[2017-09-27 05:59] VITALS: BP 112/55
[2017-09-27] MEDS: CETIRIZINE HCL 10 MG TABLET PO SCH (10:39)
[2017-09-27] MEDS: FLUTICASONE 50MCG/NASAL SPRAY 16GM BOTTLE. NS SCH ×2 (10:39→19:50)
[2017-09-27] MEDS: THIAMINE 100 MG TABLET. PO SCH ×2 (10:40→19:49)
[2017-09-27] MEDS: GABAPENTIN 100 MG CAPSULE. PO SCH ×3 (10:40→19:49)
[2017-09-27] MEDS: busPIRone 5 MG TABLET. PO SCH ×3 (10:40→17:34)
[2017-09-27] MEDS: MULTIVITAMIN with MINERAL TABLET. PO SCH (10:40)
[2017-09-27] MEDS: FOLIC ACID 1 MG TABLET PO SCH (10:40)
[2017-09-27] MEDS: QUEtiapine 25 MG TABLET. PO SCH ×2 (10:40→14:42)
[2017-09-27] MEDS: LIDOCAINE (700MG/PATCH) PATCH. TP SCH (10:41)
[2017-09-27] MEDS: SERTRALINE 50 MG TABLET. PO SCH (10:47)
[2017-09-27 16:19] VITALS: BP 129/69
[2017-09-27] MEDS: QUEtiapine 50 MG TABLET. PO SCH (19:49)
[2017-09-27] MEDS: PATCH REMOVAL. MC SCH (19:50)
[2017-09-27] MEDS: MIRTAZAPINE 7.5 MG TABLET. PO SCH (19:50)
--- NOTE | 2017-09-27 20:02 | PN ---
DATE: 09/25/2017 PSYCHIATRIC PROGRESS NOTE This is a late entry 09/25/2017, covers elements not covered in my initial note 09/25/2017. SUBJECTIVE: I met with the patient evening of 09/25/2017. The patient slept 6 hours previous evening, remains anxious, constantly back to the nursing station. Appetite is increased, demanding at times, wanting additional snacks. She has a labile mood, yells out at times. She remains on thiamine and folic acid and this is good since she has a past history of alcohol abuse. REVIEW OF SYSTEMS: No CV, , pulmonary, eye, ENT system symptoms on review. Reliability varies. MENTAL STATUS EXAM: Oriented to herself and situation. Speech is coherent, abstraction fair, computation impaired, language function intact, attention span short. Mood and affect somewhat anxious, labile. LABORATORY DATA: Reviewed. 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 PLAN: Start BuSpar 5 mg twice a day. Continue rest of the psychotropics unchanged including Zoloft, Seroquel, Ativan p.r.n. Zoloft will be increased to 50 mg a day on 09/27/2017. DAVID SWAN MD DR: KATHERINE/mauro JOB#: [id number] / [id number]
--- NOTE | 2017-09-27 20:56 | PDOC ---
Exam Note: Brandon Note: Please also refer to the separate dictated note~for this date of service dictated separately.~Patient seen individually. Discussed the patient with Nursing staff reviewed the chart.~Reviewed interim history and current functioning. Reviewed vital signs,~Labs/ Radiology~and current medications noted below. Continue current treatment with the changes noted in the dictated addendum note Assessment: Vital Signs: Vital Signs Date Time Temp Pulse Resp B/P (MAP) Pulse Ox O2 Delivery O2 Flow Rate FiO2 09/27/17 19:31 98 Room Air 09/27/17 16:19 97.8 106 18 129/69 (89) I&O Intake and Output 09/27/17 07:00 Intake Total 1380 ml Balance 1380 ml Intake Oral 1380 ml # Bowel Movements 1 Current Medications: Meds: Current Medications Lorazepam (Ativan) 2 mg 1X ONCE IV Last administered on 09/20/17at 20:00; Start 09/20/17 at 20:00; Stop 09/20/17 at 20:01; Status DC Oxycodone/ Acetaminophen (Percocet 7.5/ 325) 1 tab STK-MED ONCE .ROUTE ; Start 09/20/17 at 19:44; Stop 09/20/17 at 19:45; Status DC Oxycodone/ Acetaminophen (Percocet 7.5/ 325) 2 tab 1X ONCE PO Last administered on 09/20/17at 19:45; Start 09/20/17 at 20:00; Stop 09/20/17 at 20:01 ; Status DC Lactated Ringer's 1,000 ml @ 1,000 mls/hr 1X ONCE IV ; Start 09/20/17 at 21:00 ; Stop 09/20/17 at 21:59; Status DC Acetaminophen (Tylenol) 650 mg PRN Q6HRS PRN PO PAIN / TEMP Last administered on 09/25/17at 13:09; Start 09/20/17 at 22:00 Multi-Ingredient Ointment (Analgesic [place]) 1 kenneth PRN QID PRN TP MUSCLE PAIN; Start 09/20/17 at 22:00 Al Hydroxide/Mg Hydroxide (Mylanta Plus Xs) 15 ml PRN AFTMEALHC PRN PO DYSPEPSIA Last administered on 09/21/17at 01:24; Start 09/20/17 at 22:00 Magnesium Hydroxide (Milk Of Magnesia) 2,400 mg PRN QHS PRN PO CONSTIPATION; Start 09/20/17 at 22:00 Lorazepam (Ativan) 0.5 mg PRN Q4HRS PRN PO ANXIETY / AGITATION Last administered on 09/22/17 19:21; Start 09/20/17 at 22:00 Quetiapine Fumarate (SEROquel) 25 mg TID PO Last administered on 09/21/17 14: 08; Start 09/20/17 at 22:30; Stop 09/21/17 at 18:38; Status DC Calcium Carbonate/ Glycine (Tums) 500 mg PRN QID PRN PO DYSPEPSIA; Start at 22:00 Diphenhydramine HCl (Benadryl) 25 mg PRN BID PRN PO ALLERGIES Last administered on 09/27/17 02:53; Start 09/20/17 at 22:00 Fluticasone Propionate (Flonase) 2 spray BID NS Last administered on 09/27/17 19:50; Start 09/21/17 at 09:00 Folic Acid (Folic Acid) 1 mg DAILY PO Last administered on 09/27/17 10:40; Start 09/21/17 at 09:00 Acetaminophen/ Hydrocodone Bitart (Lortab 5/325) 1 tab PRN Q6HRS PRN PO MODERATE PAIN Last administered on 09/27/17 18:09; Start 09/20/17 at 22:00 Acetaminophen/ Hydrocodone Bitart (Lortab 5/325) 2 tab PRN Q6HRS PRN PO SEVERE PAIN Last administered on 09/25/17 08:38; Start 09/20/17 at 22:00 Lidocaine (Lidoderm) 1 patch DAILY TP Last administered on 09/27/17 10:41; Start 09/21/17 at 09:00 Multivitamins/ Calcium (Thera-M Plus) 1 tab DAILY PO Last administered on 10:40; Start 09/21/17 at 09:00 Sodium Chloride (Saline Mist Nasal) 2 kenneth PRN Q2HR PRN NS Nasal Congestion Last administered on 09/21/17 20:49; Start 09/20/17 at 22:00 Tramadol HCl (Ultram) 50 mg PRN Q6HRS PRN PO PAIN Last administered on 15:41; Start 09/20/17 at 22:00 Lactulose (Lactulose) 10 gm PRN QID PRN PO CONSTIPATION; Start 09/20/17 at 22: 15 Cetirizine HCl (ZyrTEC) 10 mg DAILY PO Last administered on 09/27/17 10:39; Start 09/21/17 at 09:00 Non-Formulary Medication (Menthol (Biofreeze)) 1 kenneth PRN TID PRN TP MUSCLE PAIN ; Start 09/20/17 at 22:00; Status UNV Thiamine HCl (Vitamin B-1) 100 mg BID PO Last administered on 09/27/17 19:49; Start 09/21/17 at 09:00 Miscellaneous (Lidoderm Patch Removal) 1 ea QHS MC Last administered on 19:50; Start 09/20/17 at 21:00 Quetiapine Fumarate (SEROquel) 25 mg BID92 PO Last administered on 09/27/17 14 :42; Start 09/22/17 at 09:00 Quetiapine Fumarate (SEROquel) 50 mg QHS PO Last administered on 09/27/17 19: 49; Start 09/21/17 at 21:00 Sertraline HCl (Zoloft) 25 mg DAILY PO Last administered on 09/26/17 10:03; Start 09/24/17 at 09:00; Stop 09/27/17 at 08:59; Status DC Sertraline HCl (Zoloft) 50 mg DAILY PO Last administered on 09/27/17 10:47; Start 09/27/17 at 09:00 Vitamin D (Vitamin D3) 50,000 unit WEEKLY PO Last administered on 09/24/17 19: 42; Start 09/24/17 at 20:00 Gabapentin (Neurontin) 100 mg TID PO Last administered on 09/27/17 19:49; Start 09/24/17 at 21:00 Buspirone HCl (Buspar) 5 mg BID@0900,1300 PO Last administered on 09/26/17at 10: 05; Start 09/26/17 at 09:00; Stop 09/26/17 at 11:29; Status DC Cyanocobalamin (Vitamin B-12) 1,000 mcg QMONTH IM Last administered on at 10:05; Start 09/26/17 at 09:00 Buspirone HCl (Buspar) 5 mg TID@0900,1300,1500 PO Last administered on at 12:46; Start 09/26/17 at 13:00; Stop 09/26/17 at 13:00; Status DC Buspirone HCl (Buspar) 5 mg TID@0900,1300,1700 PO Last administered on at 17:34; Start 09/26/17 at 17:00 Mirtazapine (Remeron) 7.5 mg QHS PO Last administered on 09/27/17at 19:50; Start 09/27/17 at 21:00 Active Scripts Active Reported Claritin (Loratadine) 10 Mg Tablet 10 Mg PO DAILY [place] (Sodium Chloride) 44 Ml [place] 1 [place] NS PRN Q2HR PRN Fluticasone Propionate Nasal [place] (Fluticasone Propionate) 16 Gm [place].susp 2 [place] NS BID Benadryl (Diphenhydramine Hcl) 25 Mg Capsule 25 Mg PO PRN BID PRN Ultram (Tramadol HCl) 50 Mg Tablet 50 Mg PO PRN Q6HRS PRN Ativan (Lorazepam) 0.5 Mg Tablet 0.5 Mg PO PRN Q4HRS PRN Seroquel (Quetiapine Fumarate) 25 Mg Tablet 25 Mg PO TID Calcium Carbonate 500 Mg Tablet 500 Mg PO PRN QID PRN Biofreeze (Menthol) 118 Ml Gel..ml. 1 [place] TP PRN TID PRN Lactulose 10 Gm/15 Ml Solution 10 Gm PO PRN QID PRN Vitamin B-1 (Thiamine Mononitrate) 100 Mg Tablet 100 Mg PO BID Thera M Plus Tablet (Multivits,Ca,Minerals/Iron/FA) 1 Each Tablet 1 Tab PO DAILY Lidocaine 1 Each Adh..patch 1 Patch TP DAILY [place] 5-325 Tablet (Hydrocodone Bit/Acetaminophen) 1 Each Tablet 2 Tab PO PRN Q6HRS PRN [place] 5-325 Tablet (Hydrocodone Bit/Acetaminophen) 1 Each Tablet 1 Tab PO PRN Q6HRS PRN Folic Acid 1 Mg Tablet 1 Mg PO DAILY I have reviewed the current psychotropics carefully including drug interactions. Risk benefit ratio favors no change other than as noted in my dictated progress note. Diagnosis: Problems: (1) Depression (2) Alcohol-induced persisting dementia (3) Alcohol dependence (4) Anxiety disorder (5) Impulse control disorder (6) Major depressive disorder, recurrent episode DAVID SWAN MD Sep 27, 2017 20:56
[2017-09-27] MEDS: traMADol 50 MG TABLET PO PRN (21:06)
--- NOTE | 2017-09-27 21:23 | PN ---
DATE: 09/26/2017 PSYCHIATRIC PROGRESS NOTE This is a late entry 09/26/2017 covers elements not covered in my initial note 09/26/2017. SUBJECTIVE: I met with the patient in the evening, staffed at a treatment team meeting with the entire team in the morning. On the mini mental status examination, the patient scores 18/30. She slept 5-1/2 hours, labile in her mood, attention seeking, medication seeking, anxious, restless. FAMILY HISTORY: Reveals borderline personality disorder in mother and brother. REVIEW OF SYSTEMS: No CV, , pulmonary, eye, ENT system symptoms on review. MENTAL STATUS EXAM: Oriented to herself and situation. Speech coherent, abstraction fair, computation impaired, language function intact. Mood and affect still depressed, but showing improvement. She has cognitive deficits. LABORATORY DATA: Reviewed. 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 PLAN: Increase BuSpar from 5 mg twice a day to 5 mg 3 times a day. Continue rest unchanged per initial note. MAN Dannielle SWAN MD DR: KATHERINE/mauro JOB#: [id number] / [id number]
[2017-09-28] MEDS: HYDROcodone/APAP 5/325MG 1 TAB TABLET PO PRN ×3 (03:44→19:37)
[2017-09-28] MEDS: ACETAMINOPHEN 325 MG TABLET PO PRN (05:50)
[2017-09-28 05:54] VITALS: BP 156/76
[2017-09-28] MEDS: LIDOCAINE (700MG/PATCH) PATCH. TP SCH (08:25)
[2017-09-28] MEDS: busPIRone 5 MG TABLET. PO SCH ×3 (08:26→17:14)
[2017-09-28] MEDS: FLUTICASONE 50MCG/NASAL SPRAY 16GM BOTTLE. NS SCH ×2 (08:26→21:00)
[2017-09-28] MEDS: MULTIVITAMIN with MINERAL TABLET. PO SCH (08:27)
[2017-09-28] MEDS: GABAPENTIN 100 MG CAPSULE. PO SCH ×3 (08:27→19:41)
[2017-09-28] MEDS: QUEtiapine 25 MG TABLET. PO SCH ×2 (08:27→13:09)
[2017-09-28] MEDS: FOLIC ACID 1 MG TABLET PO SCH (08:27)
[2017-09-28] MEDS: SERTRALINE 50 MG TABLET. PO SCH (08:27)
[2017-09-28] MEDS: THIAMINE 100 MG TABLET. PO SCH ×2 (08:27→19:37)
[2017-09-28] MEDS: CETIRIZINE HCL 10 MG TABLET PO SCH (08:28)
[2017-09-28 16:16] VITALS: BP 104/60
[2017-09-28] MEDS: MIRTAZAPINE 7.5 MG TABLET. PO SCH (19:37)
[2017-09-28] MEDS: QUEtiapine 50 MG TABLET. PO SCH (19:37)
[2017-09-28] MEDS: PATCH REMOVAL. MC SCH (21:00)
--- NOTE | 2017-09-28 22:40 | PDOC ---
Exam Note: Brandon Note: Please also refer to the separate dictated note~for this date of service dictated separately.~Patient seen individually. Discussed the patient with Nursing staff reviewed the chart.~Reviewed interim history and current functioning. Reviewed vital signs,~Labs/ Radiology~and current medications noted below. Continue current treatment with the changes noted in the dictated addendum note Assessment: Vital Signs: Vital Signs Date Time Temp Pulse Resp B/P (MAP) Pulse Ox O2 Delivery O2 Flow Rate FiO2 09/28/17 16:16 97.1 102 18 104/60 (75) 97 Room Air I&O Intake and Output 09/28/17 07:00 Intake Total 1320 ml Balance 1320 ml Intake Oral 1320 ml Current Medications: Meds: Current Medications Lorazepam (Ativan) 2 mg 1X ONCE IV Last administered on 09/20/17at 20:00; Start 09/20/17 at 20:00; Stop 09/20/17 at 20:01; Status DC Oxycodone/ Acetaminophen (Percocet 7.5/ 325) 1 tab STK-MED ONCE .ROUTE ; Start 09/20/17 at 19:44; Stop 09/20/17 at 19:45; Status DC Oxycodone/ Acetaminophen (Percocet 7.5/ 325) 2 tab 1X ONCE PO Last administered on 09/20/17at 19:45; Start 09/20/17 at 20:00; Stop 09/20/17 at 20:01 ; Status DC Lactated Ringer's 1,000 ml @ 1,000 mls/hr 1X ONCE IV ; Start 09/20/17 at 21:00 ; Stop 09/20/17 at 21:59; Status DC Acetaminophen (Tylenol) 650 mg PRN Q6HRS PRN PO PAIN / TEMP Last administered on 09/28/17at 05:50; Start 09/20/17 at 22:00 Multi-Ingredient Ointment (Analgesic [place]) 1 kenneth PRN QID PRN TP MUSCLE PAIN; Start 09/20/17 at 22:00 Al Hydroxide/Mg Hydroxide (Mylanta Plus Xs) 15 ml PRN AFTMEALHC PRN PO DYSPEPSIA Last administered on 09/21/17at 01:24; Start 09/20/17 at 22:00 Magnesium Hydroxide (Milk Of Magnesia) 2,400 mg PRN QHS PRN PO CONSTIPATION; Start 09/20/17 at 22:00 Lorazepam (Ativan) 0.5 mg PRN Q4HRS PRN PO ANXIETY / AGITATION Last administered on 09/22/17 19:21; Start 09/20/17 at 22:00 Quetiapine Fumarate (SEROquel) 25 mg TID PO Last administered on 09/21/17 14: 08; Start 09/20/17 at 22:30; Stop 09/21/17 at 18:38; Status DC Calcium Carbonate/ Glycine (Tums) 500 mg PRN QID PRN PO DYSPEPSIA; Start at 22:00 Diphenhydramine HCl (Benadryl) 25 mg PRN BID PRN PO ALLERGIES Last administered on 09/27/17 02:53; Start 09/20/17 at 22:00 Fluticasone Propionate (Flonase) 2 spray BID NS Last administered on 09/28/17 08:26; Start 09/21/17 at 09:00 Folic Acid (Folic Acid) 1 mg DAILY PO Last administered on 09/28/17 08:27; Start 09/21/17 at 09:00 Acetaminophen/ Hydrocodone Bitart (Lortab 5/325) 1 tab PRN Q6HRS PRN PO MODERATE PAIN Last administered on 09/28/17 19:37; Start 09/20/17 at 22:00 Acetaminophen/ Hydrocodone Bitart (Lortab 5/325) 2 tab PRN Q6HRS PRN PO SEVERE PAIN Last administered on 09/25/17 08:38; Start 09/20/17 at 22:00 Lidocaine (Lidoderm) 1 patch DAILY TP Last administered on 09/28/17 08:25; Start 09/21/17 at 09:00 Multivitamins/ Calcium (Thera-M Plus) 1 tab DAILY PO Last administered on 08:27; Start 09/21/17 at 09:00 Sodium Chloride (Saline Mist Nasal) 2 kenneth PRN Q2HR PRN NS Nasal Congestion Last administered on 09/21/17 20:49; Start 09/20/17 at 22:00 Tramadol HCl (Ultram) 50 mg PRN Q6HRS PRN PO PAIN Last administered on 21:06; Start 09/20/17 at 22:00 Lactulose (Lactulose) 10 gm PRN QID PRN PO CONSTIPATION; Start 09/20/17 at 22: 15 Cetirizine HCl (ZyrTEC) 10 mg DAILY PO Last administered on 09/28/17at 08:28; Start 09/21/17 at 09:00 Non-Formulary Medication (Menthol (Biofreeze)) 1 kenneth PRN TID PRN TP MUSCLE PAIN ; Start 09/20/17 at 22:00; Status UNV Thiamine HCl (Vitamin B-1) 100 mg BID PO Last administered on 09/28/17 19:37; Start 09/21/17 at 09:00 Miscellaneous (Lidoderm Patch Removal) 1 ea QHS MC Last administered on 21:00; Start 09/20/17 at 21:00 Quetiapine Fumarate (SEROquel) 25 mg BID92 PO Last administered on 09/28/17 13 :09; Start 09/22/17 at 09:00 Quetiapine Fumarate (SEROquel) 50 mg QHS PO Last administered on 09/28/17 19: 37; Start 09/21/17 at 21:00 Sertraline HCl (Zoloft) 25 mg DAILY PO Last administered on 09/26/17 10:03; Start 09/24/17 at 09:00; Stop 09/27/17 at 08:59; Status DC Sertraline HCl (Zoloft) 50 mg DAILY PO Last administered on 09/28/17 08:27; Start 09/27/17 at 09:00 Vitamin D (Vitamin D3) 50,000 unit WEEKLY PO Last administered on 09/24/17 19: 42; Start 09/24/17 at 20:00 Gabapentin (Neurontin) 100 mg TID PO Last administered on 09/28/17 19:41; Start 09/24/17 at 21:00 Buspirone HCl (Buspar) 5 mg BID@0900,1300 PO Last administered on 09/26/17 10: 05; Start 09/26/17 at 09:00; Stop 09/26/17 at 11:29; Status DC Cyanocobalamin (Vitamin B-12) 1,000 mcg QMONTH IM Last administered on at 10:05; Start 09/26/17 at 09:00 Buspirone HCl (Buspar) 5 mg TID@0900,1300,1500 PO Last administered on at 12:46; Start 09/26/17 at 13:00; Stop 09/26/17 at 13:00; Status DC Buspirone HCl (Buspar) 5 mg TID@0900,1300,1700 PO Last administered on at 17:14; Start 09/26/17 at 17:00 Mirtazapine (Remeron) 7.5 mg QHS PO Last administered on 09/28/17at 19:37; Start 09/27/17 at 21:00 Active Scripts Active Reported Claritin (Loratadine) 10 Mg Tablet 10 Mg PO DAILY [place] (Sodium Chloride) 44 Ml [place] 1 [place] NS PRN Q2HR PRN Fluticasone Propionate Nasal [place] (Fluticasone Propionate) 16 Gm [place].susp 2 [place] NS BID Benadryl (Diphenhydramine Hcl) 25 Mg Capsule 25 Mg PO PRN BID PRN Ultram (Tramadol HCl) 50 Mg Tablet 50 Mg PO PRN Q6HRS PRN Ativan (Lorazepam) 0.5 Mg Tablet 0.5 Mg PO PRN Q4HRS PRN Seroquel (Quetiapine Fumarate) 25 Mg Tablet 25 Mg PO TID Calcium Carbonate 500 Mg Tablet 500 Mg PO PRN QID PRN Biofreeze (Menthol) 118 Ml Gel..ml. 1 [place] TP PRN TID PRN Lactulose 10 Gm/15 Ml Solution 10 Gm PO PRN QID PRN Vitamin B-1 (Thiamine Mononitrate) 100 Mg Tablet 100 Mg PO BID Thera M Plus Tablet (Multivits,Ca,Minerals/Iron/FA) 1 Each Tablet 1 Tab PO DAILY Lidocaine 1 Each Adh..patch 1 Patch TP DAILY [place] 5-325 Tablet (Hydrocodone Bit/Acetaminophen) 1 Each Tablet 2 Tab PO PRN Q6HRS PRN [place] 5-325 Tablet (Hydrocodone Bit/Acetaminophen) 1 Each Tablet 1 Tab PO PRN Q6HRS PRN Folic Acid 1 Mg Tablet 1 Mg PO DAILY I have reviewed the current psychotropics carefully including drug interactions. Risk benefit ratio favors no change other than as noted in my dictated progress note. Diagnosis: Problems: (1) Depression (2) Alcohol-induced persisting dementia (3) Alcohol dependence (4) Anxiety disorder (5) Impulse control disorder (6) Major depressive disorder, recurrent episode DAVID SWAN MD Sep 28, 2017 22:40
[2017-09-29] MEDS: HYDROcodone/APAP 5/325MG 1 TAB TABLET PO PRN ×2 (01:38→13:15)
[2017-09-29] MEDS: ACETAMINOPHEN 325 MG TABLET PO PRN ×3 (04:03→17:37)
[2017-09-29 06:34] VITALS: BP 118/55
[2017-09-29] MEDS: FOLIC ACID 1 MG TABLET PO SCH (08:40)
[2017-09-29] MEDS: CETIRIZINE HCL 10 MG TABLET PO SCH (08:41)
[2017-09-29] MEDS: QUEtiapine 25 MG TABLET. PO SCH ×2 (08:41→13:14)
[2017-09-29] MEDS: busPIRone 5 MG TABLET. PO SCH ×3 (08:41→16:54)
[2017-09-29] MEDS: GABAPENTIN 100 MG CAPSULE. PO SCH ×3 (08:41→19:49)
[2017-09-29] MEDS: THIAMINE 100 MG TABLET. PO SCH ×2 (08:41→19:49)
[2017-09-29] MEDS: SERTRALINE 50 MG TABLET. PO SCH (08:41)
[2017-09-29] MEDS: LIDOCAINE (700MG/PATCH) PATCH. TP SCH (08:41)
[2017-09-29] MEDS: MULTIVITAMIN with MINERAL TABLET. PO SCH (08:41)
[2017-09-29] MEDS: FLUTICASONE 50MCG/NASAL SPRAY 16GM BOTTLE. NS SCH ×2 (08:46→19:48)
[2017-09-29 15:46] VITALS: BP 135/79
[2017-09-29] MEDS: QUEtiapine 50 MG TABLET. PO SCH (19:49)
[2017-09-29] MEDS: MIRTAZAPINE 7.5 MG TABLET. PO SCH (19:49)
--- NOTE | 2017-09-29 20:58 | PDOC ---
Exam Note: Brandon Note: Please also refer to the separate dictated note~for this date of service dictated separately.~Patient seen individually. Discussed the patient with Nursing staff reviewed the chart.~Reviewed interim history and current functioning. Reviewed vital signs,~Labs/ Radiology~and current medications noted below. Continue current treatment with the changes noted in the dictated addendum note Assessment: Vital Signs: Vital Signs Date Time Temp Pulse Resp B/P (MAP) Pulse Ox O2 Delivery O2 Flow Rate FiO2 09/29/17 15:46 97.8 93 20 135/79 (97) 98 09/29/17 06:34 Room Air I&O Intake and Output 09/29/17 07:00 Intake Total 540 ml Balance 540 ml Intake Oral 540 ml Current Medications: Meds: Current Medications Lorazepam (Ativan) 2 mg 1X ONCE IV Last administered on 09/20/17at 20:00; Start 09/20/17 at 20:00; Stop 09/20/17 at 20:01; Status DC Oxycodone/ Acetaminophen (Percocet 7.5/ 325) 1 tab STK-MED ONCE .ROUTE ; Start 09/20/17 at 19:44; Stop 09/20/17 at 19:45; Status DC Oxycodone/ Acetaminophen (Percocet 7.5/ 325) 2 tab 1X ONCE PO Last administered on 09/20/17at 19:45; Start 09/20/17 at 20:00; Stop 09/20/17 at 20:01 ; Status DC Lactated Ringer's 1,000 ml @ 1,000 mls/hr 1X ONCE IV ; Start 09/20/17 at 21:00 ; Stop 09/20/17 at 21:59; Status DC Acetaminophen (Tylenol) 650 mg PRN Q6HRS PRN PO PAIN / TEMP Last administered on 09/29/17at 17:37; Start 09/20/17 at 22:00 Multi-Ingredient Ointment (Analgesic [place]) 1 kenneth PRN QID PRN TP MUSCLE PAIN; Start 09/20/17 at 22:00 Al Hydroxide/Mg Hydroxide (Mylanta Plus Xs) 15 ml PRN AFTMEALHC PRN PO DYSPEPSIA Last administered on 09/21/17at 01:24; Start 09/20/17 at 22:00 Magnesium Hydroxide (Milk Of Magnesia) 2,400 mg PRN QHS PRN PO CONSTIPATION; Start 09/20/17 at 22:00 Lorazepam (Ativan) 0.5 mg PRN Q4HRS PRN PO ANXIETY / AGITATION Last administered on 09/22/17 19:21; Start 09/20/17 at 22:00 Quetiapine Fumarate (SEROquel) 25 mg TID PO Last administered on 09/21/17 14: 08; Start 09/20/17 at 22:30; Stop 09/21/17 at 18:38; Status DC Calcium Carbonate/ Glycine (Tums) 500 mg PRN QID PRN PO DYSPEPSIA; Start at 22:00 Diphenhydramine HCl (Benadryl) 25 mg PRN BID PRN PO ALLERGIES Last administered on 09/27/17 02:53; Start 09/20/17 at 22:00 Fluticasone Propionate (Flonase) 2 spray BID NS Last administered on 09/29/17 19:48; Start 09/21/17 at 09:00 Folic Acid (Folic Acid) 1 mg DAILY PO Last administered on 09/29/17 08:40; Start 09/21/17 at 09:00 Acetaminophen/ Hydrocodone Bitart (Lortab 5/325) 1 tab PRN Q6HRS PRN PO MODERATE PAIN Last administered on 09/29/17 13:15; Start 09/20/17 at 22:00 Acetaminophen/ Hydrocodone Bitart (Lortab 5/325) 2 tab PRN Q6HRS PRN PO SEVERE PAIN Last administered on 09/25/17 08:38; Start 09/20/17 at 22:00 Lidocaine (Lidoderm) 1 patch DAILY TP Last administered on 09/29/17 08:41; Start 09/21/17 at 09:00 Multivitamins/ Calcium (Thera-M Plus) 1 tab DAILY PO Last administered on 08:41; Start 09/21/17 at 09:00 Sodium Chloride (Saline Mist Nasal) 2 kenneth PRN Q2HR PRN NS Nasal Congestion Last administered on 09/21/17 20:49; Start 09/20/17 at 22:00 Tramadol HCl (Ultram) 50 mg PRN Q6HRS PRN PO PAIN Last administered on 4/20/ 18at 21:06; Start 09/20/17 at 22:00 Lactulose (Lactulose) 10 gm PRN QID PRN PO CONSTIPATION; Start 09/20/17 at 22: 15 Cetirizine HCl (ZyrTEC) 10 mg DAILY PO Last administered on 09/29/17at 08:41; Start 09/21/17 at 09:00 Non-Formulary Medication (Menthol (Biofreeze)) 1 kenneth PRN TID PRN TP MUSCLE PAIN ; Start 09/20/17 at 22:00; Status UNV Thiamine HCl (Vitamin B-1) 100 mg BID PO Last administered on 09/29/17 19:49; Start 09/21/17 at 09:00 Miscellaneous (Lidoderm Patch Removal) 1 ea QHS MC Last administered on at 21:00; Start 09/20/17 at 21:00 Quetiapine Fumarate (SEROquel) 25 mg BID92 PO Last administered on 09/29/17 13 :14; Start 09/22/17 at 09:00 Quetiapine Fumarate (SEROquel) 50 mg QHS PO Last administered on 09/29/17 19: 49; Start 09/21/17 at 21:00 Sertraline HCl (Zoloft) 25 mg DAILY PO Last administered on 09/26/17at 10:03; Start 09/24/17 at 09:00; Stop 09/27/17 at 08:59; Status DC Sertraline HCl (Zoloft) 50 mg DAILY PO Last administered on 09/29/17 08:41; Start 09/27/17 at 09:00; Stop 09/29/17 at 16:07; Status DC Vitamin D (Vitamin D3) 50,000 unit WEEKLY PO Last administered on 09/24/17at 19: 42; Start 09/24/17 at 20:00 Gabapentin (Neurontin) 100 mg TID PO Last administered on 09/29/17 19:49; Start 09/24/17 at 21:00 Buspirone HCl (Buspar) 5 mg BID@0900,1300 PO Last administered on 09/26/17at 10: 05; Start 09/26/17 at 09:00; Stop 09/26/17 at 11:29; Status DC Cyanocobalamin (Vitamin B-12) 1,000 mcg QMONTH IM Last administered on at 10:05; Start 09/26/17 at 09:00 Buspirone HCl (Buspar) 5 mg TID@0900,1300,1500 PO Last administered on at 12:46; Start 09/26/17 at 13:00; Stop 09/26/17 at 13:00; Status DC Buspirone HCl (Buspar) 5 mg TID@0900,1300,1700 PO Last administered on at 16:54; Start 09/26/17 at 17:00 Mirtazapine (Remeron) 7.5 mg QHS PO Last administered on 09/29/17at 19:49; Start 09/27/17 at 21:00 Sertraline HCl (Zoloft) 75 mg DAILY PO ; Start 09/30/17 at 09:00 Active Scripts Active Reported Claritin (Loratadine) 10 Mg Tablet 10 Mg PO DAILY [place] (Sodium Chloride) 44 Ml [place] 1 [place] NS PRN Q2HR PRN Fluticasone Propionate Nasal [place] (Fluticasone Propionate) 16 Gm [place].susp 2 [place] NS BID Benadryl (Diphenhydramine Hcl) 25 Mg Capsule 25 Mg PO PRN BID PRN Ultram (Tramadol HCl) 50 Mg Tablet 50 Mg PO PRN Q6HRS PRN Ativan (Lorazepam) 0.5 Mg Tablet 0.5 Mg PO PRN Q4HRS PRN Seroquel (Quetiapine Fumarate) 25 Mg Tablet 25 Mg PO TID Calcium Carbonate 500 Mg Tablet 500 Mg PO PRN QID PRN Biofreeze (Menthol) 118 Ml Gel..ml. 1 [place] TP PRN TID PRN Lactulose 10 Gm/15 Ml Solution 10 Gm PO PRN QID PRN Vitamin B-1 (Thiamine Mononitrate) 100 Mg Tablet 100 Mg PO BID Thera M Plus Tablet (Multivits,Ca,Minerals/Iron/FA) 1 Each Tablet 1 Tab PO DAILY Lidocaine 1 Each Adh..patch 1 Patch TP DAILY [place] 5-325 Tablet (Hydrocodone Bit/Acetaminophen) 1 Each Tablet 2 Tab PO PRN Q6HRS PRN [place] 5-325 Tablet (Hydrocodone Bit/Acetaminophen) 1 Each Tablet 1 Tab PO PRN Q6HRS PRN Folic Acid 1 Mg Tablet 1 Mg PO DAILY I have reviewed the current psychotropics carefully including drug interactions. Risk benefit ratio favors no change other than as noted in my dictated progress note. Diagnosis: Problems: (1) Depression (2) Alcohol-induced persisting dementia (3) Alcohol dependence (4) Anxiety disorder (5) Impulse control disorder (6) Major depressive disorder, recurrent episode DAVID SWAN MD Sep 29, 2017 20:58
[2017-09-29] MEDS: diphenhydrAMINE HCL 25 MG CAPSULE PO PRN (21:00)
[2017-09-29] MEDS: PATCH REMOVAL. MC SCH (21:00)
--- NOTE | 2017-09-30 04:49 | PN ---
DATE: 09/27/2017 PSYCHIATRIC PROGRESS NOTE This is a late entry of 09/27/2017, covers elements not covered in my initial note of 09/27/2017. I met with the patient evening of 09/27/2017. This patient slept 4-1/4 hours last night, remains somewhat anxious, , compliant with medications. symmetric. She is compliant with medication, previous evening. REVIEW OF SYSTEMS: No CV, , pulmonary, eye, ENT system symptoms on review. MENTAL STATUS EXAM: Oriented to herself and situation. Speech has some latency, coherent. Abstraction fair, computation impaired, language function intact. Mood and affect still somewhat withdrawn, depressed, minimizes this, however, . IMPRESSION: Major depressive disorder with psychotic features; major neurocognitive disorder, frequent falls with delusions, depression. PLAN: Start Remeron 7.5 mg p.o. at bedtime. Continue rest unchanged. DAVID SWAN MD DR: KATHERINE/mauro JOB#: [id number] / [id number]
[2017-09-30] MEDS: ACETAMINOPHEN 325 MG TABLET PO PRN (04:51)
[2017-09-30 06:42] VITALS: BP 120/75
[2017-09-30] MEDS: FLUTICASONE 50MCG/NASAL SPRAY 16GM BOTTLE. NS SCH ×2 (08:34→19:26)
[2017-09-30] MEDS: THIAMINE 100 MG TABLET. PO SCH ×2 (08:35→19:26)
[2017-09-30] MEDS: busPIRone 5 MG TABLET. PO SCH ×3 (08:35→16:53)
[2017-09-30] MEDS: FOLIC ACID 1 MG TABLET PO SCH (08:35)
[2017-09-30] MEDS: CETIRIZINE HCL 10 MG TABLET PO SCH (08:35)
[2017-09-30] MEDS: QUEtiapine 25 MG TABLET. PO SCH ×2 (08:35→14:25)
[2017-09-30] MEDS: GABAPENTIN 100 MG CAPSULE. PO SCH ×3 (08:36→19:26)
[2017-09-30] MEDS: MULTIVITAMIN with MINERAL TABLET. PO SCH (08:36)
[2017-09-30] MEDS: LIDOCAINE (700MG/PATCH) PATCH. TP SCH (08:37)
[2017-09-30] MEDS: SERTRALINE 50 MG TABLET. PO SCH (08:39)
[2017-09-30] MEDS: HYDROcodone/APAP 5/325MG 1 TAB TABLET PO PRN ×2 (08:41→19:34)
--- NOTE | 2017-09-30 10:28 | PN ---
DATE: 09/29/2017 This note covers elements not covered in my initial note 09/29/2017. SUBJECTIVE: I met with the patient in the afternoon. The patient slept 6-1/4 hours. She has been anxious, demanding, medication seeking, irritable at times, somewhat dysphoric, obsessive. REVIEW OF SYSTEMS: No CV, , pulmonary, eye system symptoms on review. MENTAL STATUS EXAM: Oriented to herself and situation. Speech has some latency. Abstraction fair, computation impaired, language function intact. Attention span short. Short term memory is impaired. No suicidal . 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 Rest unchanged. PLAN: mg a day. MAN Dannielle SWAN MD DR: KATHERINE/mauro JOB#: [id number] / [id number]
[2017-09-30 16:21] VITALS: BP 107/53
--- NOTE | 2017-09-30 16:26 | PN ---
DATE: 09/28/2017 PSYCHIATRIC PROGRESS NOTE This late entry 09/28/2017 covers elements not covered in my initial note of 09/28/2017. SUBJECTIVE: I met with the patient in the evening of 09/28/2017. The patient remains somewhat withdrawn, anxious, irritable at times, ____. MENTAL STATUS EXAM: ____ Oriented to herself to situation. Speech has some latency, coherent. Abstraction fair, computation impaired, language function intact. Mood and affect still somewhat depressed, withdrawn. LABORATORY DATA: Reviewed. IMPRESSION: Unchanged from initial note. PLAN: Continue psychotropics mentioned in my initial note. MAN Dannielle SWAN MD DR: KATHERINE/mauro JOB#: [id number] / [id number]
[2017-09-30] MEDS: PATCH REMOVAL. MC SCH (19:25)
[2017-09-30] MEDS: MIRTAZAPINE 7.5 MG TABLET. PO SCH (19:26)
[2017-09-30] MEDS: QUEtiapine 50 MG TABLET. PO SCH (19:26)
--- NOTE | 2017-09-30 20:53 | PDOC ---
Exam Note: Brandon Note: Please also refer to the separate dictated note~for this date of service dictated separately.~Patient seen individually. Discussed the patient with Nursing staff reviewed the chart.~Reviewed interim history and current functioning. Reviewed vital signs,~Labs/ Radiology~and current medications noted below. Continue current treatment with the changes noted in the dictated addendum note Assessment: Vital Signs: Vital Signs Date Time Temp Pulse Resp B/P (MAP) Pulse Ox O2 Delivery O2 Flow Rate FiO2 09/30/17 20:34 100 Room Air 09/30/17 19:34 18 09/30/17 16:21 97.6 104 107/53 (71) I&O Intake and Output 09/30/17 07:00 Intake Total 1040 ml Balance 1040 ml Intake Oral 1040 ml Current Medications: Meds: Current Medications Lorazepam (Ativan) 2 mg 1X ONCE IV Last administered on 09/20/17at 20:00; Start 09/20/17 at 20:00; Stop 09/20/17 at 20:01; Status DC Oxycodone/ Acetaminophen (Percocet 7.5/ 325) 1 tab STK-MED ONCE .ROUTE ; Start 09/20/17 at 19:44; Stop 09/20/17 at 19:45; Status DC Oxycodone/ Acetaminophen (Percocet 7.5/ 325) 2 tab 1X ONCE PO Last administered on 09/20/17at 19:45; Start 09/20/17 at 20:00; Stop 09/20/17 at 20:01 ; Status DC Lactated Ringer's 1,000 ml @ 1,000 mls/hr 1X ONCE IV ; Start 09/20/17 at 21:00 ; Stop 09/20/17 at 21:59; Status DC Acetaminophen (Tylenol) 650 mg PRN Q6HRS PRN PO PAIN / TEMP Last administered on 09/30/17at 04:51; Start 09/20/17 at 22:00 Multi-Ingredient Ointment (Analgesic [place]) 1 kenneth PRN QID PRN TP MUSCLE PAIN; Start 09/20/17 at 22:00 Al Hydroxide/Mg Hydroxide (Mylanta Plus Xs) 15 ml PRN AFTMEALHC PRN PO DYSPEPSIA Last administered on 09/21/17at 01:24; Start 09/20/17 at 22:00 Magnesium Hydroxide (Milk Of Magnesia) 2,400 mg PRN QHS PRN PO CONSTIPATION; Start 09/20/17 at 22:00 Lorazepam (Ativan) 0.5 mg PRN Q4HRS PRN PO ANXIETY / AGITATION Last administered on 09/22/17 19:21; Start 09/20/17 at 22:00 Quetiapine Fumarate (SEROquel) 25 mg TID PO Last administered on 09/21/17 14: 08; Start 09/20/17 at 22:30; Stop 09/21/17 at 18:38; Status DC Calcium Carbonate/ Glycine (Tums) 500 mg PRN QID PRN PO DYSPEPSIA; Start at 22:00 Diphenhydramine HCl (Benadryl) 25 mg PRN BID PRN PO ALLERGIES Last administered on 09/29/17 21:00; Start 09/20/17 at 22:00 Fluticasone Propionate (Flonase) 2 spray BID NS Last administered on 09/30/17 19:26; Start 09/21/17 at 09:00 Folic Acid (Folic Acid) 1 mg DAILY PO Last administered on 09/30/17 08:35; Start 09/21/17 at 09:00 Acetaminophen/ Hydrocodone Bitart (Lortab 5/325) 1 tab PRN Q6HRS PRN PO MODERATE PAIN Last administered on 09/30/17 08:41; Start 09/20/17 at 22:00 Acetaminophen/ Hydrocodone Bitart (Lortab 5/325) 2 tab PRN Q6HRS PRN PO SEVERE PAIN Last administered on 09/30/17 19:34; Start 09/20/17 at 22:00 Lidocaine (Lidoderm) 1 patch DAILY TP Last administered on 09/30/17 08:37; Start 09/21/17 at 09:00 Multivitamins/ Calcium (Thera-M Plus) 1 tab DAILY PO Last administered on 08:36; Start 09/21/17 at 09:00 Sodium Chloride (Saline Mist Nasal) 2 kenneth PRN Q2HR PRN NS Nasal Congestion Last administered on 09/21/17 20:49; Start 09/20/17 at 22:00 Tramadol HCl (Ultram) 50 mg PRN Q6HRS PRN PO PAIN Last administered on 21:06; Start 09/20/17 at 22:00 Lactulose (Lactulose) 10 gm PRN QID PRN PO CONSTIPATION; Start 09/20/17 at 22: 15 Cetirizine HCl (ZyrTEC) 10 mg DAILY PO Last administered on 09/30/17 08:35; Start 09/21/17 at 09:00 Non-Formulary Medication (Menthol (Biofreeze)) 1 kenneth PRN TID PRN TP MUSCLE PAIN ; Start 09/20/17 at 22:00; Status UNV Thiamine HCl (Vitamin B-1) 100 mg BID PO Last administered on 09/30/17 19:26; Start 09/21/17 at 09:00 Miscellaneous (Lidoderm Patch Removal) 1 ea QHS MC Last administered on 19:25; Start 09/20/17 at 21:00 Quetiapine Fumarate (SEROquel) 25 mg BID92 PO Last administered on 09/30/17 14 :25; Start 09/22/17 at 09:00 Quetiapine Fumarate (SEROquel) 50 mg QHS PO Last administered on 09/30/17 19: 26; Start 09/21/17 at 21:00 Sertraline HCl (Zoloft) 25 mg DAILY PO Last administered on 09/26/17 10:03; Start 09/24/17 at 09:00; Stop 09/27/17 at 08:59; Status DC Sertraline HCl (Zoloft) 50 mg DAILY PO Last administered on 09/29/17at 08:41; Start 09/27/17 at 09:00; Stop 09/29/17 at 16:07; Status DC Vitamin D (Vitamin D3) 50,000 unit WEEKLY PO Last administered on 09/24/17 19: 42; Start 09/24/17 at 20:00 Gabapentin (Neurontin) 100 mg TID PO Last administered on 09/30/17 19:26; Start 09/24/17 at 21:00 Buspirone HCl (Buspar) 5 mg BID@0900,1300 PO Last administered on 09/26/17 10: 05; Start 09/26/17 at 09:00; Stop 09/26/17 at 11:29; Status DC Cyanocobalamin (Vitamin B-12) 1,000 mcg QMONTH IM Last administered on at 10:05; Start 09/26/17 at 09:00 Buspirone HCl (Buspar) 5 mg TID@0900,1300,1500 PO Last administered on at 12:46; Start 09/26/17 at 13:00; Stop 09/26/17 at 13:00; Status DC Buspirone HCl (Buspar) 5 mg TID@0900,1300,1700 PO Last administered on at 16:53; Start 09/26/17 at 17:00 Mirtazapine (Remeron) 7.5 mg QHS PO Last administered on 09/30/17at 19:26; Start 09/27/17 at 21:00 Sertraline HCl (Zoloft) 75 mg DAILY PO Last administered on 09/30/17at 08:39; Start 09/30/17 at 09:00 Active Scripts Active Reported Claritin (Loratadine) 10 Mg Tablet 10 Mg PO DAILY [place] (Sodium Chloride) 44 Ml [place] 1 [place] NS PRN Q2HR PRN Fluticasone Propionate Nasal [place] (Fluticasone Propionate) 16 Gm [place].susp 2 [place] NS BID Benadryl (Diphenhydramine Hcl) 25 Mg Capsule 25 Mg PO PRN BID PRN Ultram (Tramadol HCl) 50 Mg Tablet 50 Mg PO PRN Q6HRS PRN Ativan (Lorazepam) 0.5 Mg Tablet 0.5 Mg PO PRN Q4HRS PRN Seroquel (Quetiapine Fumarate) 25 Mg Tablet 25 Mg PO TID Calcium Carbonate 500 Mg Tablet 500 Mg PO PRN QID PRN Biofreeze (Menthol) 118 Ml Gel..ml. 1 [place] TP PRN TID PRN Lactulose 10 Gm/15 Ml Solution 10 Gm PO PRN QID PRN Vitamin B-1 (Thiamine Mononitrate) 100 Mg Tablet 100 Mg PO BID Thera M Plus Tablet (Multivits,Ca,Minerals/Iron/FA) 1 Each Tablet 1 Tab PO DAILY Lidocaine 1 Each Adh..patch 1 Patch TP DAILY [place] 5-325 Tablet (Hydrocodone Bit/Acetaminophen) 1 Each Tablet 2 Tab PO PRN Q6HRS PRN [place] 5-325 Tablet (Hydrocodone Bit/Acetaminophen) 1 Each Tablet 1 Tab PO PRN Q6HRS PRN Folic Acid 1 Mg Tablet 1 Mg PO DAILY I have reviewed the current psychotropics carefully including drug interactions. Risk benefit ratio favors no change other than as noted in my dictated progress note. Diagnosis: Problems: (1) Depression (2) Alcohol-induced persisting dementia (3) Alcohol dependence (4) Anxiety disorder (5) Impulse control disorder (6) Major depressive disorder, recurrent episode DAVID SWAN MD Sep 30, 2017 20:53
--- NOTE | 2017-10-01 04:47 | PN ---
DATE: 09/28/2017 PSYCHIATRIC PROGRESS NOTE This is a late entry of 09/28/2017 covers elements not covered in my initial note of 09/28/2017. SUBJECTIVE: I met with the patient evening of 09/28/2017. This is a re-dictation request by medical records. Overall, the patient remains somewhat confused, forgetful of short term events, still depressed, but less dysphoric regarding the loss of her . We addressed her past alcohol abuse, need to refrain. No CV, , pulmonary, eye system symptoms on review. MENTAL STATUS EXAM: Oriented to herself and situation. Speech has some latency, coherent. Abstraction fair, computation impaired, language function intact, attention span short. Mood and affect still withdrawn, depressed, but improved. LABORATORY DATA: Reviewed. 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 PLAN: Unchanged from initial note. MAN Dannielle SWAN MD DR: KATHERINE/mauro JOB#: [id number] / [id number]
[2017-10-01] MEDS: HYDROcodone/APAP 5/325MG 1 TAB TABLET PO PRN (05:15)
[2017-10-01 06:27] VITALS: BP 104/65
[2017-10-01] MEDS: FLUTICASONE 50MCG/NASAL SPRAY 16GM BOTTLE. NS SCH ×2 (09:00→19:07)
[2017-10-01] MEDS: busPIRone 5 MG TABLET. PO SCH ×3 (09:38→16:53)
[2017-10-01] MEDS: LIDOCAINE (700MG/PATCH) PATCH. TP SCH (09:38)
[2017-10-01] MEDS: CETIRIZINE HCL 10 MG TABLET PO SCH (09:38)
[2017-10-01] MEDS: CHOLECALCIFEROL (VITAMIN D3) 50,000 UNIT CAPSULE PO SCH (09:38)
[2017-10-01] MEDS: FOLIC ACID 1 MG TABLET PO SCH (09:38)
[2017-10-01] MEDS: QUEtiapine 25 MG TABLET. PO SCH ×2 (09:38→13:26)
[2017-10-01] MEDS: THIAMINE 100 MG TABLET. PO SCH ×2 (09:38→19:08)
[2017-10-01] MEDS: GABAPENTIN 100 MG CAPSULE. PO SCH ×3 (09:38→19:07)
[2017-10-01] MEDS: MULTIVITAMIN with MINERAL TABLET. PO SCH (09:38)
[2017-10-01] MEDS: SERTRALINE 50 MG TABLET. PO SCH (09:39)
--- NOTE | 2017-10-01 11:08 | PN ---
DATE: 09/27/2017 PSYCHIATRIC PROGRESS NOTE This is a late entry 09/27/2017, covers elements not covered in my initial note 09/27/2017 SUBJECTIVE: I met with the patient the evening of 09/27/2017. This note is being redictated as requested by health information office. The patient slept 4-1/4 hours previous evening. Overall; somewhat anxious, forgetful similar to the day before. Compliant with the medication. Short term memory is impaired. No outbursts noted, compliant with h.s. medications. REVIEW OF SYSTEMS: No CV, , pulmonary, eye system symptoms on review. MENTAL STATUS EXAM: Oriented to herself and situation. Speech moderate latency, coherent. Abstraction fair, computation impaired, language function intact, attention span short. Mood and affect somewhat withdrawn, depressed at times. No suicidal or homicidal ideation. IMPRESSION: Unchanged from initial note. PLAN: Start Remeron 7.5 mg at bedtime to help with insomnia and to augment Zoloft, which is being increased gradually. MAN Dannielle SWAN MD DR: KATHERINE/mauro JOB#: [id number] / [id number]
--- NOTE | 2017-10-01 11:35 | PN ---
DATE: 09/29/2017 This is a late entry, 09/29/2017, covers the elements not covered in my initial note, 09/29/2017. SUBJECTIVE: I met with the patient in the afternoon. The patient has been demanding medication seeking, irritable at times. Still depressed, anxious. We will increase Zoloft to 75 mg a day. Slept 6-1/4 hours. REVIEW OF SYSTEMS: No CV, , pulmonary, eye system symptoms on review. MENTAL STATUS EXAM: Oriented to herself and situation. Speech moderate latency, coherent. Still depressed, anxious, talked about the loss of her . Short-term memory is impaired. Discussed abstaining from alcohol. No active suicidal or homicidal ideation. Attention span short. Language function intact. IMPRESSION: Unchanged from initial note. PLAN: Increase Zoloft to 75 mg a day. Rest unchanged from initial note. MAN Dannielle SWAN MD DR: KATHERINE/mauro JOB#: [id number] / [id number]
[2017-10-01] MEDS: PATCH REMOVAL. MC SCH (19:07)
[2017-10-01] MEDS: MIRTAZAPINE 7.5 MG TABLET. PO SCH (19:07)
[2017-10-01] MEDS: QUEtiapine 50 MG TABLET. PO SCH (19:08)
--- NOTE | 2017-10-01 20:52 | PDOC ---
Exam Note: Brandon Note: Please also refer to the separate dictated note~for this date of service dictated separately.~Patient seen individually. Discussed the patient with Nursing staff reviewed the chart.~Reviewed interim history and current functioning. Reviewed vital signs,~Labs/ Radiology~and current medications noted below. Continue current treatment with the changes noted in the dictated addendum note Assessment: Vital Signs: Vital Signs Date Time Temp Pulse Resp B/P (MAP) Pulse Ox O2 Delivery O2 Flow Rate FiO2 10/01/17 07:21 97 10/01/17 06:27 97.9 87 18 104/65 (78) 10/01/17 05:15 Room Air I&O Intake and Output 10/01/17 07:00 Intake Total 1440 ml Balance 1440 ml Intake Oral 1440 ml Current Medications: Meds: Current Medications Lorazepam (Ativan) 2 mg 1X ONCE IV Last administered on 09/20/17at 20:00; Start 09/20/17 at 20:00; Stop 09/20/17 at 20:01; Status DC Oxycodone/ Acetaminophen (Percocet 7.5/ 325) 1 tab STK-MED ONCE .ROUTE ; Start 09/20/17 at 19:44; Stop 09/20/17 at 19:45; Status DC Oxycodone/ Acetaminophen (Percocet 7.5/ 325) 2 tab 1X ONCE PO Last administered on 09/20/17at 19:45; Start 09/20/17 at 20:00; Stop 09/20/17 at 20:01 ; Status DC Lactated Ringer's 1,000 ml @ 1,000 mls/hr 1X ONCE IV ; Start 09/20/17 at 21:00 ; Stop 09/20/17 at 21:59; Status DC Acetaminophen (Tylenol) 650 mg PRN Q6HRS PRN PO PAIN / TEMP Last administered on 09/30/17at 04:51; Start 09/20/17 at 22:00 Multi-Ingredient Ointment (Analgesic [place]) 1 kenneth PRN QID PRN TP MUSCLE PAIN; Start 09/20/17 at 22:00 Al Hydroxide/Mg Hydroxide (Mylanta Plus Xs) 15 ml PRN AFTMEALHC PRN PO DYSPEPSIA Last administered on 09/21/17at 01:24; Start 09/20/17 at 22:00 Magnesium Hydroxide (Milk Of Magnesia) 2,400 mg PRN QHS PRN PO CONSTIPATION; Start 09/20/17 at 22:00 Lorazepam (Ativan) 0.5 mg PRN Q4HRS PRN PO ANXIETY / AGITATION Last administered on 09/22/17 19:21; Start 09/20/17 at 22:00 Quetiapine Fumarate (SEROquel) 25 mg TID PO Last administered on 09/21/17 14: 08; Start 09/20/17 at 22:30; Stop 09/21/17 at 18:38; Status DC Calcium Carbonate/ Glycine (Tums) 500 mg PRN QID PRN PO DYSPEPSIA; Start at 22:00 Diphenhydramine HCl (Benadryl) 25 mg PRN BID PRN PO ALLERGIES Last administered on 09/29/17 21:00; Start 09/20/17 at 22:00 Fluticasone Propionate (Flonase) 2 spray BID NS Last administered on 10/01/17 19:07; Start 09/21/17 at 09:00 Folic Acid (Folic Acid) 1 mg DAILY PO Last administered on 10/01/17 09:38; Start 09/21/17 at 09:00 Acetaminophen/ Hydrocodone Bitart (Lortab 5/325) 1 tab PRN Q6HRS PRN PO MODERATE PAIN Last administered on 09/30/17 08:41; Start 09/20/17 at 22:00 Acetaminophen/ Hydrocodone Bitart (Lortab 5/325) 2 tab PRN Q6HRS PRN PO SEVERE PAIN Last administered on 10/01/17 05:15; Start 09/20/17 at 22:00 Lidocaine (Lidoderm) 1 patch DAILY TP Last administered on 10/01/17 09:38; Start 09/21/17 at 09:00 Multivitamins/ Calcium (Thera-M Plus) 1 tab DAILY PO Last administered on 09:38; Start 09/21/17 at 09:00 Sodium Chloride (Saline Mist Nasal) 2 kenneth PRN Q2HR PRN NS Nasal Congestion Last administered on 09/21/17 20:49; Start 09/20/17 at 22:00 Tramadol HCl (Ultram) 50 mg PRN Q6HRS PRN PO PAIN Last administered on 21:06; Start 09/20/17 at 22:00 Lactulose (Lactulose) 10 gm PRN QID PRN PO CONSTIPATION; Start 09/20/17 at 22: 15 Cetirizine HCl (ZyrTEC) 10 mg DAILY PO Last administered on 10/01/17 09:38; Start 09/21/17 at 09:00 Non-Formulary Medication (Menthol (Biofreeze)) 1 kenneth PRN TID PRN TP MUSCLE PAIN ; Start 09/20/17 at 22:00; Status UNV Thiamine HCl (Vitamin B-1) 100 mg BID PO Last administered on 10/01/17 19:08; Start 09/21/17 at 09:00 Miscellaneous (Lidoderm Patch Removal) 1 ea QHS MC Last administered on 19:07; Start 09/20/17 at 21:00 Quetiapine Fumarate (SEROquel) 25 mg BID92 PO Last administered on 10/01/17 13 :26; Start 09/22/17 at 09:00 Quetiapine Fumarate (SEROquel) 50 mg QHS PO Last administered on 10/01/17 19: 08; Start 09/21/17 at 21:00 Sertraline HCl (Zoloft) 25 mg DAILY PO Last administered on 09/26/17 10:03; Start 09/24/17 at 09:00; Stop 09/27/17 at 08:59; Status DC Sertraline HCl (Zoloft) 50 mg DAILY PO Last administered on 09/29/17at 08:41; Start 09/27/17 at 09:00; Stop 09/29/17 at 16:07; Status DC Vitamin D (Vitamin D3) 50,000 unit WEEKLY PO Last administered on 10/01/17 09: 38; Start 09/24/17 at 20:00 Gabapentin (Neurontin) 100 mg TID PO Last administered on 10/01/17 19:07; Start 09/24/17 at 21:00 Buspirone HCl (Buspar) 5 mg BID@0900,1300 PO Last administered on 09/26/17 10: 05; Start 09/26/17 at 09:00; Stop 09/26/17 at 11:29; Status DC Cyanocobalamin (Vitamin B-12) 1,000 mcg QMONTH IM Last administered on at 10:05; Start 09/26/17 at 09:00 Buspirone HCl (Buspar) 5 mg TID@0900,1300,1500 PO Last administered on at 12:46; Start 09/26/17 at 13:00; Stop 09/26/17 at 13:00; Status DC Buspirone HCl (Buspar) 5 mg TID@0900,1300,1700 PO Last administered on at 16:53; Start 09/26/17 at 17:00 Mirtazapine (Remeron) 7.5 mg QHS PO Last administered on 10/01/17at 19:07; Start 09/27/17 at 21:00 Sertraline HCl (Zoloft) 75 mg DAILY PO Last administered on 10/01/17at 09:39; Start 09/30/17 at 09:00 Active Scripts Active Reported Claritin (Loratadine) 10 Mg Tablet 10 Mg PO DAILY [place] (Sodium Chloride) 44 Ml [place] 1 [place] NS PRN Q2HR PRN Fluticasone Propionate Nasal [place] (Fluticasone Propionate) 16 Gm [place].susp 2 [place] NS BID Benadryl (Diphenhydramine Hcl) 25 Mg Capsule 25 Mg PO PRN BID PRN Ultram (Tramadol HCl) 50 Mg Tablet 50 Mg PO PRN Q6HRS PRN Ativan (Lorazepam) 0.5 Mg Tablet 0.5 Mg PO PRN Q4HRS PRN Seroquel (Quetiapine Fumarate) 25 Mg Tablet 25 Mg PO TID Calcium Carbonate 500 Mg Tablet 500 Mg PO PRN QID PRN Biofreeze (Menthol) 118 Ml Gel..ml. 1 Kenneth TP PRN TID PRN Lactulose 10 Gm/15 Ml Solution 10 Gm PO PRN QID PRN Vitamin B-1 (Thiamine Mononitrate) 100 Mg Tablet 100 Mg PO BID Thera M Plus Tablet (Multivits,Ca,Minerals/Iron/FA) 1 Each Tablet 1 Tab PO DAILY Lidocaine 1 Each Adh..patch 1 Patch TP DAILY [place] 5-325 Tablet (Hydrocodone Bit/Acetaminophen) 1 Each Tablet 2 Tab PO PRN Q6HRS PRN [place] 5-325 Tablet (Hydrocodone Bit/Acetaminophen) 1 Each Tablet 1 Tab PO PRN Q6HRS PRN Folic Acid 1 Mg Tablet 1 Mg PO DAILY I have reviewed the current psychotropics carefully including drug interactions. Risk benefit ratio favors no change other than as noted in my dictated progress note. Diagnosis: Problems: (1) Depression (2) Alcohol-induced persisting dementia (3) Alcohol dependence (4) Anxiety disorder (5) Impulse control disorder (6) Major depressive disorder, recurrent episode DAVID SWAN MD Oct 01, 2017 20:52
--- NOTE | 2017-10-02 00:45 | PN ---
DATE: 09/30/2017 This is late entry of 09/30/2017, covers elements not covered in my initial note of 09/30/2017. SUBJECTIVE: I met with the patient evening of 09/30/2017. The patient slept 5 hours previous evening, somewhat forgetful for short term events, calm, compliant, less demanding, less medication seeking per nursing report, frequently wanting something for pain, however. REVIEW OF SYSTEMS: No CV, , pulmonary, eye system symptoms on review. MENTAL STATUS EXAM: Oriented to herself and situation. Speech coherent, has some latency. Abstraction fair, computation impaired, language function intact. Mood and affect showing improvement, less labile. LABORATORY DATA: Reviewed. 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 PLAN: Continue psychotropics mentioned in my initial note. MAN Dannielle SWAN MD DR: KATHERINE/mauro JOB#: [id number] / [id number]
[2017-10-02] MEDS: HYDROcodone/APAP 5/325MG 1 TAB TABLET PO PRN ×2 (05:58→19:33)
[2017-10-02 06:31] VITALS: BP 108/67
[2017-10-02] MEDS: CETIRIZINE HCL 10 MG TABLET PO SCH (08:53)
[2017-10-02] MEDS: FOLIC ACID 1 MG TABLET PO SCH (08:53)
[2017-10-02] MEDS: busPIRone 5 MG TABLET. PO SCH ×3 (08:54→16:54)
[2017-10-02] MEDS: QUEtiapine 25 MG TABLET. PO SCH ×2 (08:54→14:00)
[2017-10-02] MEDS: THIAMINE 100 MG TABLET. PO SCH ×2 (08:54→19:30)
[2017-10-02] MEDS: SERTRALINE 50 MG TABLET. PO SCH (08:54)
[2017-10-02] MEDS: MULTIVITAMIN with MINERAL TABLET. PO SCH (08:54)
[2017-10-02] MEDS: GABAPENTIN 100 MG CAPSULE. PO SCH ×3 (08:54→19:30)
[2017-10-02] MEDS: LIDOCAINE (700MG/PATCH) PATCH. TP SCH (08:55)
[2017-10-02] MEDS: traMADol 50 MG TABLET PO PRN ×3 (08:57→18:28)
[2017-10-02] MEDS: FLUTICASONE 50MCG/NASAL SPRAY 16GM BOTTLE. NS SCH ×2 (08:58→19:32)
[2017-10-02 15:53] VITALS: BP 112/59
[2017-10-02] MEDS: QUEtiapine 50 MG TABLET. PO SCH (19:30)
[2017-10-02] MEDS: MIRTAZAPINE 7.5 MG TABLET. PO SCH (19:30)
--- NOTE | 2017-10-02 20:31 | PDOC ---
Exam Note: Brandon Note: Please also refer to the separate dictated note~for this date of service dictated separately.~Patient seen individually. Discussed the patient with Nursing staff reviewed the chart.~Reviewed interim history and current functioning. Reviewed vital signs,~Labs/ Radiology~and current medications noted below. Continue current treatment with the changes noted in the dictated addendum note Assessment: Vital Signs: Vital Signs Date Time Temp Pulse Resp B/P (MAP) Pulse Ox O2 Delivery O2 Flow Rate FiO2 10/02/17 19:33 20 97 Room Air 10/02/17 15:53 98.4 99 112/59 (76) I&O Intake and Output 10/02/17 07:00 Intake Total 1680 ml Balance 1680 ml Intake Oral 1680 ml Current Medications: Meds: Current Medications Lorazepam (Ativan) 2 mg 1X ONCE IV Last administered on 09/20/17at 20:00; Start 09/20/17 at 20:00; Stop 09/20/17 at 20:01; Status DC Oxycodone/ Acetaminophen (Percocet 7.5/ 325) 1 tab STK-MED ONCE .ROUTE ; Start 09/20/17 at 19:44; Stop 09/20/17 at 19:45; Status DC Oxycodone/ Acetaminophen (Percocet 7.5/ 325) 2 tab 1X ONCE PO Last administered on 09/20/17at 19:45; Start 09/20/17 at 20:00; Stop 09/20/17 at 20:01 ; Status DC Lactated Ringer's 1,000 ml @ 1,000 mls/hr 1X ONCE IV ; Start 09/20/17 at 21:00 ; Stop 09/20/17 at 21:59; Status DC Acetaminophen (Tylenol) 650 mg PRN Q6HRS PRN PO PAIN / TEMP Last administered on 09/30/17at 04:51; Start 09/20/17 at 22:00 Multi-Ingredient Ointment (Analgesic [place]) 1 kenneth PRN QID PRN TP MUSCLE PAIN; Start 09/20/17 at 22:00 Al Hydroxide/Mg Hydroxide (Mylanta Plus Xs) 15 ml PRN AFTMEALHC PRN PO DYSPEPSIA Last administered on 09/21/17at 01:24; Start 09/20/17 at 22:00 Magnesium Hydroxide (Milk Of Magnesia) 2,400 mg PRN QHS PRN PO CONSTIPATION; Start 09/20/17 at 22:00 Lorazepam (Ativan) 0.5 mg PRN Q4HRS PRN PO ANXIETY / AGITATION Last administered on 09/22/17 19:21; Start 09/20/17 at 22:00 Quetiapine Fumarate (SEROquel) 25 mg TID PO Last administered on 09/21/17 14: 08; Start 09/20/17 at 22:30; Stop 09/21/17 at 18:38; Status DC Calcium Carbonate/ Glycine (Tums) 500 mg PRN QID PRN PO DYSPEPSIA; Start at 22:00 Diphenhydramine HCl (Benadryl) 25 mg PRN BID PRN PO ALLERGIES Last administered on 09/29/17 21:00; Start 09/20/17 at 22:00 Fluticasone Propionate (Flonase) 2 spray BID NS Last administered on 10/02/17 19:32; Start 09/21/17 at 09:00 Folic Acid (Folic Acid) 1 mg DAILY PO Last administered on 10/02/17 08:53; Start 09/21/17 at 09:00 Acetaminophen/ Hydrocodone Bitart (Lortab 5/325) 1 tab PRN Q6HRS PRN PO MODERATE PAIN Last administered on 10/02/17 19:33; Start 09/20/17 at 22:00 Acetaminophen/ Hydrocodone Bitart (Lortab 5/325) 2 tab PRN Q6HRS PRN PO SEVERE PAIN Last administered on 10/02/17 05:58; Start 09/20/17 at 22:00 Lidocaine (Lidoderm) 1 patch DAILY TP Last administered on 10/02/17 08:55; Start 09/21/17 at 09:00 Multivitamins/ Calcium (Thera-M Plus) 1 tab DAILY PO Last administered on 08:54; Start 09/21/17 at 09:00 Sodium Chloride (Saline Mist Nasal) 2 kenneth PRN Q2HR PRN NS Nasal Congestion Last administered on 09/21/17 20:49; Start 09/20/17 at 22:00 Tramadol HCl (Ultram) 50 mg PRN Q6HRS PRN PO PAIN Last administered on 15:39; Start 09/20/17 at 22:00 Lactulose (Lactulose) 10 gm PRN QID PRN PO CONSTIPATION; Start 09/20/17 at 22: 15 Cetirizine HCl (ZyrTEC) 10 mg DAILY PO Last administered on 10/02/17 08:53; Start 09/21/17 at 09:00 Non-Formulary Medication (Menthol (Biofreeze)) 1 kenneth PRN TID PRN TP MUSCLE PAIN ; Start 09/20/17 at 22:00; Status UNV Thiamine HCl (Vitamin B-1) 100 mg BID PO Last administered on 10/02/17 19:30; Start 09/21/17 at 09:00 Miscellaneous (Lidoderm Patch Removal) 1 ea QHS MC Last administered on 19:07; Start 09/20/17 at 21:00 Quetiapine Fumarate (SEROquel) 25 mg BID92 PO Last administered on 10/02/17 14 :00; Start 09/22/17 at 09:00 Quetiapine Fumarate (SEROquel) 50 mg QHS PO Last administered on 10/02/17 19: 30; Start 09/21/17 at 21:00 Sertraline HCl (Zoloft) 25 mg DAILY PO Last administered on 09/26/17 10:03; Start 09/24/17 at 09:00; Stop 09/27/17 at 08:59; Status DC Sertraline HCl (Zoloft) 50 mg DAILY PO Last administered on 09/29/17 08:41; Start 09/27/17 at 09:00; Stop 09/29/17 at 16:07; Status DC Vitamin D (Vitamin D3) 50,000 unit WEEKLY PO Last administered on 10/01/17 09: 38; Start 09/24/17 at 20:00 Gabapentin (Neurontin) 100 mg TID PO Last administered on 10/02/17 19:30; Start 09/24/17 at 21:00 Buspirone HCl (Buspar) 5 mg BID@0900,1300 PO Last administered on 09/26/17at 10: 05; Start 09/26/17 at 09:00; Stop 09/26/17 at 11:29; Status DC Cyanocobalamin (Vitamin B-12) 1,000 mcg QMONTH IM Last administered on at 10:05; Start 09/26/17 at 09:00 Buspirone HCl (Buspar) 5 mg TID@0900,1300,1500 PO Last administered on at 12:46; Start 09/26/17 at 13:00; Stop 09/26/17 at 13:00; Status DC Buspirone HCl (Buspar) 5 mg TID@0900,1300,1700 PO Last administered on at 16:54; Start 09/26/17 at 17:00 Mirtazapine (Remeron) 7.5 mg QHS PO Last administered on 10/02/17 19:30; Start 09/27/17 at 21:00 Sertraline HCl (Zoloft) 75 mg DAILY PO Last administered on 10/02/17 08:54; Start 09/30/17 at 09:00 Active Scripts Active Reported Claritin (Loratadine) 10 Mg Tablet 10 Mg PO DAILY [place] (Sodium Chloride) 44 Ml [place] 1 [place] NS PRN Q2HR PRN Fluticasone Propionate Nasal [place] (Fluticasone Propionate) 16 Gm [place].susp 2 [place] NS BID Benadryl (Diphenhydramine Hcl) 25 Mg Capsule 25 Mg PO PRN BID PRN Ultram (Tramadol HCl) 50 Mg Tablet 50 Mg PO PRN Q6HRS PRN Ativan (Lorazepam) 0.5 Mg Tablet 0.5 Mg PO PRN Q4HRS PRN Seroquel (Quetiapine Fumarate) 25 Mg Tablet 25 Mg PO TID Calcium Carbonate 500 Mg Tablet 500 Mg PO PRN QID PRN Biofreeze (Menthol) 118 Ml Gel..ml. 1 [place] TP PRN TID PRN Lactulose 10 Gm/15 Ml Solution 10 Gm PO PRN QID PRN Vitamin B-1 (Thiamine Mononitrate) 100 Mg Tablet 100 Mg PO BID Thera M Plus Tablet (Multivits,Ca,Minerals/Iron/FA) 1 Each Tablet 1 Tab PO DAILY Lidocaine 1 Each Adh..patch 1 Patch TP DAILY [place] 5-325 Tablet (Hydrocodone Bit/Acetaminophen) 1 Each Tablet 2 Tab PO PRN Q6HRS PRN [place] 5-325 Tablet (Hydrocodone Bit/Acetaminophen) 1 Each Tablet 1 Tab PO PRN Q6HRS PRN Folic Acid 1 Mg Tablet 1 Mg PO DAILY I have reviewed the current psychotropics carefully including drug interactions. Risk benefit ratio favors no change other than as noted in my dictated progress note. Diagnosis: Problems: (1) Depression (2) Alcohol-induced persisting dementia (3) Alcohol dependence (4) Anxiety disorder (5) Impulse control disorder (6) Major depressive disorder, recurrent episode DAVID SWAN MD Oct 02, 2017 20:31
[2017-10-02] MEDS: PATCH REMOVAL. MC SCH (20:37)
--- NOTE | 2017-10-03 05:43 | PN ---
DATE: 10/01/2017 This late entry 10/01/2017 covers elements not covered in my initial note 10/01/2017. SUBJECTIVE: I met with the patient in the evening. Per nursing report, the patient continues to have some short-term memory deficits, gets anxious, irritable at times, but better than before. She slept 7-3/4 hours previous evening. Had received a telephone call from Social Service staff earlier in the day, indicating whether her power of finance attorney could be activated for her brother. I addressed this at some length with the patient. She states she dearly loves and trusts her brother and recognized that she is unable to make decisions about her finances all by herself and needs assistance. She said she had considered this even before she had any memory loss and decided her brother was more than capable of helping her with this and she would like this instituted now. We will go ahead and do this. At times, she gets somewhat loud, but redirects. REVIEW OF SYSTEMS: No CV, , pulmonary, eye system symptoms on review. MENTAL STATUS EXAM: Oriented to herself and situation. Speech is coherent, abstraction fair, computation impaired, language function intact, attention span short. Mood and affect still somewhat anxious, labile, but improved. LABORATORY DATA: Reviewed. 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 PLAN: Continue current psychotropics, may need to increase Zoloft gradually, but for now we will maintain 75 mg a day. Carefully reviewed drug interactions, risk/benefit ratio. DAVID SWAN MD DR: KATHERINE/mauro JOB#: [id number] / [id number]
[2017-10-03] MEDS: ACETAMINOPHEN 325 MG TABLET PO PRN ×2 (06:20→13:38)
[2017-10-03 06:22] VITALS: BP 116/67
[2017-10-03 07:39] LABS: BASO % 1 % (0-3); EOS # 0.2 x10^3/uL (0.0-0.7); EOS % 5 % (0-3); HEMATOCRIT 30.3 % (36.0-47.0); HEMOGLOBIN 10.1 g/dL (12.0-15.5); LYMPH # 1.3 x10^3/uL (1.0-4.8); LYMPH % 32 % (24-48); MEAN CORPUSCULAR HEMOGLOBIN 32 pg (25-35); MEAN CORPUSCULAR HGB CONC 33 g/dL (31-37); MEAN CORPUSCULAR VOLUME 95 fL (79-100); MONO # 0.7 x10^3/uL (0.0-1.1); MONO % 17 % (0-9); NEUT # 1.9 x10^3uL (1.8-7.7); NEUT % 46 % (31-73); PLATELET COUNT 386 x10^3/uL (140-400); RED BLOOD COUNT 3.18 x10^6/uL (3.50-5.40); RED CELL DISTRIBUTION WIDTH 14.3 % (11.5-14.5); WHITE BLOOD COUNT 4.2 x10^3/uL (4.0-11.0)
[2017-10-03 07:55] LABS: ALBUMIN 2.9 g/dL (3.4-5.0); ALBUMIN/GLOBULIN RATIO 0.8 (1.0-1.7); CALCIUM 9.2 mg/dL (8.5-10.1); CREATININE 0.8 mg/dL (0.6-1.0); GFR 70.9; MAGNESIUM 1.9 mg/dL (1.8-2.4); POTASSIUM 4.4 mmol/L (3.5-5.1); TOTAL BILIRUBIN 0.2 mg/dL (0.2-1.0); TOTAL PROTEIN 6.7 g/dL (6.4-8.2)
[2017-10-03] MEDS: FOLIC ACID 1 MG TABLET PO SCH (09:27)
[2017-10-03] MEDS: CETIRIZINE HCL 10 MG TABLET PO SCH (09:27)
[2017-10-03] MEDS: SERTRALINE 50 MG TABLET. PO SCH (09:28)
[2017-10-03] MEDS: QUEtiapine 25 MG TABLET. PO SCH ×2 (09:28→13:37)
[2017-10-03] MEDS: MULTIVITAMIN with MINERAL TABLET. PO SCH (09:28)
[2017-10-03] MEDS: busPIRone 5 MG TABLET. PO SCH ×3 (09:28→17:19)
[2017-10-03] MEDS: GABAPENTIN 100 MG CAPSULE. PO SCH ×3 (09:28→20:39)
[2017-10-03] MEDS: LIDOCAINE (700MG/PATCH) PATCH. TP SCH (09:28)
[2017-10-03] MEDS: THIAMINE 100 MG TABLET. PO SCH ×2 (09:28→20:39)
[2017-10-03] MEDS: FLUTICASONE 50MCG/NASAL SPRAY 16GM BOTTLE. NS SCH ×2 (09:29→20:40)
[2017-10-03] MEDS: traMADol 50 MG TABLET PO PRN ×2 (09:53→17:19)
[2017-10-03 16:37] VITALS: BP 115/66
[2017-10-03] MEDS: QUEtiapine 50 MG TABLET. PO SCH (20:39)
[2017-10-03] MEDS: HYDROcodone/APAP 5/325MG 1 TAB TABLET PO PRN (20:39)
[2017-10-03] MEDS: MIRTAZAPINE 7.5 MG TABLET. PO SCH (20:39)
[2017-10-03] MEDS: PATCH REMOVAL. MC SCH (20:39)
--- NOTE | 2017-10-03 21:16 | PDOC ---
Exam Note: Brandon Note: Please also refer to the separate dictated note~for this date of service dictated separately.~Patient seen individually. Discussed the patient with Nursing staff reviewed the chart.~Reviewed interim history and current functioning. Reviewed vital signs,~Labs/ Radiology~and current medications noted below. Continue current treatment with the changes noted in the dictated addendum note Assessment: Vital Signs: Vital Signs Date Time Temp Pulse Resp B/P (MAP) Pulse Ox O2 Delivery O2 Flow Rate FiO2 10/03/17 20:39 20 Room Air 10/03/17 19:13 100 10/03/17 16:37 98.0 94 115/66 (82) I&O Intake and Output 10/03/17 07:00 Intake Total 1200 ml Balance 1200 ml Intake Oral 1200 ml # Voids 1 Labs: Laboratory Tests Test 10/03/17 07:27 White Blood Count 4.2 x10^3/uL (4.0-11.0) Red Blood Count 3.18 x10^6/uL (3.50-5.40) L Hemoglobin 10.1 g/dL (12.0-15.5) L Hematocrit 30.3 % (36.0-47.0) L Mean Corpuscular Volume 95 fL (79-100) Mean Corpuscular Hemoglobin 32 pg (25-35) Mean Corpuscular Hemoglobin Concent 33 g/dL (31-37) Red Cell Distribution Width 14.3 % (11.5-14.5) Platelet Count 386 x10^3/uL (140-400) Neutrophils (%) (Auto) 46 % (31-73) Lymphocytes (%) (Auto) 32 % (24-48) Monocytes (%) (Auto) 17 % (0-9) H Eosinophils (%) (Auto) 5 % (0-3) H Basophils (%) (Auto) 1 % (0-3) Neutrophils # (Auto) 1.9 x10^3uL (1.8-7.7) Lymphocytes # (Auto) 1.3 x10^3/uL (1.0-4.8) Monocytes # (Auto) 0.7 x10^3/uL (0.0-1.1) Eosinophils # (Auto) 0.2 x10^3/uL (0.0-0.7) Basophils # (Auto) 0.0 x10^3/uL (0.0-0.2) Sodium Level 140 mmol/L (136-145) Potassium Level 4.4 mmol/L (3.5-5.1) Chloride Level 104 mmol/L (98-107) Carbon Dioxide Level 30 mmol/L (21-32) Anion Gap 6 (6-14) Blood Urea Nitrogen 15 mg/dL (7-20) Creatinine 0.8 mg/dL (0.6-1.0) Estimated GFR (Cockcroft-Gault) 70.9 BUN/Creatinine Ratio 19 (6-20) Glucose Level 77 mg/dL (70-99) Calcium Level 9.2 mg/dL (8.5-10.1) Magnesium Level 1.9 mg/dL (1.8-2.4) Total Bilirubin 0.2 mg/dL (0.2-1.0) Aspartate Amino Transferase (AST) 15 U/L (15-37) Alanine Aminotransferase (ALT) 14 U/L (14-59) Alkaline Phosphatase 93 U/L (46-116) Total Protein 6.7 g/dL (6.4-8.2) Albumin 2.9 g/dL (3.4-5.0) L Albumin/Globulin Ratio 0.8 (1.0-1.7) L Current Medications: Meds: Current Medications Lorazepam (Ativan) 2 mg 1X ONCE IV Last administered on 09/20/17at 20:00; Start 09/20/17 at 20:00; Stop 09/20/17 at 20:01; Status DC Oxycodone/ Acetaminophen (Percocet 7.5/ 325) 1 tab STK-MED ONCE .ROUTE ; Start 09/20/17 at 19:44; Stop 09/20/17 at 19:45; Status DC Oxycodone/ Acetaminophen (Percocet 7.5/ 325) 2 tab 1X ONCE PO Last administered on 09/20/17at 19:45; Start 09/20/17 at 20:00; Stop 09/20/17 at 20:01 ; Status DC Lactated Ringer's 1,000 ml @ 1,000 mls/hr 1X ONCE IV ; Start 09/20/17 at 21:00 ; Stop 09/20/17 at 21:59; Status DC Acetaminophen (Tylenol) 650 mg PRN Q6HRS PRN PO PAIN / TEMP Last administered on 10/03/17 13:38; Start 09/20/17 at 22:00 Multi-Ingredient Ointment (Analgesic [place]) 1 kenneth PRN QID PRN TP MUSCLE PAIN; Start 09/20/17 at 22:00 Al Hydroxide/Mg Hydroxide (Mylanta Plus Xs) 15 ml PRN AFTMEALHC PRN PO DYSPEPSIA Last administered on 09/21/17 01:24; Start 09/20/17 at 22:00 Magnesium Hydroxide (Milk Of Magnesia) 2,400 mg PRN QHS PRN PO CONSTIPATION; Start 09/20/17 at 22:00 Lorazepam (Ativan) 0.5 mg PRN Q4HRS PRN PO ANXIETY / AGITATION Last administered on 09/22/17 19:21; Start 09/20/17 at 22:00 Quetiapine Fumarate (SEROquel) 25 mg TID PO Last administered on 09/21/17 14: 08; Start 09/20/17 at 22:30; Stop 09/21/17 at 18:38; Status DC Calcium Carbonate/ Glycine (Tums) 500 mg PRN QID PRN PO DYSPEPSIA; Start at 22:00 Diphenhydramine HCl (Benadryl) 25 mg PRN BID PRN PO ALLERGIES Last administered on 09/29/17 21:00; Start 09/20/17 at 22:00 Fluticasone Propionate (Flonase) 2 spray BID NS Last administered on 10/03/17 20:40; Start 09/21/17 at 09:00 Folic Acid (Folic Acid) 1 mg DAILY PO Last administered on 10/03/17 09:27; Start 09/21/17 at 09:00 Acetaminophen/ Hydrocodone Bitart (Lortab 5/325) 1 tab PRN Q6HRS PRN PO MODERATE PAIN Last administered on 10/03/17 20:39; Start 09/20/17 at 22:00 Acetaminophen/ Hydrocodone Bitart (Lortab 5/325) 2 tab PRN Q6HRS PRN PO SEVERE PAIN Last administered on 10/02/17 05:58; Start 09/20/17 at 22:00 Lidocaine (Lidoderm) 1 patch DAILY TP Last administered on 10/03/17 09:28; Start 09/21/17 at 09:00 Multivitamins/ Calcium (Thera-M Plus) 1 tab DAILY PO Last administered on 09:28; Start 09/21/17 at 09:00 Sodium Chloride (Saline Mist Nasal) 2 kenneth PRN Q2HR PRN NS Nasal Congestion Last administered on 09/21/17 20:49; Start 09/20/17 at 22:00 Tramadol HCl (Ultram) 50 mg PRN Q6HRS PRN PO PAIN Last administered on 17:19; Start 09/20/17 at 22:00 Lactulose (Lactulose) 10 gm PRN QID PRN PO CONSTIPATION; Start 09/20/17 at 22: 15 Cetirizine HCl (ZyrTEC) 10 mg DAILY PO Last administered on 10/03/17 09:27; Start 09/21/17 at 09:00 Non-Formulary Medication (Menthol (Biofreeze)) 1 kenneth PRN TID PRN TP MUSCLE PAIN ; Start 09/20/17 at 22:00; Status UNV Thiamine HCl (Vitamin B-1) 100 mg BID PO Last administered on 10/03/17 20:39; Start 09/21/17 at 09:00 Miscellaneous (Lidoderm Patch Removal) 1 ea QHS MC Last administered on 20:39; Start 09/20/17 at 21:00 Quetiapine Fumarate (SEROquel) 25 mg BID92 PO Last administered on 10/03/17 13 :37; Start 09/22/17 at 09:00 Quetiapine Fumarate (SEROquel) 50 mg QHS PO Last administered on 10/03/17 20: 39; Start 09/21/17 at 21:00 Sertraline HCl (Zoloft) 25 mg DAILY PO Last administered on 09/26/17 10:03; Start 09/24/17 at 09:00; Stop 09/27/17 at 08:59; Status DC Sertraline HCl (Zoloft) 50 mg DAILY PO Last administered on 09/29/17 08:41; Start 09/27/17 at 09:00; Stop 09/29/17 at 16:07; Status DC Vitamin D (Vitamin D3) 50,000 unit WEEKLY PO Last administered on 10/01/17 09: 38; Start 09/24/17 at 20:00 Gabapentin (Neurontin) 100 mg TID PO Last administered on 10/03/17at 20:39; Start 09/24/17 at 21:00 Buspirone HCl (Buspar) 5 mg BID@0900,1300 PO Last administered on 09/26/17at 10: 05; Start 09/26/17 at 09:00; Stop 09/26/17 at 11:29; Status DC Cyanocobalamin (Vitamin B-12) 1,000 mcg QMONTH IM Last administered on at 10:05; Start 09/26/17 at 09:00 Buspirone HCl (Buspar) 5 mg TID@0900,1300,1500 PO Last administered on at 12:46; Start 09/26/17 at 13:00; Stop 09/26/17 at 13:00; Status DC Buspirone HCl (Buspar) 5 mg TID@0900,1300,1700 PO Last administered on at 17:19; Start 09/26/17 at 17:00 Mirtazapine (Remeron) 7.5 mg QHS PO Last administered on 10/03/17at 20:39; Start 09/27/17 at 21:00 Sertraline HCl (Zoloft) 75 mg DAILY PO Last administered on 10/03/17 09:28; Start 09/30/17 at 09:00 Active Scripts Active Reported Claritin (Loratadine) 10 Mg Tablet 10 Mg PO DAILY [place] (Sodium Chloride) 44 Ml [place] 1 [place] NS PRN Q2HR PRN Fluticasone Propionate Nasal [place] (Fluticasone Propionate) 16 Gm [place].susp 2 [place] NS BID Benadryl (Diphenhydramine Hcl) 25 Mg Capsule 25 Mg PO PRN BID PRN Ultram (Tramadol HCl) 50 Mg Tablet 50 Mg PO PRN Q6HRS PRN Ativan (Lorazepam) 0.5 Mg Tablet 0.5 Mg PO PRN Q4HRS PRN Seroquel (Quetiapine Fumarate) 25 Mg Tablet 25 Mg PO TID Calcium Carbonate 500 Mg Tablet 500 Mg PO PRN QID PRN Biofreeze (Menthol) 118 Ml Gel..ml. 1 Kenneth TP PRN TID PRN Lactulose 10 Gm/15 Ml Solution 10 Gm PO PRN QID PRN Vitamin B-1 (Thiamine Mononitrate) 100 Mg Tablet 100 Mg PO BID Thera M Plus Tablet (Multivits,Ca,Minerals/Iron/FA) 1 Each Tablet 1 Tab PO DAILY Lidocaine 1 Each Adh..patch 1 Patch TP DAILY [place] 5-325 Tablet (Hydrocodone Bit/Acetaminophen) 1 Each Tablet 2 Tab PO PRN Q6HRS PRN [place] 5-325 Tablet (Hydrocodone Bit/Acetaminophen) 1 Each Tablet 1 Tab PO PRN Q6HRS PRN Folic Acid 1 Mg Tablet 1 Mg PO DAILY I have reviewed the current psychotropics carefully including drug interactions. Risk benefit ratio favors no change other than as noted in my dictated progress note. Diagnosis: Problems: (1) Depression (2) Alcohol-induced persisting dementia (3) Alcohol dependence (4) Anxiety disorder (5) Impulse control disorder (6) Major depressive disorder, recurrent episode DAVID SWAN MD Oct 03, 2017 21:16
[2017-10-04] MEDS: traMADol 50 MG TABLET PO PRN (00:44)
[2017-10-04] MEDS: HYDROcodone/APAP 5/325MG 1 TAB TABLET PO PRN ×3 (04:58→19:45)
[2017-10-04 06:02] VITALS: BP 131/53
[2017-10-04] MEDS: QUEtiapine 25 MG TABLET. PO SCH ×2 (09:58→14:41)
[2017-10-04] MEDS: MULTIVITAMIN with MINERAL TABLET. PO SCH (09:58)
[2017-10-04] MEDS: CETIRIZINE HCL 10 MG TABLET PO SCH (09:58)
[2017-10-04] MEDS: GABAPENTIN 100 MG CAPSULE. PO SCH ×3 (09:58→19:26)
[2017-10-04] MEDS: FOLIC ACID 1 MG TABLET PO SCH (09:58)
[2017-10-04] MEDS: THIAMINE 100 MG TABLET. PO SCH ×2 (09:59→19:26)
[2017-10-04] MEDS: busPIRone 5 MG TABLET. PO SCH ×3 (09:59→16:56)
[2017-10-04] MEDS: SERTRALINE 50 MG TABLET. PO SCH (09:59)
[2017-10-04] MEDS: LIDOCAINE (700MG/PATCH) PATCH. TP SCH (10:00)
[2017-10-04] MEDS: FLUTICASONE 50MCG/NASAL SPRAY 16GM BOTTLE. NS SCH ×2 (10:01→19:28)
[2017-10-04] MEDS: ACETAMINOPHEN 325 MG TABLET PO PRN (10:48)
[2017-10-04 16:32] VITALS: BP 112/60
[2017-10-04] MEDS: SODIUM CHLORIDE 0.65% NASAL SPRAY 45ML BOTTLE. NS PRN (16:44)
[2017-10-04] MEDS: MIRTAZAPINE 7.5 MG TABLET. PO SCH (19:26)
[2017-10-04] MEDS: QUEtiapine 50 MG TABLET. PO SCH (19:26)
[2017-10-04] MEDS: PATCH REMOVAL. MC SCH (19:28)
[2017-10-04] MEDS: LORazepam 0.5 MG TABLET PO PRN (20:39)
--- NOTE | 2017-10-04 23:03 | PDOC ---
Exam Note: Brandon Note: Please also refer to the separate dictated note~for this date of service dictated separately.~Patient seen individually. Discussed the patient with Nursing staff reviewed the chart.~Reviewed interim history and current functioning. Reviewed vital signs,~Labs/ Radiology~and current medications noted below. Continue current treatment with the changes noted in the dictated addendum note Assessment: Vital Signs: Vital Signs Date Time Temp Pulse Resp B/P (MAP) Pulse Ox O2 Delivery O2 Flow Rate FiO2 10/04/17 19:45 20 Room Air 10/04/17 16:43 97 10/04/17 16:32 98.1 101 112/60 (77) I&O Intake and Output 10/04/17 07:00 Intake Total 960 ml Balance 960 ml Intake Oral 960 ml # Voids 1 Current Medications: Meds: Current Medications Lorazepam (Ativan) 2 mg 1X ONCE IV Last administered on 09/20/17at 20:00; Start 09/20/17 at 20:00; Stop 09/20/17 at 20:01; Status DC Oxycodone/ Acetaminophen (Percocet 7.5/ 325) 1 tab STK-MED ONCE .ROUTE ; Start 09/20/17 at 19:44; Stop 09/20/17 at 19:45; Status DC Oxycodone/ Acetaminophen (Percocet 7.5/ 325) 2 tab 1X ONCE PO Last administered on 09/20/17at 19:45; Start 09/20/17 at 20:00; Stop 09/20/17 at 20:01 ; Status DC Lactated Ringer's 1,000 ml @ 1,000 mls/hr 1X ONCE IV ; Start 09/20/17 at 21:00 ; Stop 09/20/17 at 21:59; Status DC Acetaminophen (Tylenol) 650 mg PRN Q6HRS PRN PO PAIN / TEMP Last administered on 10/04/17at 10:48; Start 09/20/17 at 22:00 Multi-Ingredient Ointment (Analgesic [place]) 1 kenneth PRN QID PRN TP MUSCLE PAIN; Start 09/20/17 at 22:00 Al Hydroxide/Mg Hydroxide (Mylanta Plus Xs) 15 ml PRN AFTMEALHC PRN PO DYSPEPSIA Last administered on 09/21/17at 01:24; Start 09/20/17 at 22:00 Magnesium Hydroxide (Milk Of Magnesia) 2,400 mg PRN QHS PRN PO CONSTIPATION; Start 09/20/17 at 22:00 Lorazepam (Ativan) 0.5 mg PRN Q4HRS PRN PO ANXIETY / AGITATION Last administered on 10/04/17 20:39; Start 09/20/17 at 22:00 Quetiapine Fumarate (SEROquel) 25 mg TID PO Last administered on 09/21/17 14: 08; Start 09/20/17 at 22:30; Stop 09/21/17 at 18:38; Status DC Calcium Carbonate/ Glycine (Tums) 500 mg PRN QID PRN PO DYSPEPSIA; Start at 22:00 Diphenhydramine HCl (Benadryl) 25 mg PRN BID PRN PO ALLERGIES Last administered on 09/29/17 21:00; Start 09/20/17 at 22:00 Fluticasone Propionate (Flonase) 2 spray BID NS Last administered on 10/04/17 19:28; Start 09/21/17 at 09:00 Folic Acid (Folic Acid) 1 mg DAILY PO Last administered on 10/04/17 09:58; Start 09/21/17 at 09:00 Acetaminophen/ Hydrocodone Bitart (Lortab 5/325) 1 tab PRN Q6HRS PRN PO MODERATE PAIN Last administered on 10/04/17 19:45; Start 09/20/17 at 22:00 Acetaminophen/ Hydrocodone Bitart (Lortab 5/325) 2 tab PRN Q6HRS PRN PO SEVERE PAIN Last administered on 10/02/17 05:58; Start 09/20/17 at 22:00 Lidocaine (Lidoderm) 1 patch DAILY TP Last administered on 10/04/17 10:00; Start 09/21/17 at 09:00 Multivitamins/ Calcium (Thera-M Plus) 1 tab DAILY PO Last administered on 09:58; Start 09/21/17 at 09:00 Sodium Chloride (Saline Mist Nasal) 2 kenneth PRN Q2HR PRN NS Nasal Congestion Last administered on 10/04/17 16:44; Start 09/20/17 at 22:00 Tramadol HCl (Ultram) 50 mg PRN Q6HRS PRN PO PAIN Last administered on 00:44; Start 09/20/17 at 22:00 Lactulose (Lactulose) 10 gm PRN QID PRN PO CONSTIPATION; Start 09/20/17 at 22: 15 Cetirizine HCl (ZyrTEC) 10 mg DAILY PO Last administered on 10/04/17 09:58; Start 09/21/17 at 09:00 Non-Formulary Medication (Menthol (Biofreeze)) 1 kenneth PRN TID PRN TP MUSCLE PAIN ; Start 09/20/17 at 22:00; Status UNV Thiamine HCl (Vitamin B-1) 100 mg BID PO Last administered on 10/04/17 19:26; Start 09/21/17 at 09:00 Miscellaneous (Lidoderm Patch Removal) 1 ea QHS MC Last administered on 19:28; Start 09/20/17 at 21:00 Quetiapine Fumarate (SEROquel) 25 mg BID92 PO Last administered on 10/04/17 14 :41; Start 09/22/17 at 09:00 Quetiapine Fumarate (SEROquel) 50 mg QHS PO Last administered on 10/04/17 19: 26; Start 09/21/17 at 21:00 Sertraline HCl (Zoloft) 25 mg DAILY PO Last administered on 09/26/17 10:03; Start 09/24/17 at 09:00; Stop 09/27/17 at 08:59; Status DC Sertraline HCl (Zoloft) 50 mg DAILY PO Last administered on 09/29/17at 08:41; Start 09/27/17 at 09:00; Stop 09/29/17 at 16:07; Status DC Vitamin D (Vitamin D3) 50,000 unit WEEKLY PO Last administered on 10/01/17 09: 38; Start 09/24/17 at 20:00 Gabapentin (Neurontin) 100 mg TID PO Last administered on 10/04/17 19:26; Start 09/24/17 at 21:00 Buspirone HCl (Buspar) 5 mg BID@0900,1300 PO Last administered on 09/26/17at 10: 05; Start 09/26/17 at 09:00; Stop 09/26/17 at 11:29; Status DC Cyanocobalamin (Vitamin B-12) 1,000 mcg QMONTH IM Last administered on at 10:05; Start 09/26/17 at 09:00 Buspirone HCl (Buspar) 5 mg TID@0900,1300,1500 PO Last administered on at 12:46; Start 09/26/17 at 13:00; Stop 09/26/17 at 13:00; Status DC Buspirone HCl (Buspar) 5 mg TID@0900,1300,1700 PO Last administered on at 16:56; Start 09/26/17 at 17:00 Mirtazapine (Remeron) 7.5 mg QHS PO Last administered on 10/04/17at 19:26; Start 09/27/17 at 21:00 Sertraline HCl (Zoloft) 75 mg DAILY PO Last administered on 10/04/17at 09:59; Start 09/30/17 at 09:00; Stop 10/04/17 at 18:55; Status DC Sertraline HCl (Zoloft) 100 mg DAILY PO ; Start 10/05/17 at 09:00 Active Scripts Active Reported Claritin (Loratadine) 10 Mg Tablet 10 Mg PO DAILY [place] (Sodium Chloride) 44 Ml [place] 1 [place] NS PRN Q2HR PRN Fluticasone Propionate Nasal [place] (Fluticasone Propionate) 16 Gm [place].susp 2 [place] NS BID Benadryl (Diphenhydramine Hcl) 25 Mg Capsule 25 Mg PO PRN BID PRN Ultram (Tramadol HCl) 50 Mg Tablet 50 Mg PO PRN Q6HRS PRN Ativan (Lorazepam) 0.5 Mg Tablet 0.5 Mg PO PRN Q4HRS PRN Seroquel (Quetiapine Fumarate) 25 Mg Tablet 25 Mg PO TID Calcium Carbonate 500 Mg Tablet 500 Mg PO PRN QID PRN Biofreeze (Menthol) 118 Ml Gel..ml. 1 Kenneth TP PRN TID PRN Lactulose 10 Gm/15 Ml Solution 10 Gm PO PRN QID PRN Vitamin B-1 (Thiamine Mononitrate) 100 Mg Tablet 100 Mg PO BID Thera M Plus Tablet (Multivits,Ca,Minerals/Iron/FA) 1 Each Tablet 1 Tab PO DAILY Lidocaine 1 Each Adh..patch 1 Patch TP DAILY [place] 5-325 Tablet (Hydrocodone Bit/Acetaminophen) 1 Each Tablet 2 Tab PO PRN Q6HRS PRN [place] 5-325 Tablet (Hydrocodone Bit/Acetaminophen) 1 Each Tablet 1 Tab PO PRN Q6HRS PRN Folic Acid 1 Mg Tablet 1 Mg PO DAILY I have reviewed the current psychotropics carefully including drug interactions. Risk benefit ratio favors no change other than as noted in my dictated progress note. Diagnosis: Problems: (1) Depression (2) Alcohol-induced persisting dementia (3) Alcohol dependence (4) Anxiety disorder (5) Impulse control disorder (6) Major depressive disorder, recurrent episode DAVID SWAN MD Oct 04, 2017 23:03
[2017-10-05] MEDS: HYDROcodone/APAP 5/325MG 1 TAB TABLET PO PRN ×3 (01:22→08:27)
[2017-10-05 06:42] VITALS: BP 140/84
[2017-10-05] MEDS: THIAMINE 100 MG TABLET. PO SCH ×2 (08:21→21:16)
[2017-10-05] MEDS: busPIRone 5 MG TABLET. PO SCH ×3 (08:21→16:05)
[2017-10-05] MEDS: QUEtiapine 25 MG TABLET. PO SCH ×2 (08:22→12:38)
[2017-10-05] MEDS: FOLIC ACID 1 MG TABLET PO SCH (08:22)
[2017-10-05] MEDS: MULTIVITAMIN with MINERAL TABLET. PO SCH (08:22)
[2017-10-05] MEDS: GABAPENTIN 100 MG CAPSULE. PO SCH ×3 (08:22→21:16)
[2017-10-05] MEDS: LIDOCAINE (700MG/PATCH) PATCH. TP SCH (08:23)
[2017-10-05] MEDS: CETIRIZINE HCL 10 MG TABLET PO SCH (08:23)
[2017-10-05] MEDS: SERTRALINE 100 MG TABLET. PO SCH (08:27)
[2017-10-05] MEDS: FLUTICASONE 50MCG/NASAL SPRAY 16GM BOTTLE. NS SCH ×2 (08:28→21:16)
[2017-10-05] MEDS: traMADol 50 MG TABLET PO PRN (16:04)
[2017-10-05 17:43] VITALS: BP 97/55
--- NOTE | 2017-10-05 18:30 | PN ---
DATE: 10/02/2017 This is a late entry 08/04/2017, covers elements not covered in my initial note 08/04/2017. SUBJECTIVE: Met with the patient in the evening of 10/02/2017. Overall, the patient is doing a little better. She is still anxious at times frequently asking for pain medications, which she takes in coffee. She does have short term memory deficits. I once again discussed with her request to have her brother be her power of trademark attorney for financial purposes. She is able to understand all of this as I questioned her and wholeheartedly approves of this. REVIEW OF SYSTEMS: No CV, , pulmonary, eye system symptoms on review. MENTAL STATUS EXAM: Oriented to herself and situation. Speech coherent, abstraction fair, computation impaired, language function intact, attention span short. Mood and affect still somewhat dysphoric, sad about the loss of her and we processed this. LABORATORY DATA: Reviewed. 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 No suicidal ideation note. PLAN: Continue psychotropics mentioned in my initial note. MAN Dannielle SWAN MD DR: KATHERINE/mauro JOB#: [id number] / [id number]
[2017-10-05] MEDS: PATCH REMOVAL. MC SCH (21:00)
[2017-10-05] MEDS: QUEtiapine 50 MG TABLET. PO SCH (21:16)
[2017-10-05] MEDS: MIRTAZAPINE 7.5 MG TABLET. PO SCH (21:16)
--- NOTE | 2017-10-05 21:48 | PN ---
DATE: 10/03/2017 This late entry 10/03/2017 covers elements not covered in my initial note 10/03/2017. The patient was staffed at treatment team meeting with the entire team in the morning and seen individually in the evening. At the treatment team meeting with the entire team patient's brother, Mike attended and agreed to accept the patient's request to be the designated power of infertility nurse for finances. The patient understands this, consents to it. The patient slept 6-1/4 hours, complains of some pain, received Ultram. Appetite 100%, compliant with medications, not asking for much other than for pain medications, which she still remains somewhat obsessed with. No CV, , pulmonary, eye system symptoms on review. MENTAL STATUS EXAM: Oriented to herself and situation. Speech coherent, less pressured, abstraction fair, computation impaired, language function intact. Mood and affect showing improvement. LABORATORY DATA: Reviewed. IMPRESSION: Unchanged from initial note. PLAN: No change from my initial note. DAVID SWAN MD DR: KATHERINE/mauro JOB#: [id number] / [id number]
--- NOTE | 2017-10-05 22:37 | PDOC ---
Exam Note: Brandon Note: Please also refer to the separate dictated note~for this date of service dictated separately.~Patient seen individually. Discussed the patient with Nursing staff reviewed the chart.~Reviewed interim history and current functioning. Reviewed vital signs,~Labs/ Radiology~and current medications noted below. Continue current treatment with the changes noted in the dictated addendum note Assessment: Vital Signs: Vital Signs Date Time Temp Pulse Resp B/P (MAP) Pulse Ox O2 Delivery O2 Flow Rate FiO2 10/05/17 17:43 98.1 102 18 97/55 (69) 95 Room Air I&O Intake and Output 10/05/17 07:00 Intake Total 1920 ml Balance 1920 ml Intake Oral 1920 ml # Voids 1 Current Medications: Meds: Current Medications Lorazepam (Ativan) 2 mg 1X ONCE IV Last administered on 09/20/17at 20:00; Start 09/20/17 at 20:00; Stop 09/20/17 at 20:01; Status DC Oxycodone/ Acetaminophen (Percocet 7.5/ 325) 1 tab STK-MED ONCE .ROUTE ; Start 09/20/17 at 19:44; Stop 09/20/17 at 19:45; Status DC Oxycodone/ Acetaminophen (Percocet 7.5/ 325) 2 tab 1X ONCE PO Last administered on 09/20/17at 19:45; Start 09/20/17 at 20:00; Stop 09/20/17 at 20:01 ; Status DC Lactated Ringer's 1,000 ml @ 1,000 mls/hr 1X ONCE IV ; Start 09/20/17 at 21:00 ; Stop 09/20/17 at 21:59; Status DC Acetaminophen (Tylenol) 650 mg PRN Q6HRS PRN PO PAIN / TEMP Last administered on 10/04/17at 10:48; Start 09/20/17 at 22:00 Multi-Ingredient Ointment (Analgesic [place]) 1 kenneth PRN QID PRN TP MUSCLE PAIN; Start 09/20/17 at 22:00 Al Hydroxide/Mg Hydroxide (Mylanta Plus Xs) 15 ml PRN AFTMEALHC PRN PO DYSPEPSIA Last administered on 09/21/17at 01:24; Start 09/20/17 at 22:00 Magnesium Hydroxide (Milk Of Magnesia) 2,400 mg PRN QHS PRN PO CONSTIPATION; Start 09/20/17 at 22:00 Lorazepam (Ativan) 0.5 mg PRN Q4HRS PRN PO ANXIETY / AGITATION Last administered on 10/04/17 20:39; Start 09/20/17 at 22:00 Quetiapine Fumarate (SEROquel) 25 mg TID PO Last administered on 09/21/17 14: 08; Start 09/20/17 at 22:30; Stop 09/21/17 at 18:38; Status DC Calcium Carbonate/ Glycine (Tums) 500 mg PRN QID PRN PO DYSPEPSIA; Start at 22:00 Diphenhydramine HCl (Benadryl) 25 mg PRN BID PRN PO ALLERGIES Last administered on 09/29/17 21:00; Start 09/20/17 at 22:00 Fluticasone Propionate (Flonase) 2 spray BID NS Last administered on 10/05/17 21:16; Start 09/21/17 at 09:00 Folic Acid (Folic Acid) 1 mg DAILY PO Last administered on 10/05/17 08:22; Start 09/21/17 at 09:00 Acetaminophen/ Hydrocodone Bitart (Lortab 5/325) 1 tab PRN Q6HRS PRN PO MODERATE PAIN Last administered on 10/05/17 08:27; Start 09/20/17 at 22:00 Acetaminophen/ Hydrocodone Bitart (Lortab 5/325) 2 tab PRN Q6HRS PRN PO SEVERE PAIN Last administered on 10/05/17 08:27; Start 09/20/17 at 22:00 Lidocaine (Lidoderm) 1 patch DAILY TP Last administered on 10/05/17 08:23; Start 09/21/17 at 09:00 Multivitamins/ Calcium (Thera-M Plus) 1 tab DAILY PO Last administered on 08:22; Start 09/21/17 at 09:00 Sodium Chloride (Saline Mist Nasal) 2 kenneth PRN Q2HR PRN NS Nasal Congestion Last administered on 10/04/17 16:44; Start 09/20/17 at 22:00 Tramadol HCl (Ultram) 50 mg PRN Q6HRS PRN PO PAIN Last administered on 16:04; Start 09/20/17 at 22:00 Lactulose (Lactulose) 10 gm PRN QID PRN PO CONSTIPATION; Start 09/20/17 at 22: 15 Cetirizine HCl (ZyrTEC) 10 mg DAILY PO Last administered on 10/05/17 08:23; Start 09/21/17 at 09:00 Non-Formulary Medication (Menthol (Biofreeze)) 1 kenneth PRN TID PRN TP MUSCLE PAIN ; Start 09/20/17 at 22:00; Status UNV Thiamine HCl (Vitamin B-1) 100 mg BID PO Last administered on 10/05/17 21:16; Start 09/21/17 at 09:00 Miscellaneous (Lidoderm Patch Removal) 1 ea QHS MC Last administered on 21:00; Start 09/20/17 at 21:00 Quetiapine Fumarate (SEROquel) 25 mg BID92 PO Last administered on 10/05/17 12 :38; Start 09/22/17 at 09:00 Quetiapine Fumarate (SEROquel) 50 mg QHS PO Last administered on 10/05/17 21: 16; Start 09/21/17 at 21:00 Sertraline HCl (Zoloft) 25 mg DAILY PO Last administered on 09/26/17 10:03; Start 09/24/17 at 09:00; Stop 09/27/17 at 08:59; Status DC Sertraline HCl (Zoloft) 50 mg DAILY PO Last administered on 09/29/17 08:41; Start 09/27/17 at 09:00; Stop 09/29/17 at 16:07; Status DC Vitamin D (Vitamin D3) 50,000 unit WEEKLY PO Last administered on 10/01/17 09: 38; Start 09/24/17 at 20:00 Gabapentin (Neurontin) 100 mg TID PO Last administered on 10/05/17 21:16; Start 09/24/17 at 21:00 Buspirone HCl (Buspar) 5 mg BID@0900,1300 PO Last administered on 09/26/17at 10: 05; Start 09/26/17 at 09:00; Stop 09/26/17 at 11:29; Status DC Cyanocobalamin (Vitamin B-12) 1,000 mcg QMONTH IM Last administered on at 10:05; Start 09/26/17 at 09:00 Buspirone HCl (Buspar) 5 mg TID@0900,1300,1500 PO Last administered on at 12:46; Start 09/26/17 at 13:00; Stop 09/26/17 at 13:00; Status DC Buspirone HCl (Buspar) 5 mg TID@0900,1300,1700 PO Last administered on at 16:05; Start 09/26/17 at 17:00 Mirtazapine (Remeron) 7.5 mg QHS PO Last administered on 10/05/17at 21:16; Start 09/27/17 at 21:00 Sertraline HCl (Zoloft) 75 mg DAILY PO Last administered on 10/04/17at 09:59; Start 09/30/17 at 09:00; Stop 10/04/17 at 18:55; Status DC Sertraline HCl (Zoloft) 100 mg DAILY PO Last administered on 10/05/17at 08:27; Start 10/05/17 at 09:00 Active Scripts Active Reported Claritin (Loratadine) 10 Mg Tablet 10 Mg PO DAILY [place] (Sodium Chloride) 44 Ml [place] 1 [place] NS PRN Q2HR PRN Fluticasone Propionate Nasal [place] (Fluticasone Propionate) 16 Gm [place].susp 2 [place] NS BID Benadryl (Diphenhydramine Hcl) 25 Mg Capsule 25 Mg PO PRN BID PRN Ultram (Tramadol HCl) 50 Mg Tablet 50 Mg PO PRN Q6HRS PRN Ativan (Lorazepam) 0.5 Mg Tablet 0.5 Mg PO PRN Q4HRS PRN Seroquel (Quetiapine Fumarate) 25 Mg Tablet 25 Mg PO TID Calcium Carbonate 500 Mg Tablet 500 Mg PO PRN QID PRN Biofreeze (Menthol) 118 Ml Gel..ml. 1 [place] TP PRN TID PRN Lactulose 10 Gm/15 Ml Solution 10 Gm PO PRN QID PRN Vitamin B-1 (Thiamine Mononitrate) 100 Mg Tablet 100 Mg PO BID Thera M Plus Tablet (Multivits,Ca,Minerals/Iron/FA) 1 Each Tablet 1 Tab PO DAILY Lidocaine 1 Each Adh..patch 1 Patch TP DAILY [place] 5-325 Tablet (Hydrocodone Bit/Acetaminophen) 1 Each Tablet 2 Tab PO PRN Q6HRS PRN [place] 5-325 Tablet (Hydrocodone Bit/Acetaminophen) 1 Each Tablet 1 Tab PO PRN Q6HRS PRN Folic Acid 1 Mg Tablet 1 Mg PO DAILY I have reviewed the current psychotropics carefully including drug interactions. Risk benefit ratio favors no change other than as noted in my dictated progress note. Diagnosis: Problems: (1) Depression (2) Alcohol-induced persisting dementia (3) Alcohol dependence (4) Anxiety disorder (5) Impulse control disorder (6) Major depressive disorder, recurrent episode DAVID SWAN MD Oct 05, 2017 22:37
[2017-10-06] MEDS: traMADol 50 MG TABLET PO PRN ×2 (04:19→21:46)
[2017-10-06 06:30] VITALS: BP 119/65
[2017-10-06] MEDS: CETIRIZINE HCL 10 MG TABLET PO SCH (09:01)
[2017-10-06] MEDS: busPIRone 5 MG TABLET. PO SCH ×3 (09:02→16:54)
[2017-10-06] MEDS: SERTRALINE 100 MG TABLET. PO SCH (09:02)
[2017-10-06] MEDS: HYDROcodone/APAP 5/325MG 1 TAB TABLET PO PRN ×2 (09:02→15:39)
[2017-10-06] MEDS: CALCIUM CARBONATE 500 MG TAB.CHEW PO PRN (09:02)
[2017-10-06] MEDS: QUEtiapine 25 MG TABLET. PO SCH ×2 (09:02→12:12)
[2017-10-06] MEDS: MULTIVITAMIN with MINERAL TABLET. PO SCH (09:02)
[2017-10-06] MEDS: FOLIC ACID 1 MG TABLET PO SCH (09:02)
[2017-10-06] MEDS: THIAMINE 100 MG TABLET. PO SCH ×2 (09:03→20:42)
[2017-10-06] MEDS: GABAPENTIN 100 MG CAPSULE. PO SCH ×3 (09:03→20:42)
[2017-10-06] MEDS: LIDOCAINE (700MG/PATCH) PATCH. TP SCH (09:03)
[2017-10-06] MEDS: FLUTICASONE 50MCG/NASAL SPRAY 16GM BOTTLE. NS SCH ×2 (09:04→20:44)
[2017-10-06 16:18] VITALS: BP 128/78
[2017-10-06] MEDS: PATCH REMOVAL. MC SCH (20:42)
[2017-10-06] MEDS: QUEtiapine 50 MG TABLET. PO SCH (20:42)
[2017-10-06] MEDS: MIRTAZAPINE 7.5 MG TABLET. PO SCH (20:42)
--- NOTE | 2017-10-06 22:24 | PDOC ---
Exam Note: Brandon Note: Please also refer to the separate dictated note~for this date of service dictated separately.~Patient seen individually. Discussed the patient with Nursing staff reviewed the chart.~Reviewed interim history and current functioning. Reviewed vital signs,~Labs/ Radiology~and current medications noted below. Continue current treatment with the changes noted in the dictated addendum note Assessment: Vital Signs: Vital Signs Date Time Temp Pulse Resp B/P (MAP) Pulse Ox O2 Delivery O2 Flow Rate FiO2 10/06/17 21:46 18 Room Air 10/06/17 16:43 98 10/06/17 16:18 97.8 87 128/78 (95) I&O Intake and Output 10/06/17 07:00 Intake Total 1080 ml Balance 1080 ml Intake Oral 1080 ml # Voids 1 Current Medications: Meds: Current Medications Lorazepam (Ativan) 2 mg 1X ONCE IV Last administered on 09/20/17at 20:00; Start 09/20/17 at 20:00; Stop 09/20/17 at 20:01; Status DC Oxycodone/ Acetaminophen (Percocet 7.5/ 325) 1 tab STK-MED ONCE .ROUTE ; Start 09/20/17 at 19:44; Stop 09/20/17 at 19:45; Status DC Oxycodone/ Acetaminophen (Percocet 7.5/ 325) 2 tab 1X ONCE PO Last administered on 09/20/17at 19:45; Start 09/20/17 at 20:00; Stop 09/20/17 at 20:01 ; Status DC Lactated Ringer's 1,000 ml @ 1,000 mls/hr 1X ONCE IV ; Start 09/20/17 at 21:00 ; Stop 09/20/17 at 21:59; Status DC Acetaminophen (Tylenol) 650 mg PRN Q6HRS PRN PO PAIN / TEMP Last administered on 10/04/17at 10:48; Start 09/20/17 at 22:00 Multi-Ingredient Ointment (Analgesic [place]) 1 kenneth PRN QID PRN TP MUSCLE PAIN; Start 09/20/17 at 22:00 Al Hydroxide/Mg Hydroxide (Mylanta Plus Xs) 15 ml PRN AFTMEALHC PRN PO DYSPEPSIA Last administered on 09/21/17at 01:24; Start 09/20/17 at 22:00 Magnesium Hydroxide (Milk Of Magnesia) 2,400 mg PRN QHS PRN PO CONSTIPATION; Start 09/20/17 at 22:00 Lorazepam (Ativan) 0.5 mg PRN Q4HRS PRN PO ANXIETY / AGITATION Last administered on 10/04/17 20:39; Start 09/20/17 at 22:00 Quetiapine Fumarate (SEROquel) 25 mg TID PO Last administered on 09/21/17 14: 08; Start 09/20/17 at 22:30; Stop 09/21/17 at 18:38; Status DC Calcium Carbonate/ Glycine (Tums) 500 mg PRN QID PRN PO DYSPEPSIA Last administered on 10/06/17 09:02; Start 09/20/17 at 22:00 Diphenhydramine HCl (Benadryl) 25 mg PRN BID PRN PO ALLERGIES Last administered on 09/29/17 21:00; Start 09/20/17 at 22:00 Fluticasone Propionate (Flonase) 2 spray BID NS Last administered on 10/06/17 20:44; Start 09/21/17 at 09:00 Folic Acid (Folic Acid) 1 mg DAILY PO Last administered on 10/06/17 09:02; Start 09/21/17 at 09:00 Acetaminophen/ Hydrocodone Bitart (Lortab 5/325) 1 tab PRN Q6HRS PRN PO MODERATE PAIN Last administered on 10/06/17 15:39; Start 09/20/17 at 22:00 Acetaminophen/ Hydrocodone Bitart (Lortab 5/325) 2 tab PRN Q6HRS PRN PO SEVERE PAIN Last administered on 10/06/17 09:02; Start 09/20/17 at 22:00 Lidocaine (Lidoderm) 1 patch DAILY TP Last administered on 10/06/17 09:03; Start 09/21/17 at 09:00 Multivitamins/ Calcium (Thera-M Plus) 1 tab DAILY PO Last administered on 09:02; Start 09/21/17 at 09:00 Sodium Chloride (Saline Mist Nasal) 2 kenneth PRN Q2HR PRN NS Nasal Congestion Last administered on 10/04/17 16:44; Start 09/20/17 at 22:00 Tramadol HCl (Ultram) 50 mg PRN Q6HRS PRN PO PAIN Last administered on 21:46; Start 09/20/17 at 22:00 Lactulose (Lactulose) 10 gm PRN QID PRN PO CONSTIPATION; Start 09/20/17 at 22: 15 Cetirizine HCl (ZyrTEC) 10 mg DAILY PO Last administered on 10/06/17 09:01; Start 09/21/17 at 09:00 Non-Formulary Medication (Menthol (Biofreeze)) 1 kenneth PRN TID PRN TP MUSCLE PAIN ; Start 09/20/17 at 22:00; Status UNV Thiamine HCl (Vitamin B-1) 100 mg BID PO Last administered on 10/06/17 20:42; Start 09/21/17 at 09:00 Miscellaneous (Lidoderm Patch Removal) 1 ea QHS MC Last administered on 20:42; Start 09/20/17 at 21:00 Quetiapine Fumarate (SEROquel) 25 mg BID92 PO Last administered on 10/06/17 12 :12; Start 09/22/17 at 09:00 Quetiapine Fumarate (SEROquel) 50 mg QHS PO Last administered on 10/06/17 20: 42; Start 09/21/17 at 21:00 Sertraline HCl (Zoloft) 25 mg DAILY PO Last administered on 09/26/17 10:03; Start 09/24/17 at 09:00; Stop 09/27/17 at 08:59; Status DC Sertraline HCl (Zoloft) 50 mg DAILY PO Last administered on 09/29/17 08:41; Start 09/27/17 at 09:00; Stop 09/29/17 at 16:07; Status DC Vitamin D (Vitamin D3) 50,000 unit WEEKLY PO Last administered on 10/01/17 09: 38; Start 09/24/17 at 20:00 Gabapentin (Neurontin) 100 mg TID PO Last administered on 10/06/17 20:42; Start 09/24/17 at 21:00 Buspirone HCl (Buspar) 5 mg BID@0900,1300 PO Last administered on 09/26/17 10: 05; Start 09/26/17 at 09:00; Stop 09/26/17 at 11:29; Status DC Cyanocobalamin (Vitamin B-12) 1,000 mcg QMONTH IM Last administered on at 10:05; Start 09/26/17 at 09:00 Buspirone HCl (Buspar) 5 mg TID@0900,1300,1500 PO Last administered on at 12:46; Start 09/26/17 at 13:00; Stop 09/26/17 at 13:00; Status DC Buspirone HCl (Buspar) 5 mg TID@0900,1300,1700 PO Last administered on at 16:54; Start 09/26/17 at 17:00 Mirtazapine (Remeron) 7.5 mg QHS PO Last administered on 10/06/17at 20:42; Start 09/27/17 at 21:00 Sertraline HCl (Zoloft) 75 mg DAILY PO Last administered on 10/04/17at 09:59; Start 09/30/17 at 09:00; Stop 10/04/17 at 18:55; Status DC Sertraline HCl (Zoloft) 100 mg DAILY PO Last administered on 10/06/17at 09:02; Start 10/05/17 at 09:00 Active Scripts Active Reported Claritin (Loratadine) 10 Mg Tablet 10 Mg PO DAILY [place] (Sodium Chloride) 44 Ml [place] 1 [place] NS PRN Q2HR PRN Fluticasone Propionate Nasal [place] (Fluticasone Propionate) 16 Gm [place].susp 2 [place] NS BID Benadryl (Diphenhydramine Hcl) 25 Mg Capsule 25 Mg PO PRN BID PRN Ultram (Tramadol HCl) 50 Mg Tablet 50 Mg PO PRN Q6HRS PRN Ativan (Lorazepam) 0.5 Mg Tablet 0.5 Mg PO PRN Q4HRS PRN Seroquel (Quetiapine Fumarate) 25 Mg Tablet 25 Mg PO TID Calcium Carbonate 500 Mg Tablet 500 Mg PO PRN QID PRN Biofreeze (Menthol) 118 Ml Gel..ml. 1 [place] TP PRN TID PRN Lactulose 10 Gm/15 Ml Solution 10 Gm PO PRN QID PRN Vitamin B-1 (Thiamine Mononitrate) 100 Mg Tablet 100 Mg PO BID Thera M Plus Tablet (Multivits,Ca,Minerals/Iron/FA) 1 Each Tablet 1 Tab PO DAILY Lidocaine 1 Each Adh..patch 1 Patch TP DAILY [place] 5-325 Tablet (Hydrocodone Bit/Acetaminophen) 1 Each Tablet 2 Tab PO PRN Q6HRS PRN [place] 5-325 Tablet (Hydrocodone Bit/Acetaminophen) 1 Each Tablet 1 Tab PO PRN Q6HRS PRN Folic Acid 1 Mg Tablet 1 Mg PO DAILY I have reviewed the current psychotropics carefully including drug interactions. Risk benefit ratio favors no change other than as noted in my dictated progress note. Diagnosis: Problems: (1) Depression (2) Alcohol-induced persisting dementia (3) Alcohol dependence (4) Anxiety disorder (5) Impulse control disorder (6) Major depressive disorder, recurrent episode DAVID SWAN MD Oct 06, 2017 22:24
--- NOTE | 2017-10-07 01:12 | PN ---
DATE: 10/04/2017 PSYCHIATRIC PROGRESS NOTE This is a late entry of 10/04/2017, covers elements not covered in my initial note. SUBJECTIVE: The patient slept 6-1/2 hours. I met with her in the evening, compliant with medications, less anxious, less medication seeking, still confused with some short-term memory deficits, but otherwise oriented. REVIEW OF SYSTEMS: No CV, , pulmonary, eye system symptoms on review. MENTAL STATUS EXAM: Orientation is noted. Abstraction fair, computation impaired, language function intact, attention span short. Mood and affect still somewhat anxious, slightly dysphoric, but improved. Talked about the loss of her . IMPRESSION: Unchanged from initial note. PLAN: Increase Zoloft to 100 mg a day. Rest unchanged per initial note. MAN Dannielle SWAN MD DR: KATHERINE/mauro JOB#: [id number] / [id number]
[2017-10-07] MEDS: ACETAMINOPHEN 325 MG TABLET PO PRN (05:12)
[2017-10-07 06:18] VITALS: BP 120/79
[2017-10-07] MEDS: LIDOCAINE (700MG/PATCH) PATCH. TP SCH (08:26)
[2017-10-07] MEDS: CETIRIZINE HCL 10 MG TABLET PO SCH (08:26)
[2017-10-07] MEDS: GABAPENTIN 100 MG CAPSULE. PO SCH ×3 (08:26→20:15)
[2017-10-07] MEDS: FOLIC ACID 1 MG TABLET PO SCH (08:26)
[2017-10-07] MEDS: QUEtiapine 25 MG TABLET. PO SCH ×2 (08:26→13:21)
[2017-10-07] MEDS: THIAMINE 100 MG TABLET. PO SCH ×2 (08:26→20:15)
[2017-10-07] MEDS: MULTIVITAMIN with MINERAL TABLET. PO SCH (08:26)
[2017-10-07] MEDS: SERTRALINE 100 MG TABLET. PO SCH (08:26)
[2017-10-07] MEDS: busPIRone 5 MG TABLET. PO SCH ×3 (08:26→16:10)
[2017-10-07] MEDS: HYDROcodone/APAP 5/325MG 1 TAB TABLET PO PRN ×2 (08:29→20:20)
[2017-10-07] MEDS: FLUTICASONE 50MCG/NASAL SPRAY 16GM BOTTLE. NS SCH ×2 (08:30→20:18)
[2017-10-07] MEDS: traMADol 50 MG TABLET PO PRN (16:16)
[2017-10-07 16:18] VITALS: BP 129/61
[2017-10-07] MEDS: MIRTAZAPINE 7.5 MG TABLET. PO SCH (20:15)
[2017-10-07] MEDS: QUEtiapine 50 MG TABLET. PO SCH (20:15)
[2017-10-07] MEDS: PATCH REMOVAL. MC SCH (20:18)
--- NOTE | 2017-10-07 21:36 | PDOC ---
Exam Note: Brandon Note: Please also refer to the separate dictated note~for this date of service dictated separately.~Patient seen individually. Discussed the patient with Nursing staff reviewed the chart.~Reviewed interim history and current functioning. Reviewed vital signs,~Labs/ Radiology~and current medications noted below. Continue current treatment with the changes noted in the dictated addendum note Assessment: Vital Signs: Vital Signs Date Time Temp Pulse Resp B/P (MAP) Pulse Ox O2 Delivery O2 Flow Rate FiO2 10/07/17 17:59 96 10/07/17 16:18 97.7 90 18 129/61 (83) 10/06/17 23:10 Room Air I&O Intake and Output 10/07/17 07:00 Intake Total 1680 ml Balance 1680 ml Intake Oral 1680 ml # Voids 2 Current Medications: Meds: Current Medications Lorazepam (Ativan) 2 mg 1X ONCE IV Last administered on 09/20/17at 20:00; Start 09/20/17 at 20:00; Stop 09/20/17 at 20:01; Status DC Oxycodone/ Acetaminophen (Percocet 7.5/ 325) 1 tab STK-MED ONCE .ROUTE ; Start 09/20/17 at 19:44; Stop 09/20/17 at 19:45; Status DC Oxycodone/ Acetaminophen (Percocet 7.5/ 325) 2 tab 1X ONCE PO Last administered on 09/20/17at 19:45; Start 09/20/17 at 20:00; Stop 09/20/17 at 20:01 ; Status DC Lactated Ringer's 1,000 ml @ 1,000 mls/hr 1X ONCE IV ; Start 09/20/17 at 21:00 ; Stop 09/20/17 at 21:59; Status DC Acetaminophen (Tylenol) 650 mg PRN Q6HRS PRN PO PAIN / TEMP Last administered on 10/07/17at 05:12; Start 09/20/17 at 22:00 Multi-Ingredient Ointment (Analgesic [place]) 1 kenneth PRN QID PRN TP MUSCLE PAIN; Start 09/20/17 at 22:00 Al Hydroxide/Mg Hydroxide (Mylanta Plus Xs) 15 ml PRN AFTMEALHC PRN PO DYSPEPSIA Last administered on 09/21/17at 01:24; Start 09/20/17 at 22:00 Magnesium Hydroxide (Milk Of Magnesia) 2,400 mg PRN QHS PRN PO CONSTIPATION; Start 09/20/17 at 22:00 Lorazepam (Ativan) 0.5 mg PRN Q4HRS PRN PO ANXIETY / AGITATION Last administered on 10/04/17 20:39; Start 09/20/17 at 22:00 Quetiapine Fumarate (SEROquel) 25 mg TID PO Last administered on 09/21/17 14: 08; Start 09/20/17 at 22:30; Stop 09/21/17 at 18:38; Status DC Calcium Carbonate/ Glycine (Tums) 500 mg PRN QID PRN PO DYSPEPSIA Last administered on 10/06/17 09:02; Start 09/20/17 at 22:00 Diphenhydramine HCl (Benadryl) 25 mg PRN BID PRN PO ALLERGIES Last administered on 09/29/17 21:00; Start 09/20/17 at 22:00 Fluticasone Propionate (Flonase) 2 spray BID NS Last administered on 10/07/17 20:18; Start 09/21/17 at 09:00 Folic Acid (Folic Acid) 1 mg DAILY PO Last administered on 10/07/17 08:26; Start 09/21/17 at 09:00 Acetaminophen/ Hydrocodone Bitart (Lortab 5/325) 1 tab PRN Q6HRS PRN PO MODERATE PAIN Last administered on 10/06/17 15:39; Start 09/20/17 at 22:00 Acetaminophen/ Hydrocodone Bitart (Lortab 5/325) 2 tab PRN Q6HRS PRN PO SEVERE PAIN Last administered on 10/07/17 20:20; Start 09/20/17 at 22:00 Lidocaine (Lidoderm) 1 patch DAILY TP Last administered on 10/07/17 08:26; Start 09/21/17 at 09:00 Multivitamins/ Calcium (Thera-M Plus) 1 tab DAILY PO Last administered on 08:26; Start 09/21/17 at 09:00 Sodium Chloride (Saline Mist Nasal) 2 kenneth PRN Q2HR PRN NS Nasal Congestion Last administered on 10/04/17 16:44; Start 09/20/17 at 22:00 Tramadol HCl (Ultram) 50 mg PRN Q6HRS PRN PO PAIN Last administered on 16:16; Start 09/20/17 at 22:00 Lactulose (Lactulose) 10 gm PRN QID PRN PO CONSTIPATION; Start 09/20/17 at 22: 15 Cetirizine HCl (ZyrTEC) 10 mg DAILY PO Last administered on 10/07/17 08:26; Start 09/21/17 at 09:00 Non-Formulary Medication (Menthol (Biofreeze)) 1 kenneth PRN TID PRN TP MUSCLE PAIN ; Start 09/20/17 at 22:00; Status UNV Thiamine HCl (Vitamin B-1) 100 mg BID PO Last administered on 10/07/17 20:15; Start 09/21/17 at 09:00 Miscellaneous (Lidoderm Patch Removal) 1 ea QHS MC Last administered on 20:18; Start 09/20/17 at 21:00 Quetiapine Fumarate (SEROquel) 25 mg BID92 PO Last administered on 10/07/17 13 :21; Start 09/22/17 at 09:00 Quetiapine Fumarate (SEROquel) 50 mg QHS PO Last administered on 10/07/17 20: 15; Start 09/21/17 at 21:00 Sertraline HCl (Zoloft) 25 mg DAILY PO Last administered on 09/26/17 10:03; Start 09/24/17 at 09:00; Stop 09/27/17 at 08:59; Status DC Sertraline HCl (Zoloft) 50 mg DAILY PO Last administered on 09/29/17 08:41; Start 09/27/17 at 09:00; Stop 09/29/17 at 16:07; Status DC Vitamin D (Vitamin D3) 50,000 unit WEEKLY PO Last administered on 10/01/17 09: 38; Start 09/24/17 at 20:00 Gabapentin (Neurontin) 100 mg TID PO Last administered on 10/07/17 20:15; Start 09/24/17 at 21:00 Buspirone HCl (Buspar) 5 mg BID@0900,1300 PO Last administered on 09/26/17at 10: 05; Start 09/26/17 at 09:00; Stop 09/26/17 at 11:29; Status DC Cyanocobalamin (Vitamin B-12) 1,000 mcg QMONTH IM Last administered on at 10:05; Start 09/26/17 at 09:00 Buspirone HCl (Buspar) 5 mg TID@0900,1300,1500 PO Last administered on at 12:46; Start 09/26/17 at 13:00; Stop 09/26/17 at 13:00; Status DC Buspirone HCl (Buspar) 5 mg TID@0900,1300,1700 PO Last administered on at 16:10; Start 09/26/17 at 17:00 Mirtazapine (Remeron) 7.5 mg QHS PO Last administered on 10/07/17at 20:15; Start 09/27/17 at 21:00 Sertraline HCl (Zoloft) 75 mg DAILY PO Last administered on 10/04/17at 09:59; Start 09/30/17 at 09:00; Stop 10/04/17 at 18:55; Status DC Sertraline HCl (Zoloft) 100 mg DAILY PO Last administered on 10/07/17at 08:26; Start 10/05/17 at 09:00 Active Scripts Active Reported Claritin (Loratadine) 10 Mg Tablet 10 Mg PO DAILY [place] (Sodium Chloride) 44 Ml [place] 1 Crum NS PRN Q2HR PRN Fluticasone Propionate Nasal [place] (Fluticasone Propionate) 16 Gm Crum.susp 2 Crum NS BID Benadryl (Diphenhydramine Hcl) 25 Mg Capsule 25 Mg PO PRN BID PRN Ultram (Tramadol HCl) 50 Mg Tablet 50 Mg PO PRN Q6HRS PRN Ativan (Lorazepam) 0.5 Mg Tablet 0.5 Mg PO PRN Q4HRS PRN Seroquel (Quetiapine Fumarate) 25 Mg Tablet 25 Mg PO TID Calcium Carbonate 500 Mg Tablet 500 Mg PO PRN QID PRN Biofreeze (Menthol) 118 Ml Gel..ml. 1 Kenneth TP PRN TID PRN Lactulose 10 Gm/15 Ml Solution 10 Gm PO PRN QID PRN Vitamin B-1 (Thiamine Mononitrate) 100 Mg Tablet 100 Mg PO BID Thera M Plus Tablet (Multivits,Ca,Minerals/Iron/FA) 1 Each Tablet 1 Tab PO DAILY Lidocaine 1 Each Adh..patch 1 Patch TP DAILY [place] 5-325 Tablet (Hydrocodone Bit/Acetaminophen) 1 Each Tablet 2 Tab PO PRN Q6HRS PRN [place] 5-325 Tablet (Hydrocodone Bit/Acetaminophen) 1 Each Tablet 1 Tab PO PRN Q6HRS PRN Folic Acid 1 Mg Tablet 1 Mg PO DAILY I have reviewed the current psychotropics carefully including drug interactions. Risk benefit ratio favors no change other than as noted in my dictated progress note. Diagnosis: Problems: (1) Depression (2) Alcohol-induced persisting dementia (3) Alcohol dependence (4) Anxiety disorder (5) Impulse control disorder (6) Major depressive disorder, recurrent episode DAVID SWAN MD Oct 07, 2017 21:36
[2017-10-07] MEDS: diphenhydrAMINE HCL 25 MG CAPSULE PO PRN (22:15)
--- NOTE | 2017-10-08 03:26 | PN ---
DATE: 10/05/2017 PSYCHIATRIC PROGRESS NOTE This is a late entry of 10/05/2017, covers elements not covered in my initial note of 10/05/2017. SUBJECTIVE: I met with the patient in the evening. The patient slept 7 hours previous evening, somewhat pleasant, forgetful, less demanding and anxious. I again discussed with her, her desire to have her brother Mike take on the responsibility for power of document review attorney for finances and she is very clear about the role of the financial power of document review attorney and says she explicitly trusts her brother Mike "we grew up together, I trust him completely," and would like him to do this. REVIEW OF SYSTEMS: No CV, , pulmonary, eye system symptoms on review. MENTAL STATUS EXAM: Oriented to herself and situation. Speech is coherent, less pressured. Abstraction fair, computation impaired, language function intact, attention span short. Mood and affect are showing improvement. IMPRESSION: Unchanged from initial note. PLAN: Continue current psychotropics. DAVID SWAN MD DR: KATHERINE/mauro JOB#: [id number] / [id number]
[2017-10-08] MEDS: ACETAMINOPHEN 325 MG TABLET PO PRN ×2 (04:12→17:16)
[2017-10-08] MEDS: SODIUM CHLORIDE 0.65% NASAL SPRAY 45ML BOTTLE. NS PRN (04:15)
--- NOTE | 2017-10-08 05:03 | PN ---
DATE: 10/06/2017 PSYCHIATRIC PROGRESS NOTE This late entry 10/06/2017 covers elements not covered in my initial note. SUBJECTIVE: I met with the patient in the evening. The patient slept 5-3/4 hours previous evening taking her pain medications frequently, somewhat anxious, confused at times, but otherwise oriented to place and situation. REVIEW OF SYSTEMS: Does have the pain as noted, very open verbal forthcoming as we discussed her brother Mike being her financial power of associate attorney. She fully understands this, consents to it, actually really wants Mike to help her with this decision. She states he lives in the [facility] and they have been very close together. No CV, , pulmonary, eye system symptoms on review. MENTAL STATUS EXAM: Oriented to herself and situation. Speech is coherent, verbal abstraction fair, computation impaired, language function intact. Mood and affect showing improvement. LABORATORIES: Reviewed. IMPRESSION: Unchanged from initial note. PLAN: Continue psychotropics mentioned in my initial note. DAVID SWAN MD DR: KATHERINE/mauro JOB#: [id number] / [id number]
[2017-10-08 06:33] VITALS: BP 108/71
[2017-10-08 07:41] VITALS: BP 131/65
[2017-10-08] MEDS: FOLIC ACID 1 MG TABLET PO SCH (08:25)
[2017-10-08] MEDS: GABAPENTIN 100 MG CAPSULE. PO SCH ×3 (08:25→19:58)
[2017-10-08] MEDS: CETIRIZINE HCL 10 MG TABLET PO SCH (08:25)
[2017-10-08] MEDS: MULTIVITAMIN with MINERAL TABLET. PO SCH (08:25)
[2017-10-08] MEDS: LIDOCAINE (700MG/PATCH) PATCH. TP SCH (08:25)
[2017-10-08] MEDS: THIAMINE 100 MG TABLET. PO SCH ×2 (08:25→19:58)
[2017-10-08] MEDS: busPIRone 5 MG TABLET. PO SCH ×3 (08:25→16:47)
[2017-10-08] MEDS: CHOLECALCIFEROL (VITAMIN D3) 50,000 UNIT CAPSULE PO SCH (08:25)
[2017-10-08] MEDS: QUEtiapine 25 MG TABLET. PO SCH ×2 (08:26→13:18)
[2017-10-08] MEDS: SERTRALINE 100 MG TABLET. PO SCH (08:26)
[2017-10-08] MEDS: FLUTICASONE 50MCG/NASAL SPRAY 16GM BOTTLE. NS SCH ×2 (08:27→20:00)
[2017-10-08] MEDS: HYDROcodone/APAP 5/325MG 1 TAB TABLET PO PRN ×2 (08:30→20:00)
[2017-10-08] MEDS: traMADol 50 MG TABLET PO PRN (13:18)
[2017-10-08 15:58] VITALS: BP 137/75
[2017-10-08] MEDS ORDERED: BUSP10TA PO (18:59)
[2017-10-08] MEDS: MIRTAZAPINE 7.5 MG TABLET. PO SCH (19:58)
[2017-10-08] MEDS: PATCH REMOVAL. MC SCH (19:58)
[2017-10-08] MEDS: QUEtiapine 50 MG TABLET. PO SCH (19:58)
--- NOTE | 2017-10-08 21:37 | PDOC ---
Exam Note: Brandon Note: Please also refer to the separate dictated note~for this date of service dictated separately.~Patient seen individually. Discussed the patient with Nursing staff reviewed the chart.~Reviewed interim history and current functioning. Reviewed vital signs,~Labs/ Radiology~and current medications noted below. Continue current treatment with the changes noted in the dictated addendum note Assessment: Vital Signs: Vital Signs Date Time Temp Pulse Resp B/P (MAP) Pulse Ox O2 Delivery O2 Flow Rate FiO2 10/08/17 15:58 97.1 100 16 137/75 (95) 100 10/06/17 23:10 Room Air I&O Intake and Output 10/08/17 07:00 Intake Total 1560 ml Balance 1560 ml Intake Oral 1560 ml # Voids 1 Current Medications: Meds: Current Medications Lorazepam (Ativan) 2 mg 1X ONCE IV Last administered on 09/20/17at 20:00; Start 09/20/17 at 20:00; Stop 09/20/17 at 20:01; Status DC Oxycodone/ Acetaminophen (Percocet 7.5/ 325) 1 tab STK-MED ONCE .ROUTE ; Start 09/20/17 at 19:44; Stop 09/20/17 at 19:45; Status DC Oxycodone/ Acetaminophen (Percocet 7.5/ 325) 2 tab 1X ONCE PO Last administered on 09/20/17at 19:45; Start 09/20/17 at 20:00; Stop 09/20/17 at 20:01 ; Status DC Lactated Ringer's 1,000 ml @ 1,000 mls/hr 1X ONCE IV ; Start 09/20/17 at 21:00 ; Stop 09/20/17 at 21:59; Status DC Acetaminophen (Tylenol) 650 mg PRN Q6HRS PRN PO PAIN / TEMP Last administered on 10/08/17at 17:16; Start 09/20/17 at 22:00 Multi-Ingredient Ointment (Analgesic [place]) 1 kenneth PRN QID PRN TP MUSCLE PAIN; Start 09/20/17 at 22:00 Al Hydroxide/Mg Hydroxide (Mylanta Plus Xs) 15 ml PRN AFTMEALHC PRN PO DYSPEPSIA Last administered on 09/21/17at 01:24; Start 09/20/17 at 22:00 Magnesium Hydroxide (Milk Of Magnesia) 2,400 mg PRN QHS PRN PO CONSTIPATION; Start 09/20/17 at 22:00 Lorazepam (Ativan) 0.5 mg PRN Q4HRS PRN PO ANXIETY / AGITATION Last administered on 10/04/17 20:39; Start 09/20/17 at 22:00 Quetiapine Fumarate (SEROquel) 25 mg TID PO Last administered on 09/21/17 14: 08; Start 09/20/17 at 22:30; Stop 09/21/17 at 18:38; Status DC Calcium Carbonate/ Glycine (Tums) 500 mg PRN QID PRN PO DYSPEPSIA Last administered on 10/06/17 09:02; Start 09/20/17 at 22:00 Diphenhydramine HCl (Benadryl) 25 mg PRN BID PRN PO ALLERGIES Last administered on 10/07/17 22:15; Start 09/20/17 at 22:00 Fluticasone Propionate (Flonase) 2 spray BID NS Last administered on 10/08/17 20:00; Start 09/21/17 at 09:00 Folic Acid (Folic Acid) 1 mg DAILY PO Last administered on 10/08/17 08:25; Start 09/21/17 at 09:00 Acetaminophen/ Hydrocodone Bitart (Lortab 5/325) 1 tab PRN Q6HRS PRN PO MODERATE PAIN Last administered on 10/06/17 15:39; Start 09/20/17 at 22:00 Acetaminophen/ Hydrocodone Bitart (Lortab 5/325) 2 tab PRN Q6HRS PRN PO SEVERE PAIN Last administered on 10/08/17 20:00; Start 09/20/17 at 22:00 Lidocaine (Lidoderm) 1 patch DAILY TP Last administered on 10/08/17 08:25; Start 09/21/17 at 09:00 Multivitamins/ Calcium (Thera-M Plus) 1 tab DAILY PO Last administered on 08:25; Start 09/21/17 at 09:00 Sodium Chloride (Saline Mist Nasal) 2 kenneth PRN Q2HR PRN NS Nasal Congestion Last administered on 10/08/17 04:15; Start 09/20/17 at 22:00 Tramadol HCl (Ultram) 50 mg PRN Q6HRS PRN PO PAIN Last administered on 13:18; Start 09/20/17 at 22:00 Lactulose (Lactulose) 10 gm PRN QID PRN PO CONSTIPATION; Start 09/20/17 at 22: 15 Cetirizine HCl (ZyrTEC) 10 mg DAILY PO Last administered on 10/08/17 08:25; Start 09/21/17 at 09:00 Non-Formulary Medication (Menthol (Biofreeze)) 1 kenneth PRN TID PRN TP MUSCLE PAIN ; Start 09/20/17 at 22:00; Status UNV Thiamine HCl (Vitamin B-1) 100 mg BID PO Last administered on 10/08/17 19:58; Start 09/21/17 at 09:00 Miscellaneous (Lidoderm Patch Removal) 1 ea QHS MC Last administered on 19:58; Start 09/20/17 at 21:00 Quetiapine Fumarate (SEROquel) 25 mg BID92 PO Last administered on 10/08/17 13: 18; Start 09/22/17 at 09:00 Quetiapine Fumarate (SEROquel) 50 mg QHS PO Last administered on 10/08/17 19:58 ; Start 09/21/17 at 21:00 Sertraline HCl (Zoloft) 25 mg DAILY PO Last administered on 09/26/17at 10:03; Start 09/24/17 at 09:00; Stop 09/27/17 at 08:59; Status DC Sertraline HCl (Zoloft) 50 mg DAILY PO Last administered on 09/29/17at 08:41; Start 09/27/17 at 09:00; Stop 09/29/17 at 16:07; Status DC Vitamin D (Vitamin D3) 50,000 unit WEEKLY PO Last administered on 10/08/17 08: 25; Start 09/24/17 at 20:00 Gabapentin (Neurontin) 100 mg TID PO Last administered on 10/08/17 19:58; Start 09/24/17 at 21:00 Buspirone HCl (Buspar) 5 mg BID@0900,1300 PO Last administered on 09/26/17at 10: 05; Start 09/26/17 at 09:00; Stop 09/26/17 at 11:29; Status DC Cyanocobalamin (Vitamin B-12) 1,000 mcg QMONTH IM Last administered on at 10:05; Start 09/26/17 at 09:00 Buspirone HCl (Buspar) 5 mg TID@0900,1300,1500 PO Last administered on at 12:46; Start 09/26/17 at 13:00; Stop 09/26/17 at 13:00; Status DC Buspirone HCl (Buspar) 5 mg TID@0900,1300,1700 PO Last administered on at 16:47; Start 09/26/17 at 17:00; Stop 10/08/17 at 18:59; Status DC Mirtazapine (Remeron) 7.5 mg QHS PO Last administered on 10/08/17at 19:58; Start 09/27/17 at 21:00 Sertraline HCl (Zoloft) 75 mg DAILY PO Last administered on 10/04/17at 09:59; Start 09/30/17 at 09:00; Stop 10/04/17 at 18:55; Status DC Sertraline HCl (Zoloft) 100 mg DAILY PO Last administered on 10/08/17at 08:26; Start 10/05/17 at 09:00 Buspirone HCl (Buspar) 5 mg 1300 PO ; Start 10/09/17 at 13:00 Active Scripts Active Reported Buspirone Hcl 10 Mg Tablet 1 Tab PO BID@0900,1700 Claritin (Loratadine) 10 Mg Tablet 10 Mg PO DAILY [place] (Sodium Chloride) 44 Ml [place] 1 [place] NS PRN Q2HR PRN Fluticasone Propionate Nasal [place] (Fluticasone Propionate) 16 Gm [place].susp 2 [place] NS BID Benadryl (Diphenhydramine Hcl) 25 Mg Capsule 25 Mg PO PRN BID PRN Ultram (Tramadol HCl) 50 Mg Tablet 50 Mg PO PRN Q6HRS PRN Ativan (Lorazepam) 0.5 Mg Tablet 0.5 Mg PO PRN Q4HRS PRN Seroquel (Quetiapine Fumarate) 25 Mg Tablet 25 Mg PO TID Calcium Carbonate 500 Mg Tablet 500 Mg PO PRN QID PRN Biofreeze (Menthol) 118 Ml Gel..ml. 1 Kenneth TP PRN TID PRN Lactulose 10 Gm/15 Ml Solution 10 Gm PO PRN QID PRN Vitamin B-1 (Thiamine Mononitrate) 100 Mg Tablet 100 Mg PO BID Thera M Plus Tablet (Multivits,Ca,Minerals/Iron/FA) 1 Each Tablet 1 Tab PO DAILY Lidocaine 1 Each Adh..patch 1 Patch TP DAILY [place] 5-325 Tablet (Hydrocodone Bit/Acetaminophen) 1 Each Tablet 2 Tab PO PRN Q6HRS PRN [place] 5-325 Tablet (Hydrocodone Bit/Acetaminophen) 1 Each Tablet 1 Tab PO PRN Q6HRS PRN Folic Acid 1 Mg Tablet 1 Mg PO DAILY I have reviewed the current psychotropics carefully including drug interactions. Risk benefit ratio favors no change other than as noted in my dictated progress note. Diagnosis: Problems: (1) Depression (2) Alcohol-induced persisting dementia (3) Alcohol dependence (4) Anxiety disorder (5) Impulse control disorder (6) Major depressive disorder, recurrent episode DAVID SWAN MD October 08, 2017 21:37
[2017-10-08] MEDS: diphenhydrAMINE HCL 25 MG CAPSULE PO PRN (23:37)
[2017-10-09] MEDS: HYDROcodone/APAP 5/325MG 1 TAB TABLET PO PRN ×3 (02:04→20:13)
--- NOTE | 2017-10-09 03:02 | PN ---
DATE: 10/07/2017 PSYCHIATRIC PROGRESS NOTE This is a late entry for 10/07/2017, covers elements not covered in my initial note of 10/07/2017. SUBJECTIVE: I met with the patient in the evening. The patient slept 6-1/2 hours. She does have some short-term memory deficits. REVIEW OF SYSTEMS: Complains of chronic pain. No CV, , pulmonary, eye, ENT system symptoms on review. Otherwise, cooperative per nursing report. MENTAL STATUS EXAM: Oriented to herself and situation. Speech coherent. Very animated, verbal as I have talked to her about the loss of her , support she has from her brother. Abstraction fair, computation impaired, language function intact, attention span short. Mood and affect is improved. IMPRESSION: Unchanged from initial note. PLAN: Continue current psychotropics. MAN Dannielle SWAN MD DR: KATHERINE/mauro JOB#: [id number] / [id number]
[2017-10-09 06:39] VITALS: BP 121/71
[2017-10-09] MEDS: CETIRIZINE HCL 10 MG TABLET PO SCH (08:32)
[2017-10-09] MEDS: THIAMINE 100 MG TABLET. PO SCH ×2 (08:32→20:10)
[2017-10-09] MEDS: LIDOCAINE (700MG/PATCH) PATCH. TP SCH (08:32)
[2017-10-09] MEDS: MULTIVITAMIN with MINERAL TABLET. PO SCH (08:32)
[2017-10-09] MEDS: SERTRALINE 100 MG TABLET. PO SCH (08:32)
[2017-10-09] MEDS: FOLIC ACID 1 MG TABLET PO SCH (08:32)
[2017-10-09] MEDS: GABAPENTIN 100 MG CAPSULE. PO SCH ×3 (08:32→20:04)
[2017-10-09] MEDS: QUEtiapine 25 MG TABLET. PO SCH ×2 (08:32→13:34)
[2017-10-09] MEDS: FLUTICASONE 50MCG/NASAL SPRAY 16GM BOTTLE. NS SCH ×2 (08:33→20:10)
[2017-10-09] MEDS: ACETAMINOPHEN 325 MG TABLET PO PRN (12:09)
[2017-10-09] MEDS: busPIRone 5 MG TABLET. PO SCH (13:35)
[2017-10-09] MEDS: traMADol 50 MG TABLET PO PRN (15:45)
[2017-10-09 16:51] VITALS: BP 108/55
[2017-10-09] MEDS: SODIUM CHLORIDE 0.65% NASAL SPRAY 45ML BOTTLE. NS PRN (20:04)
[2017-10-09] MEDS: QUEtiapine 50 MG TABLET. PO SCH (20:04)
[2017-10-09] MEDS: PATCH REMOVAL. MC SCH (20:11)
[2017-10-09] MEDS ORDERED: MIRTAZAPINE 15 MG TABLET PO SCH (21:00)
--- NOTE | 2017-10-09 21:00 | PDOC ---
Exam Note: Brandon Note: Please also refer to the separate dictated note~for this date of service dictated separately.~Patient seen individually. Discussed the patient with Nursing staff reviewed the chart.~Reviewed interim history and current functioning. Reviewed vital signs,~Labs/ Radiology~and current medications noted below. Continue current treatment with the changes noted in the dictated addendum note Assessment: Vital Signs: Vital Signs Date Time Temp Pulse Resp B/P (MAP) Pulse Ox O2 Delivery O2 Flow Rate FiO2 10/09/17 20:13 Room Air 10/09/17 17:53 97 10/09/17 16:51 97.4 89 18 108/55 (72) I&O Intake and Output 10/09/17 07:00 Intake Total 2280 ml Balance 2280 ml Intake Oral 2280 ml Current Medications: Meds: Current Medications Lorazepam (Ativan) 2 mg 1X ONCE IV Last administered on 09/20/17at 20:00; Start 09/20/17 at 20:00; Stop 09/20/17 at 20:01; Status DC Oxycodone/ Acetaminophen (Percocet 7.5/ 325) 1 tab STK-MED ONCE .ROUTE ; Start 09/20/17 at 19:44; Stop 09/20/17 at 19:45; Status DC Oxycodone/ Acetaminophen (Percocet 7.5/ 325) 2 tab 1X ONCE PO Last administered on 09/20/17at 19:45; Start 09/20/17 at 20:00; Stop 09/20/17 at 20:01 ; Status DC Lactated Ringer's 1,000 ml @ 1,000 mls/hr 1X ONCE IV ; Start 09/20/17 at 21:00 ; Stop 09/20/17 at 21:59; Status DC Acetaminophen (Tylenol) 650 mg PRN Q6HRS PRN PO PAIN / TEMP Last administered on 10/09/17at 12:09; Start 09/20/17 at 22:00 Multi-Ingredient Ointment (Analgesic [place]) 1 kenneth PRN QID PRN TP MUSCLE PAIN; Start 09/20/17 at 22:00 Al Hydroxide/Mg Hydroxide (Mylanta Plus Xs) 15 ml PRN AFTMEALHC PRN PO DYSPEPSIA Last administered on 09/21/17at 01:24; Start 09/20/17 at 22:00 Magnesium Hydroxide (Milk Of Magnesia) 2,400 mg PRN QHS PRN PO CONSTIPATION; Start 09/20/17 at 22:00 Lorazepam (Ativan) 0.5 mg PRN Q4HRS PRN PO ANXIETY / AGITATION Last administered on 10/04/17 20:39; Start 09/20/17 at 22:00 Quetiapine Fumarate (SEROquel) 25 mg TID PO Last administered on 09/21/17 14: 08; Start 09/20/17 at 22:30; Stop 09/21/17 at 18:38; Status DC Calcium Carbonate/ Glycine (Tums) 500 mg PRN QID PRN PO DYSPEPSIA Last administered on 10/06/17 09:02; Start 09/20/17 at 22:00 Diphenhydramine HCl (Benadryl) 25 mg PRN BID PRN PO ALLERGIES Last administered on 10/08/17 23:37; Start 09/20/17 at 22:00 Fluticasone Propionate (Flonase) 2 spray BID NS Last administered on 10/09/17 20:10; Start 09/21/17 at 09:00 Folic Acid (Folic Acid) 1 mg DAILY PO Last administered on 10/09/17 08:32; Start 09/21/17 at 09:00 Acetaminophen/ Hydrocodone Bitart (Lortab 5/325) 1 tab PRN Q6HRS PRN PO MODERATE PAIN Last administered on 10/06/17 15:39; Start 09/20/17 at 22:00 Acetaminophen/ Hydrocodone Bitart (Lortab 5/325) 2 tab PRN Q6HRS PRN PO SEVERE PAIN Last administered on 10/09/17 20:13; Start 09/20/17 at 22:00 Lidocaine (Lidoderm) 1 patch DAILY TP Last administered on 10/09/17 08:32; Start 09/21/17 at 09:00 Multivitamins/ Calcium (Thera-M Plus) 1 tab DAILY PO Last administered on 08:32; Start 09/21/17 at 09:00 Sodium Chloride (Saline Mist Nasal) 2 kenneth PRN Q2HR PRN NS Nasal Congestion Last administered on 10/09/17 20:04; Start 09/20/17 at 22:00 Tramadol HCl (Ultram) 50 mg PRN Q6HRS PRN PO PAIN Last administered on 15:45; Start 09/20/17 at 22:00 Lactulose (Lactulose) 10 gm PRN QID PRN PO CONSTIPATION; Start 09/20/17 at 22: 15 Cetirizine HCl (ZyrTEC) 10 mg DAILY PO Last administered on 10/09/17 08:32; Start 09/21/17 at 09:00 Non-Formulary Medication (Menthol (Biofreeze)) 1 kenneth PRN TID PRN TP MUSCLE PAIN ; Start 09/20/17 at 22:00; Status UNV Thiamine HCl (Vitamin B-1) 100 mg BID PO Last administered on 10/09/17 20:10; Start 09/21/17 at 09:00 Miscellaneous (Lidoderm Patch Removal) 1 ea QHS MC Last administered on 20:11; Start 09/20/17 at 21:00 Quetiapine Fumarate (SEROquel) 25 mg BID92 PO Last administered on 10/09/17 13: 34; Start 09/22/17 at 09:00 Quetiapine Fumarate (SEROquel) 50 mg QHS PO Last administered on 10/09/17 20:04 ; Start 09/21/17 at 21:00 Sertraline HCl (Zoloft) 25 mg DAILY PO Last administered on 09/26/17 10:03; Start 09/24/17 at 09:00; Stop 09/27/17 at 08:59; Status DC Sertraline HCl (Zoloft) 50 mg DAILY PO Last administered on 09/29/17 08:41; Start 09/27/17 at 09:00; Stop 09/29/17 at 16:07; Status DC Vitamin D (Vitamin D3) 50,000 unit WEEKLY PO Last administered on 10/08/17 08: 25; Start 09/24/17 at 20:00 Gabapentin (Neurontin) 100 mg TID PO Last administered on 10/09/17 20:04; Start 09/24/17 at 21:00 Buspirone HCl (Buspar) 5 mg BID@0900,1300 PO Last administered on 09/26/17at 10: 05; Start 09/26/17 at 09:00; Stop 09/26/17 at 11:29; Status DC Cyanocobalamin (Vitamin B-12) 1,000 mcg QMONTH IM Last administered on at 10:05; Start 09/26/17 at 09:00 Buspirone HCl (Buspar) 5 mg TID@0900,1300,1500 PO Last administered on at 12:46; Start 09/26/17 at 13:00; Stop 09/26/17 at 13:00; Status DC Buspirone HCl (Buspar) 5 mg TID@0900,1300,1700 PO Last administered on at 16:47; Start 09/26/17 at 17:00; Stop 10/08/17 at 18:59; Status DC Mirtazapine (Remeron) 7.5 mg QHS PO Last administered on 10/08/17at 19:58; Start 09/27/17 at 21:00; Stop 10/09/17 at 18:56; Status DC Sertraline HCl (Zoloft) 75 mg DAILY PO Last administered on 10/04/17at 09:59; Start 09/30/17 at 09:00; Stop 10/04/17 at 18:55; Status DC Sertraline HCl (Zoloft) 100 mg DAILY PO Last administered on 10/09/17at 08:32; Start 10/05/17 at 09:00 Buspirone HCl (Buspar) 5 mg 1300 PO Last administered on 10/09/17at 13:35; Start 10/09/17 at 13:00 Mirtazapine (Remeron) 15 mg QHS PO Last administered on 10/09/17at 20:10; Start 10/09/17 at 21:00 Active Scripts Active Reported Buspirone Hcl 10 Mg Tablet 1 Tab PO BID@0900,1700 Claritin (Loratadine) 10 Mg Tablet 10 Mg PO DAILY [place] (Sodium Chloride) 44 Ml [place] 1 [place] NS PRN Q2HR PRN Fluticasone Propionate Nasal [place] (Fluticasone Propionate) 16 Gm [place].susp 2 [place] NS BID Benadryl (Diphenhydramine Hcl) 25 Mg Capsule 25 Mg PO PRN BID PRN Ultram (Tramadol HCl) 50 Mg Tablet 50 Mg PO PRN Q6HRS PRN Ativan (Lorazepam) 0.5 Mg Tablet 0.5 Mg PO PRN Q4HRS PRN Seroquel (Quetiapine Fumarate) 25 Mg Tablet 25 Mg PO TID Calcium Carbonate 500 Mg Tablet 500 Mg PO PRN QID PRN Biofreeze (Menthol) 118 Ml Gel..ml. 1 Kenneth TP PRN TID PRN Lactulose 10 Gm/15 Ml Solution 10 Gm PO PRN QID PRN Vitamin B-1 (Thiamine Mononitrate) 100 Mg Tablet 100 Mg PO BID Thera M Plus Tablet (Multivits,Ca,Minerals/Iron/FA) 1 Each Tablet 1 Tab PO DAILY Lidocaine 1 Each Adh..patch 1 Patch TP DAILY [place] 5-325 Tablet (Hydrocodone Bit/Acetaminophen) 1 Each Tablet 2 Tab PO PRN Q6HRS PRN [place] 5-325 Tablet (Hydrocodone Bit/Acetaminophen) 1 Each Tablet 1 Tab PO PRN Q6HRS PRN Folic Acid 1 Mg Tablet 1 Mg PO DAILY I have reviewed the current psychotropics carefully including drug interactions. Risk benefit ratio favors no change other than as noted in my dictated progress note. Diagnosis: Problems: (1) Depression (2) Alcohol-induced persisting dementia (3) Alcohol dependence (4) Anxiety disorder (5) Impulse control disorder (6) Major depressive disorder, recurrent episode DAVID SWAN MD October 09, 2017 21:00
[2017-10-09] MEDS: diphenhydrAMINE HCL 25 MG CAPSULE PO PRN (21:37)
--- NOTE | 2017-10-09 23:29 | PN ---
DATE: 10/08/2017 This is a late entry, 10/08/2017, covers the elements not covered in my initial note 10/08/2017. SUBJECTIVE: I met with the patient in the evening. The patient slept 6-1/4 hours previous evening, somewhat anxious, dysphoric with short-term memory deficits asking frequently for her pain medications, little irritable during the day, received tramadol and Lortab. REVIEW OF SYSTEMS: No CV, , pulmonary, eye system symptoms on review. MENTAL STATUS EXAM: Oriented to herself and situation. Speech coherent, a little pressured. Abstraction fair, computation impaired, language function intact. Mood dysphoric, anxious. Affect mood congruent. No suicidal or homicidal ideation. PLAN: Continue psychotropics as mentioned in my initial note. Increase BuSpar from 5 mg 3 times a day to 10 mg twice a day, 5 mg once a day, rest unchanged. MAN Dannielle SWAN MD DR: KATHERINE/mauro JOB#: [id number] / [id number]
[2017-10-10] MEDS ORDERED: ACET500T68 PO (01:34)
[2017-10-10] MEDS ORDERED: CHOL500021 PO (01:36)
[2017-10-10] MEDS ORDERED: CYAN10002 IM (01:37)
[2017-10-10] MEDS ORDERED: LACT10SO PO (01:39)
[2017-10-10] MEDS ORDERED: GABA-585 PO (01:39)
[2017-10-10] MEDS ORDERED: LORA0.5T PO (01:40)
[2017-10-10] MEDS ORDERED: MAG30ORA2 PO (01:44)
[2017-10-10] MEDS ORDERED: MAGN400O7 PO (01:45)
[2017-10-10] MEDS ORDERED: MIRT15TA3 PO (01:47)
[2017-10-10] MEDS ORDERED: MULT-638 PO (01:48)
[2017-10-10] MEDS ORDERED: QUET50TA5 PO (01:50)
[2017-10-10] MEDS ORDERED: QUET25TA5 PO (01:51)
[2017-10-10] MEDS ORDERED: SERT100T PO (01:52)
[2017-10-10] MEDS ORDERED: BUSP5TAB PO (01:55)
[2017-10-10] MEDS: ACETAMINOPHEN 325 MG TABLET PO PRN ×2 (02:40→13:28)
[2017-10-10] MEDS: traMADol 50 MG TABLET PO PRN (02:40)
[2017-10-10 05:42] VITALS: BP 121/69
[2017-10-10] MEDS: HYDROcodone/APAP 5/325MG 1 TAB TABLET PO PRN (05:43)
[2017-10-10] MEDS: CALCIUM CARBONATE 500 MG TAB.CHEW PO PRN (06:34)
[2017-10-10 06:41] LABS: BASO % 1 % (0-3); EOS # 0.2 x10^3/uL (0.0-0.7); EOS % 4 % (0-3); HEMATOCRIT 28.1 % (36.0-47.0); HEMOGLOBIN 9.5 g/dL (12.0-15.5); LYMPH # 1.3 x10^3/uL (1.0-4.8); LYMPH % 32 % (24-48); MEAN CORPUSCULAR HEMOGLOBIN 32 pg (25-35); MEAN CORPUSCULAR HGB CONC 34 g/dL (31-37); MEAN CORPUSCULAR VOLUME 94 fL (79-100); MONO # 0.7 x10^3/uL (0.0-1.1); MONO % 17 % (0-9); NEUT # 1.9 x10^3uL (1.8-7.7); NEUT % 47 % (31-73); PLATELET COUNT 365 x10^3/uL (140-400); RED CELL DISTRIBUTION WIDTH 14.4 % (11.5-14.5); WHITE BLOOD COUNT 4.2 x10^3/uL (4.0-11.0)
[2017-10-10 06:51] LABS: ALBUMIN 2.5 g/dL (3.4-5.0); ALBUMIN/GLOBULIN RATIO 0.8 (1.0-1.7); CALCIUM 8.7 mg/dL (8.5-10.1); CREATININE 0.8 mg/dL (0.6-1.0); GFR 70.9; TOTAL BILIRUBIN 0.2 mg/dL (0.2-1.0); TOTAL PROTEIN 5.8 g/dL (6.4-8.2)
[2017-10-10] MEDS: LIDOCAINE (700MG/PATCH) PATCH. TP SCH (09:08)
[2017-10-10] MEDS: FLUTICASONE 50MCG/NASAL SPRAY 16GM BOTTLE. NS SCH (09:08)
[2017-10-10] MEDS: SERTRALINE 100 MG TABLET. PO SCH (09:09)
[2017-10-10] MEDS: CETIRIZINE HCL 10 MG TABLET PO SCH (09:09)
[2017-10-10] MEDS: MULTIVITAMIN with MINERAL TABLET. PO SCH (09:09)
[2017-10-10] MEDS: FOLIC ACID 1 MG TABLET PO SCH (09:09)
[2017-10-10] MEDS: GABAPENTIN 100 MG CAPSULE. PO SCH ×2 (09:09→13:26)
[2017-10-10] MEDS: THIAMINE 100 MG TABLET. PO SCH (09:09)
[2017-10-10] MEDS: QUEtiapine 25 MG TABLET. PO SCH ×2 (09:09→13:26)
[2017-10-10] MEDS: busPIRone 5 MG TABLET. PO SCH (13:26)
[2017-10-10 16:26] VITALS: BP 109/62
--- NOTE | 2017-10-10 18:27 | PDOC ---
Exam Note: Brandon Note: Please also refer to the separate dictated note~for this date of service dictated separately.~Patient seen individually. Discussed the patient with Nursing staff reviewed the chart.~Reviewed interim history and current functioning. Reviewed vital signs,~Labs/ Radiology~and current medications noted below. Continue current treatment with the changes noted in the dictated addendum note Assessment: Vital Signs: Vital Signs Date Time Temp Pulse Resp B/P (MAP) Pulse Ox O2 Delivery O2 Flow Rate FiO2 10/10/17 16:26 97.7 92 20 109/62 (78) 97 10/10/17 02:40 Room Air I&O Intake and Output 10/10/17 06:59 Intake Total 2220 ml Balance 2220 ml Intake Oral 2220 ml Labs: Laboratory Tests Test 10/10/17 06:30 White Blood Count 4.2 x10^3/uL (4.0-11.0) Red Blood Count 3.00 x10^6/uL (3.50-5.40) L Hemoglobin 9.5 g/dL (12.0-15.5) L Hematocrit 28.1 % (36.0-47.0) L Mean Corpuscular Volume 94 fL (79-100) Mean Corpuscular Hemoglobin 32 pg (25-35) Mean Corpuscular Hemoglobin Concent 34 g/dL (31-37) Red Cell Distribution Width 14.4 % (11.5-14.5) Platelet Count 365 x10^3/uL (140-400) Neutrophils (%) (Auto) 47 % (31-73) Lymphocytes (%) (Auto) 32 % (24-48) Monocytes (%) (Auto) 17 % (0-9) H Eosinophils (%) (Auto) 4 % (0-3) H Basophils (%) (Auto) 1 % (0-3) Neutrophils # (Auto) 1.9 x10^3uL (1.8-7.7) Lymphocytes # (Auto) 1.3 x10^3/uL (1.0-4.8) Monocytes # (Auto) 0.7 x10^3/uL (0.0-1.1) Eosinophils # (Auto) 0.2 x10^3/uL (0.0-0.7) Basophils # (Auto) 0.0 x10^3/uL (0.0-0.2) Sodium Level 141 mmol/L (136-145) Potassium Level 4.0 mmol/L (3.5-5.1) Chloride Level 106 mmol/L (98-107) Carbon Dioxide Level 27 mmol/L (21-32) Anion Gap 8 (6-14) Blood Urea Nitrogen 15 mg/dL (7-20) Creatinine 0.8 mg/dL (0.6-1.0) Estimated GFR (Cockcroft-Gault) 70.9 BUN/Creatinine Ratio 19 (6-20) Glucose Level 100 mg/dL (70-99) H Calcium Level 8.7 mg/dL (8.5-10.1) Total Bilirubin 0.2 mg/dL (0.2-1.0) Aspartate Amino Transferase (AST) 16 U/L (15-37) Alanine Aminotransferase (ALT) 16 U/L (14-59) Alkaline Phosphatase 85 U/L (46-116) Total Protein 5.8 g/dL (6.4-8.2) L Albumin 2.5 g/dL (3.4-5.0) L Albumin/Globulin Ratio 0.8 (1.0-1.7) L Current Medications: Meds: Current Medications Lorazepam (Ativan) 2 mg 1X ONCE IV Last administered on 09/20/17at 20:00; Start 09/20/17 at 20:00; Stop 09/20/17 at 20:01; Status DC Oxycodone/ Acetaminophen (Percocet 7.5/ 325) 1 tab STK-MED ONCE .ROUTE ; Start 09/20/17 at 19:44; Stop 09/20/17 at 19:45; Status DC Oxycodone/ Acetaminophen (Percocet 7.5/ 325) 2 tab 1X ONCE PO Last administered on 09/20/17at 19:45; Start 09/20/17 at 20:00; Stop 09/20/17 at 20:01 ; Status DC Lactated Ringer's 1,000 ml @ 1,000 mls/hr 1X ONCE IV ; Start 09/20/17 at 21:00 ; Stop 09/20/17 at 21:59; Status DC Acetaminophen (Tylenol) 650 mg PRN Q6HRS PRN PO PAIN / TEMP Last administered on 10/10/17at 13:28; Start 09/20/17 at 22:00; Stop 10/10/17 at 17:56; Status DC Multi-Ingredient Ointment (Analgesic [place]) 1 kenneth PRN QID PRN TP MUSCLE PAIN; Start 09/20/17 at 22:00; Stop 10/10/17 at 17:56; Status DC Al Hydroxide/Mg Hydroxide (Mylanta Plus Xs) 15 ml PRN AFTMEALHC PRN PO DYSPEPSIA Last administered on 09/21/17at 01:24; Start 09/20/17 at 22:00; Stop at 17:56; Status DC Magnesium Hydroxide (Milk Of Magnesia) 2,400 mg PRN QHS PRN PO CONSTIPATION; Start 09/20/17 at 22:00; Stop 10/10/17 at 17:56; Status DC Lorazepam (Ativan) 0.5 mg PRN Q4HRS PRN PO ANXIETY / AGITATION Last administered on 10/04/17at 20:39; Start 09/20/17 at 22:00; Stop 10/10/17 at 17:56 ; Status DC Quetiapine Fumarate (SEROquel) 25 mg TID PO Last administered on 09/21/17at 14: 08; Start 09/20/17 at 22:30; Stop 09/21/17 at 18:38; Status DC Calcium Carbonate/ Glycine (Tums) 500 mg PRN QID PRN PO DYSPEPSIA Last administered on 10/10/17at 06:34; Start 09/20/17 at 22:00; Stop 10/10/17 at 17:56; Status DC Diphenhydramine HCl (Benadryl) 25 mg PRN BID PRN PO ALLERGIES Last administered on 10/09/17at 21:37; Start 09/20/17 at 22:00; Stop 10/10/17 at 17:56; Status DC Fluticasone Propionate (Flonase) 2 spray BID NS Last administered on 10/10/17at 09:08; Start 09/21/17 at 09:00; Stop 10/10/17 at 17:56; Status DC Folic Acid (Folic Acid) 1 mg DAILY PO Last administered on 10/10/17at 09:09; Start 09/21/17 at 09:00; Stop 10/10/17 at 17:56; Status DC Acetaminophen/ Hydrocodone Bitart (Lortab 5/325) 1 tab PRN Q6HRS PRN PO MODERATE PAIN Last administered on 10/06/17 15:39; Start 09/20/17 at 22:00; Stop 10/10/17 at 17:56; Status DC Acetaminophen/ Hydrocodone Bitart (Lortab 5/325) 2 tab PRN Q6HRS PRN PO SEVERE PAIN Last administered on 10/10/17 05:43; Start 09/20/17 at 22:00; Stop 10/10/17 at 17:56; Status DC Lidocaine (Lidoderm) 1 patch DAILY TP Last administered on 10/10/17 09:08; Start 09/21/17 at 09:00; Stop 10/10/17 at 17:56; Status DC Multivitamins/ Calcium (Thera-M Plus) 1 tab DAILY PO Last administered on 09:09; Start 09/21/17 at 09:00; Stop 10/10/17 at 17:56; Status DC Sodium Chloride (Saline Mist Nasal) 2 kenneth PRN Q2HR PRN NS Nasal Congestion Last administered on 10/09/17 20:04; Start 09/20/17 at 22:00; Stop 10/10/17 at 17 :56; Status DC Tramadol HCl (Ultram) 50 mg PRN Q6HRS PRN PO PAIN Last administered on 02:40; Start 09/20/17 at 22:00; Stop 10/10/17 at 17:56; Status DC Lactulose (Lactulose) 10 gm PRN QID PRN PO CONSTIPATION; Start 09/20/17 at 22: 15; Stop 10/10/17 at 17:56; Status DC Cetirizine HCl (ZyrTEC) 10 mg DAILY PO Last administered on 10/10/17 09:09; Start 09/21/17 at 09:00; Stop 10/10/17 at 17:56; Status DC Non-Formulary Medication (Menthol (Biofreeze)) 1 kenneth PRN TID PRN TP MUSCLE PAIN ; Start 09/20/17 at 22:00; Status UNV Thiamine HCl (Vitamin B-1) 100 mg BID PO Last administered on 10/10/17at 09:09; Start 09/21/17 at 09:00; Stop 10/10/17 at 17:56; Status DC Miscellaneous (Lidoderm Patch Removal) 1 ea QHS MC Last administered on 20:11; Start 09/20/17 at 21:00; Stop 10/10/17 at 17:56; Status DC Quetiapine Fumarate (SEROquel) 25 mg BID92 PO Last administered on 10/10/17 13: 26; Start 09/22/17 at 09:00; Stop 10/10/17 at 17:56; Status DC Quetiapine Fumarate (SEROquel) 50 mg QHS PO Last administered on 10/09/17 20:04 ; Start 09/21/17 at 21:00; Stop 10/10/17 at 17:56; Status DC Sertraline HCl (Zoloft) 25 mg DAILY PO Last administered on 09/26/17at 10:03; Start 09/24/17 at 09:00; Stop 09/27/17 at 08:59; Status DC Sertraline HCl (Zoloft) 50 mg DAILY PO Last administered on 09/29/17at 08:41; Start 09/27/17 at 09:00; Stop 09/29/17 at 16:07; Status DC Vitamin D (Vitamin D3) 50,000 unit WEEKLY PO Last administered on 10/08/17at 08: 25; Start 09/24/17 at 20:00; Stop 10/10/17 at 17:56; Status DC Gabapentin (Neurontin) 100 mg TID PO Last administered on 10/10/17 13:26; Start 09/24/17 at 21:00; Stop 10/10/17 at 17:56; Status DC Buspirone HCl (Buspar) 5 mg BID@0900,1300 PO Last administered on 09/26/17at 10: 05; Start 09/26/17 at 09:00; Stop 09/26/17 at 11:29; Status DC Cyanocobalamin (Vitamin B-12) 1,000 mcg QMONTH IM Last administered on at 10:05; Start 09/26/17 at 09:00; Stop 10/10/17 at 17:56; Status DC Buspirone HCl (Buspar) 5 mg TID@0900,1300,1500 PO Last administered on at 12:46; Start 09/26/17 at 13:00; Stop 09/26/17 at 13:00; Status DC Buspirone HCl (Buspar) 5 mg TID@0900,1300,1700 PO Last administered on at 16:47; Start 09/26/17 at 17:00; Stop 10/08/17 at 18:59; Status DC Mirtazapine (Remeron) 7.5 mg QHS PO Last administered on 10/08/17at 19:58; Start 09/27/17 at 21:00; Stop 10/09/17 at 18:56; Status DC Sertraline HCl (Zoloft) 75 mg DAILY PO Last administered on 10/04/17at 09:59; Start 09/30/17 at 09:00; Stop 10/04/17 at 18:55; Status DC Sertraline HCl (Zoloft) 100 mg DAILY PO Last administered on 10/10/17at 09:09; Start 10/05/17 at 09:00; Stop 10/10/17 at 17:56; Status DC Buspirone HCl (Buspar) 5 mg 1300 PO Last administered on 10/10/17at 13:26; Start 10/09/17 at 13:00; Stop 10/10/17 at 17:56; Status DC Mirtazapine (Remeron) 15 mg QHS PO Last administered on 10/09/17at 20:10; Start 10/09/17 at 21:00; Stop 10/10/17 at 17:56; Status DC Active Scripts Active Reported Buspirone Hcl 5 Mg Tablet 5 Mg PO DAILY AT 1300 Zoloft (Sertraline Hcl) 100 Mg Tablet 100 Mg PO DAILY Seroquel (Quetiapine Fumarate) 25 Mg Tablet 25 Mg PO BID92 Seroquel (Quetiapine Fumarate) 50 Mg Tablet 50 Mg PO HS Mirtazapine 15 Mg Tablet 7.5 Mg PO HS Milk Of Magnesia (Magnesium Hydroxide) 400 Mg/5 Ml Oral.susp 2,400 Mg PO PRN QHS PRN Mag-Al Plus Xs Suspension (Mag Hydrox/Al Hydrox/Simeth) 30 Ml Oral.susp 15 Ml PO PRN AFTMEALHC PRN Lorazepam 0.5 Mg Tablet 0.5 Mg PO PRN Q4HRS PRN Gabapentin 100 Mg Capsule 100 Mg PO TID Cyanocobalamin Injection (Cyanocobalamin (Vitamin B-12)) 1,000 Mcg/1 Ml Vial 1, 000 Mcg IM QMONTH D3-50 (Cholecalciferol (Vitamin D3)) 50,000 Unit Capsule 50,000 Unit PO WEEKLY Every week on saturday Acetaminophen 500 Mg Tablet 650 Mg PO PRN Q6HRS PRN Claritin (Loratadine) 10 Mg Tablet 10 Mg PO DAILY [place] (Sodium Chloride) 44 Ml [place] 1 [place] NS PRN Q2HR PRN Fluticasone Propionate Nasal [place] (Fluticasone Propionate) 16 Gm [place].susp 2 [place] NS BID Benadryl (Diphenhydramine Hcl) 25 Mg Capsule 25 Mg PO PRN BID PRN Ultram (Tramadol HCl) 50 Mg Tablet 50 Mg PO PRN Q6HRS PRN Calcium Carbonate 500 Mg Tablet 500 Mg PO PRN QID PRN Biofreeze (Menthol) 118 Ml Gel..ml. 1 [place] TP PRN TID PRN Lactulose 10 Gm/15 Ml Solution 10 Gm PO PRN QID PRN Vitamin B-1 (Thiamine Mononitrate) 100 Mg Tablet 100 Mg PO BID Thera M Plus Tablet (Multivits,Ca,Minerals/Iron/FA) 1 Each Tablet 1 Tab PO DAILY Lidocaine 1 Each Adh..patch 1 Patch TP DAILY [place] 5-325 Tablet (Hydrocodone Bit/Acetaminophen) 1 Each Tablet 2 Tab PO PRN Q6HRS PRN [place] 5-325 Tablet (Hydrocodone Bit/Acetaminophen) 1 Each Tablet 1 Tab PO PRN Q6HRS PRN Folic Acid 1 Mg Tablet 1 Mg PO DAILY I have reviewed the current psychotropics carefully including drug interactions. Risk benefit ratio favors no change other than as noted in my dictated progress note. Diagnosis: Problems: (1) Major depressive disorder, recurrent episode (2) Impulse control disorder (3) Anxiety disorder (4) Alcohol dependence (5) Alcohol-induced persisting dementia DAVID SWAN MD October 10, 2017 18:27
--- NOTE | 2017-10-11 23:03 | DS ---
DATE OF DISCHARGE: 10/10/2017 This is a late entry of 10/10/2017, covers elements not covered in my initial note of 10/10/2017. REASON FOR ADMISSION: Please refer to the admission history for details. Briefly, the patient is a 72-year-old female referred to us from [facility] on account of worsening symptoms of depression, confusion, and suicidal statements with marked mood lability. The patient had significant psychosocial stressors with the loss of her approximately 5 weeks previously. 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 SIGNIFICANT FINDINGS AND CLINICAL COURSE: Following admission, the patient was seen daily individually by myself, followed medically per Dr. Andrew/Dr. Ledesma. She was quite forgetful, confused, anxious, distressed with chronic pain of her sciatica. Medically, she was followed by Dr. Andrew and from a psychiatric standpoint, psychotropics were adjusted. She seemed to respond to a combination of Seroquel 25 mg b.i.d., 50 mg at bedtime; Zoloft 100 mg a day, BuSpar 10 mg 3 times a day, Remeron 15 mg at bedtime, and Ativan p.r.n. Prior to discharge on 10/10/2017, still complained of left sciatica pain. REVIEW OF SYSTEMS: No CV, , pulmonary, eye system symptoms on review. MENTAL STATUS EXAM: Oriented to herself and situation. Speech coherent, abstraction fair, computation impaired, language function intact. Mood and affect, lability were improved. No suicidal ideation at discharge. CONDITION AT DISCHARGE: Improved. 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 Rest unchanged from admission. DISCHARGE MEDICATIONS: Please refer to the [facility]AD. DISCHARGE INSTRUCTIONS: Outpatient psychiatric and medical followup at the shelter. DAVID SWAN MD DR: KATHERINE/mauro JOB#: [id number] / [id number]
--- NOTE | 2017-10-12 04:38 | PN ---
DATE: 10/09/2017 This is a late entry for 10/09/2017 covers elements not covered in my initial note of 10/09/2017. SUBJECTIVE: I met with the patient in the evening. The patient slept 3-3/4 hours previous evening. Overall, she remains somewhat anxious and complains of radiating pain in the back of her left lower extremity and deferred to Dr. Andrew. She does have short-term memory deficits. REVIEW OF SYSTEMS: No CV, , pulmonary, eye, ENT system symptoms on review. MENTAL STATUS EXAM: Oriented to herself and situation. Speech is coherent, abstraction fair, computation impaired, language function intact. Mood and affect still somewhat dysphoric, anxious, but improved. No suicidal ideation. No psychotic symptoms. LABORATORY DATA: Reviewed. IMPRESSION: Unchanged from initial note. PLAN: Increase Remeron from 7.5 mg at bedtime to 15 mg at bedtime to help with insomnia and anxiety. Continue rest unchanged. MAN Dannielle SWAN MD DR: KATHERINE/mauro JOB#: [id number] / [id number]
--- NOTE | 2017-10-12 21:25 | PN ---
DATE: 10/10/2017 This is a late entry for 10/10/2017 and covers the elements not covered in my initial note of 10/10/2017. SUBJECTIVE: I met with the patient in the evening. The dictation ends here. MAN Dannielle SWAN MD DR: KATHERINE/mauro JOB#: [id number] / [id number]
== END 2017-10-10 17:30 | disposition home or self-care (01) | DRG 885 ==
LOC: ER 18:25 → GEROPSY 21:30
PROVIDERS: ADMIT Psychiatry & Neurology Psychiatry; ATTEND Psychiatry & Neurology Psychiatry
DX: F33.3 Major depressive disorder, recurrent, severe with psychotic symptoms (principal); G30.9 Alzheimer's disease, unspecified; F01.51 Vascular dementia, unspecified severity, with behavioral disturbance; F10.27 Alcohol dependence with alcohol-induced persisting dementia; G62.9 Polyneuropathy, unspecified; F02.81 Dementia in other diseases classified elsewhere, unspecified severity, with behavioral disturbance; R45.851 Suicidal ideations; D64.9 Anemia, unspecified; F33.41 Major depressive disorder, recurrent, in partial remission; F43.22 Adjustment disorder with anxiety; E86.0 Dehydration; F63.9 Impulse disorder, unspecified; G89.29 Other chronic pain; K21.9 Gastro-esophageal reflux disease without esophagitis; M54.32 Sciatica, left side; R29.6 Repeated falls; Z90.710 Acquired absence of both cervix and uterus; Z79.899 Other long term (current) drug therapy; Z88.2 Allergy status to sulfonamides
CPT/HCPCS: 36415; 70450; 71045; 72125; 80048; 80053; 80061; 80307; 81001; 82306; 82553; 82607; 83036; 83540; 83550; 83735; 83880; 84436; 84443; 84480; 84484; 85025; 85045; 85610; 85651; 85730; 86593; 87040; 93005; G0238; J2060; J3420; Q0163; G0479